=== PATIENT | female | born 1955 | race African-American/Black ===

== ENCOUNTER 2016-05-22 04:42 | Inpatient (IN) | payer OTHER ==
--- NOTE | ~2016-05-22 | BMI ---
[facility] Nutrition Therapy DATE: 05/23/16 Patient: JULIO JIMENEZ Physician: MAYUR Address: [address] [facility] Room/Bed: [address] [place] [address], Zip: [place] [address] Admit Date: 05/22/16 Date of : 51 Height: 4 9 Weight: 189 86 HIGH BMI NOTE: ANTHROPOMETRICS: HT: 4'9" WT: 86 KG BMI: 41 INTERVENTION: 1. CLEAR LIQUID DIET RECOMMENDATIONS: 1. ONCE MEDICALLY FEASIBLE, ADVANCE TO A HEART HEALTHY DIET TOLERATED. Respectfully, WILDER OSULLIVAN RD, LD Food and Nutritional Services [facility] cc: client file
--- NOTE | ~2016-05-22 | CR63 ---
[facility] A Service of [facility] & [facility] RADIOLOGY TEXT RESULTS PATIENT: JULIO JIMENEZ LOCATION: [facility] 321- : 53 UNIT #: [id number] AGE: [address]: SISSY SORTO MD SEX: F ORDER DR: [id number] [facility] [address] [facility]. [place], [place] [address] [id number] I MR#: [id number] Acc #: [id number] NAME: JULIO JIMENEZ : 1955 SEX: F STUDY DATE/TIME: 05/22/2016 10:25 UNIT: [address] ROOM: [facility] STUDY DESCRIPTION: CR Chest 2 View Attending Physician: Rayna Riley M.D. Ordering Physician: Rayna Riley M.D. Primary Care Physician: Liv Richardson M.D. MEDICAL IMAGING REPORT This report is preliminary unless electronic signature is present EXAM Chest PA and lateral. HISTORY Cough, congestion, shortness of breath beginning 1 week ago. FINDINGS PA and lateral views of the chest are obtained. The cardiac size in the patient is upper limits of normal. Pulmonary vascular markings are normal. The examination shows an infiltrate in the right lower lobe posteriorly. This is best appreciated on the lateral film. Postsurgical changes are seen in the aorticopulmonary window and there is enlargement of the central pulmonary arteries. CONCLUSION 1. Right lower lobe infiltrate consistent with pneumonia. 2. Mild cardiac enlargement with enlargement of the central pulmonary arteries. Postsurgical changes in the left hilum. Dictated by... Edison Crystal M.D. THIS IS AN ELECTRONICALLY VERIFIED REPORT Edison Crystal M.D. at 05/24/2016 2:19 PM ASHLEIGH/rosmery TD: 05/22/2016 22:20 JOB #: [id number] MEDICAL IMAGING REPORT Page 1 of 1 COPY
--- NOTE | ~2016-05-22 | HP ---
Unit #: [id number] #: [id number] Patient: JULIO JIMENEZ [id number] [address] [place], [place] [address] [id number] I MR#: [id number] NAME: JULIO JIMENEZ ROOM: 321 Age: 60 Sex: F Admission Date: 05/22/2016 : 1955 Attending Physician: Rayna Riley M.D. Primary Care Physician: Liv Richardson M.D. HISTORY AND PHYSICAL CHIEF COMPLAINT Abdominal pain. HISTORY OF PRESENT ILLNESS The patient is a 60-year-old female with a past medical history of chronic kidney disease, COPD, obstructive sleep apnea, lung cancer, diabetes, hypertension, hyperlipidemia, and schizoaffective disorder, who presented to the emergency department for evaluation of the above. The patient is a poor historian and somewhat somnolent. She states that she has had a four to five day history of worsening abdominal pain. The pain is in her upper abdomen. She describes it as "sharp." It has been constant in nature. It is exacerbated by eating. There are no alleviating factors. She has had chills but no documented fever. She has had nausea and vomiting in association with the pain. Of note, she was hospitalized at [facility] two weeks ago for pancreatitis (no records). In the emergency department, a CT of the abdomen and pelvis was done and showed findings concerning for acute pancreatitis with no definite pseudocyst. There is also possible infiltrate or atelectasis in the right lower lobe. She was given one liter of normal saline, as well as Dilaudid in the emergency department. She was initially admitted by Dr. Riley, and Zosyn was started. Additionally, Drs. Mcneill and Jerald were consulted for possible pneumonia and acute pancreatitis, respectively. Also of note, the patient received 1 mg of Dilaudid in the emergency department. Per ER notes, the patient became difficult to rouse. Oxygen saturation was noted to be 55% to 60% on room air. She was given 0.8 mg of Narcan. An ABG was done and showed a pH of 7.337, PCO2 of 53.7, and PO2 of 84.1 on two liters. PAST MEDICAL HISTORY 1. Admission to [facility] two weeks ago for pancreatitis (no records). 2. Admission to [facility] August 21-2015, for abdominal pain and acute on chronic kidney disease. 3. Spinal stenosis. 4. Diabetes. 5. Schizoaffective disorder. 6. Chronic obstructive pulmonary disease, not on home oxygen. 7. Obstructive sleep apnea, not on CPAP. 8. Hypertension. 9. Hyperlipidemia. 10. History of pancreatitis. 11. History of lung cancer, status post partial lobectomy. Unit #: [id number] #: [id number] Patient: JULIO JIMENEZ PAST SURGICAL HISTORY 1. Partial lung lobectomy for malignancy. 2. Cholecystectomy. 3. Partial thyroidectomy. 4. Hysterectomy. 5. EGD and colonoscopy. SOCIAL HISTORY The patient lives with her daughter. She walks with a cane. She smokes a pack of cigarettes daily. She denies alcohol use. FAMILY HISTORY Notable for her mother having chronic kidney disease. ALLERGIES No known allergies. HOME MEDICATIONS 1. Bumex. 2. Omeprazole. 3. Divalproex. 4. Donepezil. 5. Doxycycline. 6. Gabapentin. 7. Hydralazine. 8. Mirtazapine. 9. Quetiapine. 10. Zoloft. Home medications will need to be reviewed and verified. REVIEW OF SYSTEMS A complete review of systems is negative except as indicated in the History of Present Illness. The patient states that her blood sugars are typically in the 200-300 range. PHYSICAL EXAMINATION VITAL SIGNS: Temperature is 98.7, pulse 68, respirations 18, blood pressure 117/65, and oxygen saturation currently 95% on 3 liters but previously in the 50s after Dilaudid. GENERAL: Patient is an female who is somnolent but wakes to voice. She falls asleep intermittently during the course of our interaction. HEENT: Head is atraumatic. Mucous membranes are moist. NECK: Supple. Trachea is midline. CARDIOVASCULAR: Regular rate and rhythm. LUNGS: Decreased breath sounds bilaterally with a few scattered expiratory wheezes. Breathing is not labored. ABDOMEN: Soft. She is mildly tender to palpation in the epigastric area. Bowel sounds are present in all four quadrants. EXTREMITIES: Nontender with no pedal edema. NEUROLOGIC: Patient is oriented to person and place. She is unsure of the year. PSYCHIATRIC: Patient is cooperative. SKIN: Skin of examined areas is warm and dry. DIAGNOSTIC STUDIES Unit #: [id number] #: [id number] Patient: JULIO JIMENEZ LABORATORY: Complete blood count notable for MCV of 80.4. Comprehensive metabolic panel notable for sodium of 127, chloride 89, glucose 155, BUN and creatinine 38 and 2.1, respectively, calcium is 8.2 but corrects when albumin of 2.7 is accounted for, and alkaline phosphatase is 119. Amylase and lipase are 319 and 293, respectively. Arterial blood gas shows a pH of 7.337, PCO2 of 53.7, and PO2 of 84.1, on 2 liters. IMAGING: CT of the abdomen and pelvis shows findings concerning for acute pancreatitis, as well as possible atelectasis versus infiltrate. ASSESSMENT The patient is a 60-year-old female with: 1. Acute pancreatitis. The patient denies alcohol use. Home medications will need to be reviewed. Another list includes hydrochlorothiazide which could possibly be contributing. She was hospitalized at [facility] within the past month for pancreatitis. Records have been requested by Dr. Marques. Additionally, a right upper quadrant ultrasound has been ordered. 2. Acute respiratory failure, hypoxic. The patient had received Dilaudid. CT of the abdomen and pelvis showed possible atelectasis versus infiltrate. The patient states that she has had a cough but no fever. Dr. Mcneill is following. The patient is currently on Zosyn. 3. Hyponatremia. The patient's sodium was 139 on February 29, 2016. It is 127 today. 4. Chronic kidney disease. The patient's creatinine was 2.4 on February 29, 2016. It is 2.1 today. The patient has seen Dr. Massimo De La Fuente in the past. 5. Chronic obstructive pulmonary disease with continued tobacco abuse. 6. Obstructive sleep apnea, not on CPAP. 7. History of lung cancer, status post partial lobectomy. 8. Diabetes. 9. Hypertension. 10. Hyperlipidemia. 11. Schizoaffective disorder. 12. Possible altered mental status. The patient's baseline is unknown. She has a possible history of dementia. PLAN 1. Admit to intermediate level. 2. Dr. Marques has already seen the patient regarding pancreatitis. A right upper quadrant ultrasound has been ordered. She is receiving fluids of normal saline at 100 mL/hour. 3. Repeat ABG. 4. Procalcitonin level. 5. Blood cultures x2 if not already done. 6. Sputum culture and sensitivity. 7. Supplemental oxygen. 8. P.r.n. DuoNebs. 9. Neuro checks. 10. TSH, B12, and folate. 11. Check EKG and cardiac enzymes. 12. Urine sodium and osmolality. 13. Serum osmolality. 14. Repeat BMP later this evening to follow up hyponatremia. 15. Repeat labs in the morning including amylase and lipase. 16. SCDs for DVT prophylaxis. 17. Additional workup and consultants based on above. Unit #: [id number] #: [id number] Patient: JULIO JIMENEZ 1. Dictated by Maye Valentine M.D. AW/rosalio TD: 05/22/2016 16:37 JOB #: [id number] HISTORY AND PHYSICAL Page 1 of 1 X Maye Valentine MD X HISTORY AND PHYSICAL
--- NOTE | ~2016-05-22 | US6 ---
[facility] A Service of [facility] & [facility] RADIOLOGY TEXT RESULTS PATIENT: JULIO JIMENEZ LOCATION: [facility] - : 53 UNIT #: [id number] AGE: [address]: SISSY SORTO MD SEX: F ORDER DR: [id number] [facility] [address] [facility]. [place], [place] [address] [id number] I MR#: [id number] Acc #: [id number] NAME: JULIO JIMENEZ : 1955 SEX: F STUDY DATE/TIME: 05/22/2016 16:46 UNIT: A U ROOM: [facility] STUDY DESCRIPTION: US Abdominal Limited Attending Physician: Rayna Riley M.D. Ordering Physician: Rayna Riley M.D. Primary Care Physician: Liv Richardson M.D. MEDICAL IMAGING REPORT This report is preliminary unless electronic signature is present EXAM Right upper quadrant ultrasound, 05/22/2016 INDICATIONS 60-year-old female with pain for a month. History of cholecystectomy 10 years ago. Right lower quadrant pain for a month according to the patient. Pancreatitis. TECHNIQUE Sonographic imaging of the right upper quadrant was performed. Correlation is made with CT 05/22/2016. FINDINGS RIGHT UPPER QUADRANT ULTRASOUND: The pancreas was obscured by bowel gas and not seen or evaluated. Please see CT 05/22/2016 for further details regarding abnormal appearance of the pancreas and acute pancreatitis. Survey images of the liver demonstrate no focal mass or intrahepatic ductal dilatation or ascites. Liver measures approximately 17.9 cm, long axis. The right kidney is nonobstructed and measures about 11.2 cm, long axis. In the lower-pole right kidney, there is a probably benign complicated cyst measuring 16 x 14 mm; this appears to correspond to a very subtle proteinaceous or hemorrhagic cyst in the lower-pole right kidney. Suggest a followup ultrasound in 1 year to reassess stability. Gallbladder is surgically absent. Extrahepatic common bile duct is dilated up to about 1 cm, likely physiologic given the history of cholecystectomy. IMPRESSION 1. Surgical absence of the gallbladder. 2. The pancreas was not visualized or assessed. Please see CT performed 05/22/2016 for further details regarding acute pancreatitis in this patient. [facility] A Service of [facility] & [facility] RADIOLOGY TEXT RESULTS PATIENT: JULIO JIMENEZ LOCATION: [facility] 321-01 : 53 UNIT #: [id number] AGE: [address]: SISSY SORTO MD SEX: F ORDER DR: 3. Probably benign proteinaceous or hemorrhagic cyst in the lower-pole right kidney measures 16 mm. See discussion above regarding followup recommendations. 4. Probable physiologic dilatation of the extrahepatic common bile duct up to 10 mm. Dictated by... Rock Schafer M.D. THIS IS AN ELECTRONICALLY VERIFIED REPORT Rock Schafer M.D. at 05/23/2016 8:37 AM BÁRBARA/carl TD: 05/23/2016 00:59 JOB #: [id number] MEDICAL IMAGING REPORT Page 1 of 1 COPY
--- NOTE | ~2016-05-22 | EKG ---
PATIENT: JULIO JIMENEZ UNIT #: [id number] Ventricular Rate: 71 BPM Atrial Rate: 71 BPM P-R Interval: 202 ms QRS Duration: 94 ms Q-T Interval: 454 ms QTC Calculation(Bezet): 493 ms P Russian [place]: 89 degrees Calculated R Russian Mission: 89 degrees Calculated T Russian Mission: 85 degrees Diagnosis Line: Normal sinus rhythm Diagnosis Line: Prolonged QT Diagnosis Line: Abnormal ECG Diagnosis Line: When compared with ECG of 04-MAR-2015 01:05, Diagnosis Line: Questionable change in QRS axis Diagnosis Line: Confirmed by JAQUI STRATTON MD ([id number]) on 05/22/2016 Diagnosis Line: 10:32:47 PM INTERPRETING MD: CHAYITO ALANIZ
--- NOTE | ~2016-05-22 | CT4 ---
[facility] A Service of [facility] & [facility] RADIOLOGY TEXT RESULTS PATIENT: JULIO JIMENEZ LOCATION: [facility] 321-01 : 51 UNIT #: [id number] AGE: [address]: Rayna Riley MD SEX: F ORDER DR: [id number] [facility] [address] [facility] [place], [place] [address] [id number] I MR#: [id number] Acc #: [id number] NAME: JULIO JIMENEZ : 1955 SEX: F STUDY DATE/TIME: 05/22/2016 04:31 UNIT: CEDOF ROOM: [address] STUDY DESCRIPTION: CT Abd and Pelv Wo Cont Attending Physician: Rayna Riley M.D. Ordering Physician: Owen Alexander M.D. Primary Care Physician: Liv Richardson M.D. MEDICAL IMAGING REPORT This report is preliminary unless electronic signature is present EXAM CT abdomen and pelvis 05/22/2016 at 04:31 INDICATION Generalized abdominal pain with nausea for 4 days. History of pancreatitis. TECHNIQUE Axial noncontrast images were obtained through the abdomen and pelvis. Multiplanar reformats were obtained. Comparison made with 03/19/2016. This CT examination was performed with one or more of the following radiation dose reduction techniques: automatic exposure control, adjustment of mA and/or kV according to patient size, and iterative reconstruction. FINDINGS ABDOMEN: Heart is enlarged. New infiltrate or atelectasis noted in the right lower lobe. There is some chronic scarring in the lingula. There is a small hiatal hernia. Gallbladder surgically absent. There is diffuse fat stranding around the pancreas compatible with acute pancreatitis. This is worse than on the prior study. No definite pseudocyst is seen on this noncontrast study. No renal or ureteral stones are seen. There is no hydronephrosis. The adrenal glands are enlarged but unchanged, probably secondary to hyperplasia. Unenhanced solid organs are otherwise normal. There is diffuse atherosclerotic disease. Unopacified GI tract is otherwise grossly normal. PELVIS: The appendix is normal. The remainder of the unopacified GI tract is normal as well. The bladder is normal. Uterus is surgically absent. IMPRESSION 1. Acute pancreatitis. The degree of stranding is worse as compared with STS. [facility] A Service of [facility] RADIOLOGY TEXT RESULTS PATIENT: JULIO JIMENEZ LOCATION: [facility] 321-01 : 51 UNIT #: [id number] AGE: [address]: Rayna Riley MD SEX: F ORDER DR: 03/19/2016. No definite pseudocysts are seen. 2. Infiltrate or atelectasis in the right lower lobe. Atelectasis is favored. 3. No renal or ureteral stones. No hydronephrosis. 4. Grossly normal unopacified GI tract, including the appendix. 5. Hysterectomy and cholecystectomy. 6. Diffuse atherosclerotic disease. Dictated by... Antonio Becerril Jr., M.D. THIS IS AN ELECTRONICALLY VERIFIED REPORT Antonio Becerril Jr., M.D. at 05/22/2016 10:39 PM YAMILETH/jennifer TD: 05/22/2016 07:19 JOB #: [id number] MEDICAL IMAGING REPORT Page 1 of 1 COPY
--- NOTE | ~2016-05-22 | DS ---
Unit #: [id number] #: [id number] Patient: JULIO JIMENEZ [id number] [address] [place], [place] [address] [id number] MR#: [id number] NAME: JULIO JIMENEZ ROOM: 321 Age: 60 Sex: F Admission Date: 05/22/2016 : 1955 Discharge Date: 05/24/2016 Attending Physician: Mason De La Fuente M.D. Primary Care Physician: Liv Richardson M.D. DISCHARGE SUMMARY DISCHARGE DIAGNOSES 1. Acute pancreatitis. 2. Acute respiratory failure, hypoxic. 3. Hyponatremia. 4. Chronic kidney disease. 5. Chronic obstructive pulmonary disease. 6. Right lower lobe pneumonia. HOSPITAL COURSE The patient is a 60-year-old female with history of chronic kidney disease, COPD, obstructive sleep apnea and lung cancer. Presented to the emergency room with abdominal pain. See the H and P for full detailed history. The patient was admitted with acute pancreatitis. CT scan of the abdomen and pelvis was done that showed findings concerning for acute pancreatitis with no definite pseudocyst. The chest x-ray showed right lower lobe pneumonia. The patient was started on IV antibiotics with Zosyn. The patient's hospital course was complicated with hypoxia secondary to Dilaudid. The patient was more somnolent after Dilaudid. The patient was hypoxic with saturation of 55% to 60% on room air. The patient was weaned off Dilaudid and started on Lortab, the home medications. However, the patient signed out AMA last night without any medications secondary to back pain. The patient did not receive any pain medications. PHYSICAL EXAMINATION VITALS: Yesterday during rounding, the patient's vitals were a temperature of 98.4, pulse 94, respirations 20, blood pressure 180/98. HEENT: Head atraumatic, normocephalic. Pupils are equal, round and reactive to light and accommodation. Extraocular movements are intact. NECK: Supple. LUNGS: Decreased air entry at the bases. HEART: Regular rate. ABDOMEN: Positive (1) tenderness. MUSCULOSKELETAL: Back pain. EXTREMITIES: No cyanosis. NEUROLOGIC: Alert, awake, oriented and asking for more pain medication. DIAGNOSTIC STUDIES LAB DATA: The patient's blood gases - pH of 7.35, pCO2 53.8, pO2 65, oxygen saturation 89.5. Glucose 186, BUN 46, creatinine 1.7, sodium 135, potassium 4.3, chloride 98, bicarb 27, calcium 7.8, AST 10, ALT 8, alkaline phosphatase 121, amylase 52, lipase 36. WBC 7.3, hemoglobin 10.9, hematocrit 34.7, platelets 300. UA shows 1+ leukocyte esterase. Blood cultures remain negative. Sputum culture shows normal respiratory myah. Unit #: [id number] #: [id number] Patient: JULIO JIMENEZ IMAGING: The patient had a CT of the abdomen and pelvis that showed acute pancreatitis. The degree of stranding is worse as compared with 03/19/2016. No definite pseudocysts are seen. Infiltrate or atelectasis in the right lower lobe. Atelectasis is favored. No renal or ureteral stones. No hydronephrosis. The patient had a chest x-ray that showed right lower lobe infiltrate consistent with pneumonia. The patient also had an abdominal ultrasound that showed surgical absence of the gallbladder. The patient signed out AMA without any home medications. Dictated by... Rukhsana Ho/francia TD: 05/28/2016 10:20 JOB #: [id number] DISCHARGE SUMMARY Page 1 of 1 X X DISCHARGE SUMMARY
--- NOTE | ~2016-05-22 | CO ---
Unit #: [id number] #: [id number] Patient: JULIO JIMENEZ [id number] [address] [address] [id number] I MR#: [id number] NAME: JULIO JIMENEZ ROOM: 321 Age: 60 Sex: F Admission Date: 05/22/2016 : 1955 Attending Physician: Mason De La Fuente M.D. Primary Care Physician: Liv Richardson M.D. Consultation Date: 05/22/2016 CONSULTATION REPORT REASON FOR CONSULT COPD. HISTORY OF PRESENT ILLNESS This is a very poor historian. 60-year-old -[place] female with past medical history significant for chronic kidney disease, COPD, obstructive sleep apnea noncompliant with CPAP, lung cancer, diabetes, hypertension, hyperlipidemia and schizoaffective disorder, who presented to the emergency room for evaluation of abdominal pain. The patient apparently was complaining of sharp abdominal pain even though right now she is feeling more comfortable. She said the ER physician gave her some IV pain medication that took care of it. However, also, she admitted that she has been short of breath, wheezing and coughing for the last few days. She is on oxygen and she is supposed to be on CPAP but she is very noncompliant. PAST MEDICAL HISTORY 1. Recurrent pancreatitis. 2. Diabetes. 3. Schizoaffective disorder. 4. COPD. 5. Obstructive sleep apnea. 6. Hypertension. 7. Hyperlipidemia. 8. History of lung cancer, status post partial lobectomy. PAST SURGICAL HISTORY 1. Partial lung lobectomy for malignancy. 2. Cholecystectomy. 3. Partial thyroidectomy. 4. Hysterectomy. 5. EGD. 6. Colonoscopy. SOCIAL HISTORY The patient lives with her daughter. She walks with a cane. She smokes a pack of cigarettes day. No history of alcohol or drug abuse. FAMILY HISTORY Chronic kidney disease. ALLERGIES No known drug allergies. Unit #: [id number] #: [id number] Patient: JULIO JIMENEZ HOME MEDICATIONS 1. Bumex. 2. Omeprazole. 3. Donepezil. 4. Doxycycline. 5. Neurontin. 6. Hydralazine. 7. Mirtazapine. 8. Quetiapine. 9. Zoloft. REVIEW OF SYSTEMS Twelve point review of systems were obtained and were as mentioned above. PHYSICAL EXAMINATION VITALS: Temperature 98.3, respiratory rate 22, O2 saturation 96%, blood pressure 123/69. HEENT: Atraumatic, normocephalic. PERRLA, EOMI. NECK: Supple. No JVD, no lymphadenopathy. CHEST: Bilateral diffuse rhonchi and wheezing. HEART: S1, S2. No murmurs or gallops or rubs. ABDOMEN: Soft, nontender. Bowel sounds positive. No hepatosplenomegaly. EXTREMITIES: No edema or cyanosis. SKIN: No rashes. HAT CUTTER: Awake, alert. No focal motor/sensory deficits. DIAGNOSTIC STUDIES LABORATORY: Creatinine 2.1, sodium 133, chloride 96, CO2 28, white blood count 8.3. IMAGING: Chest x-ray - no acute infiltrate. ASSESSMENT 1. Acute exacerbation of chronic obstructive pulmonary disease. 2. Acute on chronic pancreatitis. 3. Obstructive sleep apnea noncompliance. 4. Chronic anemia. 5. Chronic kidney disease. 6. Hyponatremia. 7. Morbid obesity. PLAN 1. Will continue patient on IV hydration with pain management. 2. IV steroids, on bronchodilator. 3. IV antibiotics. 4. GI eval for recurrent pancreatitis. 5. Physical therapy. 6. DVT prophylaxis. Dictated by... Rukhsana Campbell Unit #: [id number] #: [id number] Patient: JULIO JIMENEZ TD: 05/24/2016 08:05 JOB #: [id number] CONSULTATION REPORT Page 1 of 1 X BRITTANY CHAVEZ MD CONSULTATION REPORT
[2016-05-22 03:08] LABS: BASOPHIL# 0.1 X10e3 (0-0.3); EOSINOPHIL# 0.1 X10e3 (0-0.7); EOSINOPHIL% 0.5 % (0.0-7.0); HEMATOCRIT 37.6 % (35.0-45.0); LYMPHOCYTE# 2.3 X10e3 (1.0-3.5); LYMPHOCYTE% 22.6 % (17.0-45.0); MEAN CELL VOLUME 80.4 FL (83-96); MEAN CORPUSCULAR HEMOGLOBIN 25.7 PG (28-34); MEAN CORPUSCULAR HGB CONC 31.9 g/dL (30-36); MEAN PLATELET VOLUME 8.4 FL (6.5-11.5); MONOCYTE# 0.8 X10e3 (0-1.0); MONOCYTE% 7.5 % (3.0-12.0); NEUTROPHIL% 68.4 % (40-75); PLATELET COUNT 344 X10e3 (140-420); RED BLOOD COUNT 4.68 X10e (3.90-5.30); RED CELL DISTRIBUTION WIDTH 20.2 % (11.0-15.5); WHITE BLOOD COUNT 10.3 X10e3 (4.0-10.5)
[2016-05-22 03:10] LABS: DIFF IND NO
[2016-05-22 03:34] LABS: ALBUMIN SERUM 2.7 g/dL (3.5-5.0); BILIRUBIN, DIRECT 0.1 mg/dL (0.0-0.2); BILIRUBIN,INDIRECT 0.5 mg/dL (0.0-0.9); BILIRUBIN,TOTAL 0.6 mg/dL (0.2-2.0); BUN/CREATININE RATIO 18.09; CALCIUM SERUM 8.2 mg/dL (8.4-10.2); CREATININE SERUM 2.1 mg/dL (0.6-1.4); GLOM FILT RATE Estimated 28.5 mL/min (>60); POTASSIUM 3.5 mmol/L (3.5-5.1); PROTEIN TOTAL SERUM 7.3 g/dL (6.0-8.3)
[~2016-05-22 04:42] MED LIST: ACID REDUCER20 MG PO; ALBUTEROL17 GM INH; ALPHAGAN P5 ML OD; ALPHAGAN P5 ML OP; ALPRAZOLAM PO; AMLODIPINE BESYL5 MG PO; ARICEPT PO; ASPIRIN PO; ASPIRIN81 MG PO; ATORVASTATIN CA10 MG PO; ATORVASTATIN CA20 MG PO; BACLOFEN10 MG PO; BAYER ASPIRIN325 M1 PO; BENTYL20 MG; BENZONATATE PO; BUMEX1 MG PO; CLARITIN10 M2 PO; COGENTIN PO; COMBIVENT INH14.7 G1 IH; COMBIVENT U/D3 ML INH; COUMADIN5 MG PO; DARVOCET-N 1001 TAB PO; DEPAKOTE PO; DICYCLOMINE HCL20 MG PO; DIVALPROEX SOD500 M1 PO; DIVALPROEX SOD500 M2 PO; DULERA 200 MCG/13 GM IH; FLEXERIL10 MG PO; FUROSEMIDE40 MG PO; GLUCOPHAGE500 MG PO; GUAIFENESIN LA600 M1 PO; HUMALOG MI100 UNIT/2 SUBQ; HUMALOG MI100 UNIT/5 SUBQ; JANUMET 50-1,1 UDTAB PO; JANUVIA PO; K-DUR20 ME1 PO; LAMICTAL PO; LANTUS100 U/M1 SQ; LASIX PO; LEVAQUIN750 M1 PO; LEVAQUIN750 MG PO; LEVOFLOXACIN500 MG PO; LEXAPRO PO; LINZESS145 MCG PO; LIPITOR20 MG PO; LISINOPRIL PO; LISINOPRIL10 MG PO; LISINOPRIL20 MG PO; LITE COAT ASPI325 M1 PO; LOPRESSOR HCT1 EACH PO; LORTAB 101 TAB 10/5 PO; LORTAB 7.5-3251 EACH PO; LOVENOX100 MG/ML INJ; LYRICA50 MG PO; MACROBID 100 M100 MG PO; MELOXICAM15 MG PO; MEMANTINE HCL10 MG PO; METFORMIN HCL500 M3 PO; METFORMIN PO; METOPROLOL SUCC50 MG PO; METOPROLOL TAR25 MG PO; NAMENDA10 MG PO; NAPROXEN PO; NORVASC PO; NORVASC10 MG PO; NOVOLOG100 U/M2 SQ; NOVOLOG7030 SUBQ; OMEPRAZOLE40 M1 PO; PANTOPRAZOLE SO40 MG PO; PENICILLIN; PEPCID AC20 M2 PO; PERCOCET5/325 PO; PIOGLITAZONE HC15 MG PO; POTASSIUM99 M1 PO; PREDNISONE PO; PREDNISONE5 M1 PO; PRILOSEC PO; PRINIVIL20 M1 PO; PROAIR HFA8.5 GM IH; PROAIR HFA8.5 GM INH; PROTONIX PO; PROTONIX20 MG PO; REQUIP0.25 MG PO; RISPERIDONE PO; ROPINIROLE HC0.25 MG PO; SEROQUEL PO; SEROQUEL XR200 MG PO; SEROQUEL XR400 M1 PO; SEROQUEL XR50 MG PO; SEROQUEL400 MG PO; SERTRALINE HCL100 MG PO; SPIRIVA18 MCG INH; TRADJENTA5 MG PO; TYLENOL #3 PO; TYLENOL325 M1 PO; ULTRAM PO; VITAMIN D250000 UNIT PO; XANAX0.5 M1 PO; ZESTRIL10 M1 PO; ZITHROMAX PO; ZOFRANODT PO; ZOLOFT PO; ZOLOFT100 MG PO; ZYLOPRIM PO
[2016-05-22 08:58] LABS: ARTERIAL BLD GAS O2 SATURATION 91.4 % (90.0-100.0); ARTERIAL BLOOD GAS CARBOXY HB 4.1 %sat (0.0-9.0); ARTERIAL BLOOD GAS HCO3 28.7 mmol/L; ARTERIAL BLOOD GAS MET HB 0.8 %sat (0.0-2.0); ARTERIAL BLOOD GAS PO2 84.1 mmHg (80.0-100); ARTERIAL BLOOD GAS pH 7.337 (7.350-7.450)
[2016-05-22 08:59] LABS: ARTERIAL BLOOD GAS ART SITE RIGHT RADIAL; ARTERIAL BLOOD GAS DELIVERY NASAL CANNULA; ARTERIAL BLOOD GAS PCO2 53.7 mmHg (35.0-45.0); ARTERIAL DRAW? YES
[2016-05-22 17:10] LABS: BUN/CREATININE RATIO 20.95; CALCIUM SERUM 7.8 mg/dL (8.4-10.2); CREATININE SERUM 2.1 mg/dL (0.6-1.4); GLOM FILT RATE Estimated 28.5 mL/min (>60); POTASSIUM 4.6 mmol/L (3.5-5.1)
[2016-05-22 17:21] LABS: FOLATE (FOLIC ACID) 11.9 ng/mL (>5.8)
[2016-05-22 17:46] LABS: PROCALCITONIN 0.42 NG/ML
[2016-05-22 17:55] LABS: ARTERIAL BLD GAS O2 SATURATION 81.8 % (90.0-100.0); ARTERIAL BLOOD GAS CARBOXY HB 2.1 %sat (0.0-9.0); ARTERIAL BLOOD GAS HCO3 29.4 mmol/L; ARTERIAL BLOOD GAS MET HB 0.7 %sat (0.0-2.0); ARTERIAL BLOOD GAS pH 7.356 (7.350-7.450)
[2016-05-22 17:56] LABS: ARTERIAL BLOOD GAS ART SITE RIGHT BRACHIAL; ARTERIAL BLOOD GAS DELIVERY NASAL CANNULA; ARTERIAL BLOOD GAS PCO2 52.6 mmHg (35.0-45.0); ARTERIAL BLOOD GAS PO2 52.6 mmHg (80.0-100); ARTERIAL DRAW? YES
[2016-05-22] MEDS ORDERED: BUMEX2 MG PO (18:05)
[2016-05-22] MEDS ORDERED: SEROQUEL XR400 M1 PO (18:06)
[2016-05-22] MEDS ORDERED: HYDROCODON-ACE1 EAC9 PO (18:06)
[2016-05-22] MEDS ORDERED: DEPAKOTE ER PO ×2 (18:07→18:08)
[2016-05-22] MEDS ORDERED: SERTRALINE HCL100 M1 PO (18:08)
[2016-05-22] MEDS ORDERED: HYDRALAZINE HCL50 MG PO (18:09)
[2016-05-22] MEDS ORDERED: NITROGLYGERIN0.4 MG SL (18:10)
[2016-05-22] MEDS ORDERED: HUMALOG MI100 UNIT/1 (18:10)
[2016-05-22 23:02] LABS: CK TOTAL 55 IU/L (26-140)
[2016-05-23 02:55] LABS: ARTERIAL BLD GAS O2 SATURATION 89.5 % (90.0-100.0); ARTERIAL BLOOD GAS CARBOXY HB 1.5 %sat (0.0-9.0); ARTERIAL BLOOD GAS HCO3 29.7 mmol/L; ARTERIAL BLOOD GAS MET HB 0.9 %sat (0.0-2.0); ARTERIAL BLOOD GAS pH 7.351 (7.350-7.450)
[2016-05-23 02:56] LABS: ARTERIAL BLOOD GAS PCO2 53.8 mmHg (35.0-45.0)
[2016-05-23 02:57] LABS: ARTERIAL BLOOD GAS ALLEN TEST NORMAL; ARTERIAL BLOOD GAS ART SITE RIGHT RADIAL; ARTERIAL BLOOD GAS DELIVERY NASAL CANNULA; ARTERIAL BLOOD GAS PO2 65.4 mmHg (80.0-100); ARTERIAL DRAW? YES
[2016-05-23 04:43] LABS: HEMATOCRIT 34.7 % (35.0-45.0); MEAN CELL VOLUME 81.6 FL (83-96); MEAN CORPUSCULAR HEMOGLOBIN 25.9 PG (28-34); MEAN CORPUSCULAR HGB CONC 31.8 g/dL (30-36); MEAN PLATELET VOLUME 8.9 FL (6.5-11.5); RED BLOOD COUNT 4.26 X10e (3.90-5.30); RED CELL DISTRIBUTION WIDTH 20.6 % (11.0-15.5); WHITE BLOOD COUNT 8.3 X10e3 (4.0-10.5)
[2016-05-23 05:07] LABS: CK TOTAL 32 IU/L (26-140)
[2016-05-23 05:12] LABS: ALBUMIN SERUM 2.5 g/dL (3.5-5.0); BILIRUBIN,TOTAL 0.5 mg/dL (0.2-2.0); BUN/CREATININE RATIO 23.33; CALCIUM SERUM 7.5 mg/dL (8.4-10.2); CREATININE SERUM 2.1 mg/dL (0.6-1.4); GLOM FILT RATE Estimated 28.5 mL/min (>60); POTASSIUM 4.7 mmol/L (3.5-5.1)
[2016-05-24 06:08] LABS: HEMATOCRIT 34.7 % (35.0-45.0); HEMOGLOBIN 10.9 gm/dL (12.0-16.0); MEAN CELL VOLUME 81.5 FL (83-96); MEAN CORPUSCULAR HEMOGLOBIN 25.5 PG (28-34); MEAN CORPUSCULAR HGB CONC 31.3 g/dL (30-36); MEAN PLATELET VOLUME 9.3 FL (6.5-11.5); RED BLOOD COUNT 4.25 X10e (3.90-5.30); RED CELL DISTRIBUTION WIDTH 20.3 % (11.0-15.5); WHITE BLOOD COUNT 7.3 X10e3 (4.0-10.5)
[2016-05-24 06:45] LABS: ALBUMIN SERUM 2.4 g/dL (3.5-5.0); BILIRUBIN,TOTAL 0.4 mg/dL (0.2-2.0); BUN/CREATININE RATIO 27.05; CALCIUM SERUM 7.8 mg/dL (8.4-10.2); CREATININE SERUM 1.7 mg/dL (0.6-1.4); GLOM FILT RATE Estimated 36.8 mL/min (>60); POTASSIUM 4.3 mmol/L (3.5-5.1); PROTEIN TOTAL SERUM 6.9 g/dL (6.0-8.3)
[2016-05-24 14:46] LABS: SODIUM URINE RANDOM 92 mmol/L
[2016-05-24 15:25] LABS: OSMOLALITY,URINE 513 mOsmo/kg (250-900)
== END 2016-05-24 20:30 | disposition left against medical advice (07) | DRG 438 ==
LOC: CED 04:42 → CEDOF 05:30 → C3A PCU 11:12
PROVIDERS: Emergency Medicine; Family Medicine; Internal Medicine; Physician Assistant Medical
DX: K85.90 Acute pancreatitis without necrosis or infection, unspecified (principal); J96.01 Acute respiratory failure with hypoxia; G92 Toxic encephalopathy; J18.9 Pneumonia, unspecified organism; F03.90 Unspecified dementia, unspecified severity, without behavioral disturbance, psychotic disturbance, mood disturbance, and anxiety; E11.9 Type 2 diabetes mellitus without complications; I12.9 Hypertensive chronic kidney disease with stage 1 through stage 4 chronic kidney disease, or unspecified chronic kidney disease; D64.9 Anemia, unspecified; E87.1 Hypo-osmolality and hyponatremia; J44.1 Chronic obstructive pulmonary disease with (acute) exacerbation; G47.33 Obstructive sleep apnea (adult) (pediatric); Z85.9 Personal history of malignant neoplasm, unspecified; Z85.118 Personal history of other malignant neoplasm of bronchus and lung; N18.9 Chronic kidney disease, unspecified; F25.9 Schizoaffective disorder, unspecified; Z90.49 Acquired absence of other specified parts of digestive tract; Z90.710 Acquired absence of both cervix and uterus; Z84.1 Family history of disorders of kidney and ureter; E66.01 Morbid (severe) obesity due to excess calories; I25.2 Old myocardial infarction; M48.00 Spinal stenosis, site unspecified; F17.210 Nicotine dependence, cigarettes, uncomplicated
CPT/HCPCS: 36415; 36600; 71020; 74176; 76705; 80048; 80053; 80076; 80164; 82150; 82308; 82550; 82607; 82746; 82803; 82947; 83690; 83930; 83935; 84300; 84443; 84484; 85025; 85027; 86140; 87040; 87070; 87205; 93005; 94640; 94760; 96361; 96374; 96375; 97162; 97165; 97535; 99285; C9113; G8978-GP; G8979-GP; G8987-GO; G8988-GO; J1170; J1650; J1815; J1940; J2310; J2405; J2543; J2920; J2930

== ENCOUNTER → 2016-06-21 | Day surgery (SDC) | payer OTHER ==
[~2016-06-21] MED LIST changes: +AMOX-CLAV 400-1 EACH PO; +ASPIRIN ENTERI325 M1 PO; +BUMEX2 MG PO; +CALCITRIOL0.5 MCG PO; +CEFDINIR300 M1 PO; +DEPAKOTE ER PO; +DOK100 MG PO; +DONEPEZIL HCL10 MG PO; +FERROUS GLUCON324 M1 PO; +GABAPENTIN400 M2 PO; +HUMALOG KW100 UNIT/1 SUBQ; +HUMALOG KW200 UNIT/1 SUBQ; +HUMALOG MI100 UNIT/1; +HYDRALAZINE HC100 MG PO; +HYDRALAZINE HCL50 MG PO; +HYDROCODON-ACE1 EAC9 PO; +ISORDIL PO; +KCL PO; +LINZESS290 MCG PO; +MIRTAZAPINE7.5 MG PO; +MUCUS RELIEF600 M1 PO; +NITROGLYGERIN0.4 MG SL; +NITROSTAT0.4 MG PO; +PROMETHAZINE D118 ML PO; +SERTRALINE HCL100 M1 PO; +SODIUM BICARBO650 MG PO; +ZANAFLEX PO
--- NOTE | ~2016-06-21 | OR ---
Unit #: [id number] #: [id number] Patient: JULIO JIMENEZ [id number] [address] [place], [place] [address] [id number] O MR#: [id number] NAME: JULIO JIMENEZ ROOM: Date of Procedure: 06/21/2016 Admission Date: 06/21/2016 Surgeon: Cody Marques M.D. : 1955 Attending Physician: Cody Marques M.D. Primary Care Physician: Liv Richardson M.D. OPERATIVE REPORT PROCEDURE PERFORMED Esophagogastroduodenoscopy to descending duodenum, endoscopic retrograde cholangiopancreatography aborted. INDICATIONS FOR PROCEDURE A 60-year-old female with recurrent pancreatitis; abnormal LFTs; persistent upper abdominal, right upper quadrant, and epigastric pain brought in for upper endoscopy and ERCP. MEDICATIONS Monitored anesthesia. POSTOPERATIVE FINDINGS 1. EGD exam shows moderate-sized hiatal hernia. 2. Chronic-appearing gastritis. 3. Normal duodenum and distal duodenum. 4. ERCP was attempted, however, there was very severe redundant force in the descending duodenum and I was unable to locate the ampulla despite many attempts. No cannulation was attempted. PLAN We will consider repeat attempted ERCP by another provider. DESCRIPTION OF PROCEDURE The patient was explained of the procedure, risks, and benefits along with risks and benefits of anesthesia. She was brought to the endoscopy room, laid in a prone position. Monitored anesthesia was given. The scope was passed down the mouth and esophagus, stomach, duodenum, and distal duodenum. Findings as described. Gently, the scope was pulled out. She tolerated this part very well. At this time, we used a side-viewing ERCP scope which was passed down the mouth, all the way into the descending duodenum. I could not locate the CV ampulla, because of multiple redundant force in this area despite several attempts and use of glucagon. Eventually, we aborted the procedure and pulled out the scope. The stomach was decompressed. She tolerated it well. No major complications were seen. Dictated by... Cody Marques M.D. Unit #: [id number] #: [id number] Patient: JULIO JIMENEZ LE/aren TD: 06/21/2016 22:58 JOB #: [id number] OPERATIVE REPORT Page 1 of 1 X Cody Marques MD PROCEDURE OPERATIVE NOTE
[2016-06-21 13:28] LABS: BASOPHIL# 0.1 X10e3 (0-0.3); BASOPHIL% 1.3 % (0-2.5); EOSINOPHIL# 0.1 X10e3 (0-0.7); EOSINOPHIL% 2.5 % (0.0-7.0); HEMATOCRIT 34.2 % (35.0-45.0); HEMOGLOBIN 10.8 gm/dL (12.0-16.0); LYMPHOCYTE# 3.7 X10e3 (1.0-3.5); LYMPHOCYTE% 62.9 % (17.0-45.0); MEAN CELL VOLUME 81.4 FL (83-96); MEAN CORPUSCULAR HEMOGLOBIN 25.7 PG (28-34); MEAN CORPUSCULAR HGB CONC 31.5 g/dL (30-36); MEAN PLATELET VOLUME 8.6 FL (6.5-11.5); MONOCYTE# 0.5 X10e3 (0-1.0); MONOCYTE% 8.7 % (3.0-12.0); NEUTROPHIL# 1.4 X10e3 (1.5-7.1); NEUTROPHIL% 24.6 % (40-75); PLATELET COUNT 276 X10e3 (140-420); RED BLOOD COUNT 4.21 X10e (3.90-5.30); RED CELL DISTRIBUTION WIDTH 20.5 % (11.0-15.5); WHITE BLOOD COUNT 5.8 X10e3 (4.0-10.5)
[2016-06-21 13:29] LABS: DIFF IND YES
[2016-06-21 14:09] LABS: PLATELET ESTIMATE NORMAL (NORMAL); POIKILOCYTOSIS MOD
[2016-06-21 14:51] LABS: ALBUMIN SERUM 2.2 g/dL (3.5-5.0); BILIRUBIN,TOTAL 0.2 mg/dL (0.2-2.0); BUN/CREATININE RATIO 11.53; CALCIUM SERUM 7.9 mg/dL (8.4-10.2); CREATININE SERUM 1.3 mg/dL (0.6-1.4); GLOM FILT RATE Estimated 50.9 mL/min (>60); POTASSIUM 3.8 mmol/L (3.5-5.1); PROTEIN TOTAL SERUM 5.8 g/dL (6.0-8.3)
== END | disposition home or self-care (01) ==
LOC: COPS 08:33
PROVIDERS: Internal Medicine
DX: K29.50 Unspecified chronic gastritis without bleeding (principal); K44.9 Diaphragmatic hernia without obstruction or gangrene; K86.1 Other chronic pancreatitis; K21.9 Gastro-esophageal reflux disease without esophagitis; I12.9 Hypertensive chronic kidney disease with stage 1 through stage 4 chronic kidney disease, or unspecified chronic kidney disease; E11.22 Type 2 diabetes mellitus with diabetic chronic kidney disease; N18.9 Chronic kidney disease, unspecified; E66.9 Obesity, unspecified; I25.2 Old myocardial infarction; G47.30 Sleep apnea, unspecified; F17.210 Nicotine dependence, cigarettes, uncomplicated; J43.9 Emphysema, unspecified; I25.119 Atherosclerotic heart disease of native coronary artery with unspecified angina pectoris; Z79.891 Long term (current) use of opiate analgesic; Z79.4 Long term (current) use of insulin; Z79.899 Other long term (current) drug therapy; Z90.49 Acquired absence of other specified parts of digestive tract; Z95.5 Presence of coronary angioplasty implant and graft; Z90.710 Acquired absence of both cervix and uterus
CPT/HCPCS: 80053; 82150; 82947; 83690; 85025; J1610; J2250

== ENCOUNTER 2016-07-24 19:06 | Emergency (ER) | payer OTHER ==
--- NOTE | ~2016-07-24 | EKG ---
PATIENT: JULIO JIMENEZ UNIT #: [id number] Ventricular Rate: 70 BPM Atrial Rate: 70 BPM P-R Interval: 198 ms QRS Duration: 94 ms Q-T Interval: 420 ms QTC Calculation(Bezet): 453 ms P [place]: 50 degrees Calculated R [place]: 25 degrees Calculated T [place]: 18 degrees Diagnosis Line: Normal sinus rhythm Diagnosis Line: Normal ECG Diagnosis Line: When compared with ECG of 22-MAY-2016 15:47, Diagnosis Line: Questionable change in QRS axis Diagnosis Line: Nonspecific T wave abnormality now evident in Diagnosis Line: Inferior leads Diagnosis Line: Confirmed by JAQUI STRATTON MD ([id number]) on 07/25/2016 Diagnosis Line: 7:41:20 AM INTERPRETING MD: CHAYITO ALANIZ
--- NOTE | ~2016-07-24 | CR72 ---
[facility] A Service of [facility] & [facility] RADIOLOGY TEXT RESULTS PATIENT: JULIO JIMENEZ LOCATION: [facility] : 53 UNIT #: [id number] AGE: [address]: Vadim Atwood MD SEX: F ORDER DR: [id number] [facility] [address] [place], [place] [address] [id number] E MR#: [id number] Acc #: [id number] NAME: JULIO JIMENEZ : 1955 SEX: F STUDY DATE/TIME: 07/24/2016 21:32 UNIT: [facility] ROOM: STUDY DESCRIPTION: CR Chest Single View Portable Attending Physician: Keon Atwood M.D. Ordering Physician: Ed Zander Flores M.D. Primary Care Physician: Liv Richardson M.D. MEDICAL IMAGING REPORT This report is preliminary unless electronic signature is present EXAM Portable chest INDICATIONS Fell out of bed yesterday with shortness of air. 07/24, comparison 05/22/16. FINDINGS A portable view of the chest is obtained. The heart is mildly enlarged. There are postoperative changes in the left hilum. There is mild interstitial prominence in the lower third of the right hemithorax. In the left base, there is blunting of the costophrenic angle and obscuration of the left hemidiaphragm, suggesting a small effusion. Dictated by... Fam Hatch M.D. THIS IS AN ELECTRONICALLY VERIFIED REPORT Fam Hatch M.D. at 07/25/2016 3:38 AM MARIO/carl TD: 07/24/2016 23:40 JOB #: [id number] MEDICAL IMAGING REPORT Page 1 of 1 COPY
--- NOTE | ~2016-07-24 | CR124 ---
[facility] A Service of [facility] RADIOLOGY TEXT RESULTS PATIENT: JULIO JIMENEZ LOCATION: [facility] : 53 UNIT #: [id number] AGE: [address]: Vadim Atwood MD SEX: F ORDER DR: [id number] [facility] [address] [place], [place] [address] [id number] E MR#: [id number] Acc #: [id number] NAME: JULIO JIMENEZ : 1955 SEX: F STUDY DATE/TIME: 07/24/2016 21:35 UNIT: [facility] ROOM: STUDY DESCRIPTION: CR Foot 2 Views Rt Attending Physician: Keon Atwood M.D. Ordering Physician: Jose Roberto Flores M.D. Primary Care Physician: Liv Richardson M.D. MEDICAL IMAGING REPORT This report is preliminary unless electronic signature is present EXAM Right foot, 07/24/2016 INDICATIONS 60-year-old female who fell out of bed yesterday and has foot and ankle pain and swelling. Pain mostly is on the dorsal aspect of the foot. TECHNIQUE Three views. No comparisons. FINDINGS The bones are osteoporotic. Tiny calcaneal spur. Mild degenerative change in the midfoot and hindfoot. No acute fracture. Nonspecific dorsal soft tissue swelling, which may reflect lower extremity edema given similar findings in the right ankle. There is mild degenerative change of the first MTP joint. The patient may be status post osteotomy of the proximal phalanx and middle phalanges of the fourth and fifth digits. Correlate with surgical history. IMPRESSION 1. Osteoporosis with diffuse soft tissue swelling, which may reflect lower extremity edema rather than post-traumatic swelling. 2. No acute fracture. Degenerative changes as described. 3. Imaging features that may reflect prior osteotomy sequelae involving the fourth and fifth digits. Dictated by... Rock Schafer M.D. THIS IS AN ELECTRONICALLY VERIFIED REPORT Rock Schafer M.D. at 07/25/2016 3:17 PM [facility] A Service [facility] RADIOLOGY TEXT RESULTS PATIENT: JULIO JIMENEZ [id number] [birth year] UNIT #: [id number] AGE: [address]: Vadim Atwood MD SEX: F ORDER DR: BÁRBARA/carl TD: 07/25/2016 00:18 JOB #: [id number] MEDICAL IMAGING REPORT Page 1 of 1 COPY
--- NOTE | ~2016-07-24 | CR21 ---
[facility] A Service of [facility] & [facility] RADIOLOGY TEXT RESULTS PATIENT: JULIO JIMENEZ LOCATION: [facility] : 53 UNIT #: [id number] AGE: [address]: Vadim Atwood MD SEX: F ORDER DR: [id number] [facility] [address] [place], [place] [address] [id number] E MR#: [id number] Acc #: [id number] NAME: JULIO JIMENEZ : 1955 SEX: F STUDY DATE/TIME: 07/24/2016 21:33 UNIT: [facility] ROOM: STUDY DESCRIPTION: CR Ankle Min 3 Views Rt Attending Physician: Vadim Atwood Ordering Physician: Ed Zander Flores M.D. Primary Care Physician: Liv Richardson M.D. MEDICAL IMAGING REPORT This report is preliminary unless electronic signature is present EXAM Right ankle, 07/24/2016 INDICATIONS 60-year-old female who fell out of bed yesterday and has foot and ankle swelling and pain. Most of the pain is dorsal. TECHNIQUE Three views of the right ankle. No comparisons. FINDINGS The bones are osteopenic. There is diffuse soft tissue swelling, which is nonspecific. This may reflect edema rather than post-traumatic swelling. There is no acute fracture. Minimal degenerative change in the tibiotalar joint and midfoot. IMPRESSION 1. Diffuse, nonspecific soft tissue swelling. Mild degenerative change but no acute fracture. Dictated by... Rock Schafer M.D. THIS IS AN ELECTRONICALLY VERIFIED REPORT Rock Schafer M.D. at 07/25/2016 3:17 PM BÁRBARA/carl TD: 07/25/2016 00:08 JOB #: [id number] MEDICAL IMAGING REPORT Page 1 of 1 COPY
[~2016-07-24 19:06] MED LIST changes: -AMOX-CLAV 400-1 EACH PO; -ASPIRIN ENTERI325 M1 PO; -CALCITRIOL0.5 MCG PO; -CEFDINIR300 M1 PO; -DOK100 MG PO; -DONEPEZIL HCL10 MG PO; -FERROUS GLUCON324 M1 PO; -GABAPENTIN400 M2 PO; -HUMALOG KW100 UNIT/1 SUBQ; -HUMALOG KW200 UNIT/1 SUBQ; -HYDRALAZINE HC100 MG PO; -ISORDIL PO; -KCL PO; -LINZESS290 MCG PO; -MIRTAZAPINE7.5 MG PO; -MUCUS RELIEF600 M1 PO; -NITROSTAT0.4 MG PO; -PROMETHAZINE D118 ML PO; -SODIUM BICARBO650 MG PO; -ZANAFLEX PO
[2016-07-24 21:45] LABS: BASOPHIL# 0.2 X10e3 (0-0.3); BASOPHIL% 1.6 % (0-2.5); EOSINOPHIL# 0.1 X10e3 (0-0.7); HEMATOCRIT 29.1 % (35.0-45.0); HEMOGLOBIN 8.9 gm/dL (12.0-16.0); LYMPHOCYTE# 3.3 X10e3 (1.0-3.5); LYMPHOCYTE% 27.1 % (17.0-45.0); MEAN CELL VOLUME 81.6 FL (83-96); MEAN CORPUSCULAR HEMOGLOBIN 24.8 PG (28-34); MEAN CORPUSCULAR HGB CONC 30.4 g/dL (30-36); MONOCYTE% 7.8 % (3.0-12.0); NEUTROPHIL# 7.6 X10e3 (1.5-7.1); NEUTROPHIL% 62.5 % (40-75); PLATELET COUNT 317 X10e3 (140-420); RED BLOOD COUNT 3.57 X10e (3.90-5.30); RED CELL DISTRIBUTION WIDTH 21.5 % (11.0-15.5); WHITE BLOOD COUNT 12.2 X10e3 (4.0-10.5)
[2016-07-24 21:48] LABS: DIFF IND NO
[2016-07-24 22:01] LABS: CALCIUM SERUM 6.7 mg/dL (8.4-10.2)
[2016-07-24 22:02] LABS: POTASSIUM 2.2 mmol/L (3.5-5.1)
[2016-07-24 22:05] LABS: BUN/CREATININE RATIO 13.8; CREATININE SERUM 2.1 mg/dL (0.6-1.4); GLOM FILT RATE Estimated 28.5 mL/min (>60)
[2016-07-24 22:18] LABS: INR 1.1; PARTIAL THROMBOPLASTIN TIME 28.7 SECONDS (23.5-31.3); PROTHROMBIN TIME (PATIENT) 11.4 SECONDS (9.6-11.5)
[2016-07-24 22:43] LABS: POC - CKMB 1.7 ng/mL (0.0-7.9); POC - TROPONIN <0.05 ng/mL (<=0.05)
== END 2016-07-25 | disposition home or self-care (01) ==
LOC: CED 19:06
PROVIDERS: Emergency Medicine
DX: E87.5 Hyperkalemia (principal); R06.00 Dyspnea, unspecified; I13.0 Hypertensive heart and chronic kidney disease with heart failure and stage 1 through stage 4 chronic kidney disease, or unspecified chronic kidney disease; E11.22 Type 2 diabetes mellitus with diabetic chronic kidney disease; N18.9 Chronic kidney disease, unspecified; D63.1 Anemia in chronic kidney disease; I25.10 Atherosclerotic heart disease of native coronary artery without angina pectoris; I25.2 Old myocardial infarction; J44.9 Chronic obstructive pulmonary disease, unspecified; F17.200 Nicotine dependence, unspecified, uncomplicated; Z91.19 Patient's noncompliance with other medical treatment and regimen; Z85.118 Personal history of other malignant neoplasm of bronchus and lung
CPT/HCPCS: 36415; 71010; 73610; 73620; 80048; 82553; 83880; 84484; 85025; 85379; 85610; 85730; 93005; 99285

== ENCOUNTER 2016-08-04 16:36 | Emergency (ER) | payer OTHER ==
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
== END 2016-08-04 19:20 | disposition home or self-care (01) ==
LOC: CED 16:36
DX: Z04.1 Encounter for examination and observation following transport accident (principal); J44.9 Chronic obstructive pulmonary disease, unspecified; F32.9 Major depressive disorder, single episode, unspecified; E11.9 Type 2 diabetes mellitus without complications; F17.200 Nicotine dependence, unspecified, uncomplicated
CPT/HCPCS: 70450; 99284

== ENCOUNTER 2016-08-09 07:19 | Inpatient (IN) | payer OTHER ==
[~2016-08-09] VITALS: Ht 152.4 cm; Wt 79.4 kg
--- NOTE | ~2016-08-09 | CR72 ---
[facility] A Service of [facility] & [facility] RADIOLOGY TEXT RESULTS PATIENT: JULIO JIMENEZ LOCATION: [place] [id number] : [birth year] UNIT #: [id number] AGE: [address]: Maxim Melissa MD SEX: F ORDER DR: [id number] [facility] [address] [place], [place] [address] [id number] I MR#: [id number] Acc #: [id number] NAME: JULIO JIMENEZ : 1955 SEX: F STUDY DATE/TIME: 08/14/2016 5:38 UNIT: [facility] ROOM: [facility] STUDY DESCRIPTION: CR Chest Single View Portable Attending Physician: Maxim Melissa M.D. Ordering Physician: Maxim Melissa M.D. Primary Care Physician: Liv Richardson M.D. MEDICAL IMAGING REPORT This report is preliminary unless electronic signature is present EXAM Portable chest. HISTORY Respiratory failure. Patient on a ventilator. History of left lobe lobectomy for lung cancer. COMPARISON 08/13/2016 FINDINGS Tubes and lines remain in satisfactory position unchanged. The endotracheal tube is about 5.5 cm above the frantz in satisfactory position. Continued bibasilar atelectasis or infiltrates with probable small bilateral effusions. Stable cardiomegaly. Postsurgical change noted in the left from prior lobectomy. No pneumothorax. Dictated by... Mack León M.D. THIS IS AN ELECTRONICALLY VERIFIED REPORT Mack León M.D. at 08/15/2016 12:28 PM Franko TD: 08/14/2016 21:30 JOB #: [id number] MEDICAL IMAGING REPORT Page 1 of 1 COPY
--- NOTE | ~2016-08-09 | OR ---
Unit #: [id number] #: [id number] Patient: JULIO JIMENEZ [id number] [address] [address] [id number] I MR#: [id number] NAME: JULIO JIMENEZ ROOM: [facility] Date of Procedure: Admission Date: 08/09/2016 Surgeon: Cameron Mcneill M.D. : 1955 Attending Physician: Maxim Melissa M.D. Primary Care Physician: Liv Richardson M.D. PROCEDURE OPERATIVE NOTE PROCEDURE PERFORMED Diagnostic bronchoscopy. INDICATION Pneumonia. PRE-PROCEDURE DIAGNOSIS Pneumonia. POST PROCEDURE DIAGNOSIS Pneumonia. DETAILS OF THE PROCEDURE After taking consent from the patient's family explaining risks and benefits, the patient was placed in a proper position. Bronchoscope introduced through the endotracheal tube which was sitting well above the frantz. We examined right upper, right middle, right lower lobe, left upper lobe, left lower lobe and there were thick, mucoid secretions in both lungs which were therapeutically suctioned. Then, we did a bronchoalveolar lavage in the left lower lobe area with 100 mL saline and 40 mL back. The patient tolerated the procedure very well. No complications happened. Dictated by... Rukhsana Conti/crystal TD: 08/13/2016 12:56 JOB #: [id number] Unit #: [id number] #: [id number] Patient: JULIO JIMENEZ PROCEDURE OPERATIVE NOTE Page 1 of 1 X Cameron Mcneill MD X PROCEDURE OPERATIVE NOTE
--- NOTE | ~2016-08-09 | A ---
[facility] Therapy DATE: 08/13/16 Patient: JULIO JIMENEZ Physician: JAYDA Address: [address] [address] Room/Bed: [address], Zip: [place] [address] Admit Date: 08/09/16 Date of : [birth year] Height: 5 0 Weight: 217 98.5 NUTRITIONAL ASSESSMENT: REASON: CONSULT RE: ENTERAL NUTRITION SUPPORT ASSESSMENT PT IS 61 Y.O. FEMALE ADMITTED FOR CHF, ACUTE CKD PMH: CAD, COPD, LUNG CA S/P LOBECTOMY, DEMENTIA, HTN, HLD, CKD STAGE 3, CHF, SEIZURE DISORDER, PANCREATITIS, NARESH, TIA, SCHIZOPHRENIA, HX OF CHOLY, DM Anthropometrics: 5'0", WT: 205# (93 KG), BMI: 40.0 -WEIGHTS HAVE RANGED 180-231# SINCE ADMIT. RD CALCULATED AVERAGE WEIGHT Labs: GLU: 255, BUN: 31, CREAT: 2.7, CA+:7.4, ALB: 2.1, ALT: 8, PHOS: 4.9, LIPASE: 16, GFR: 20.9 Meds: VERSED, NOVOLOG, SOLU-MEDROL, NACL, PROTONIX, COLACE, ZOFRAN, KCL, IV LEVAQUIN I/O & Bowel function: 1728/1815 Skin Integrity: BLE 2+ EDEMA; BUE 2+ EDEMA Estimated Nutrition Needs: [id number] KCAL (15-20 KCAL/KG BW) 68-91 G PRO (1.5-2.0 G PRO/KG IBW) FLUIDS CONSISTENT W/KCAL NEEDS OR MANAGE PER MD Assessment: CHART REVIEWED AND EVENTS NOTED. PT SEEN FOR ENTERAL NUTRITION SUPPORT CONSULT. PT INTUBATED AND SEDATED AT TIME OF VISIT. NO FAMILY IN ROOM AT THIS TIME. PLANS FOR BRONCHOSCOPY THIS AM. PT HAS DHT, PLANS TO BEGIN ALTERNATIVE NUTRITION SUPPORT PER RD RECOMMENDATIONS LATER TODAY. PT NOT APPROPRIATE FOR DIET EDUCATION AT THIS TIME. RD TO FOLLOW. SEE RECOMMENDATIONS BELOW. OF NOTE, PT WAS RECEIVING CC+HH+ FLUID RESTRICTION DIET PRIOR TO ICU ADMIT. Dx: INADEQUATE ORAL INTAKE R/T CURRENT DIAGNOSIS, VENT DEPENDENCE AEB NPO STATUS. Intervention: 1. RD CONSULT 2. NPO Monitoring, Evaluation and Goals: 1. ENTERAL NUTRITION; ONCE INITIATED, PROVIDE >80% TOTAL VOLUME AT GOAL 2. WEIGHTS; PROMOTE GRADUAL WEIGHT LOSS TOWARDS HEALTHY BMI 3. LABS; WNL 4. GI; PROMOTE REGULAR GI FUNCTION [facility] DATE: 08/13/16 Patient: JULIO JIMENEZ Physician: JAYDA Address: [address] Room/Bed: [address], Zip: [place] [address] Admit Date: 08/09/16 Date of : [birth year] Height: 5 0 Weight: 217 98.5 MONITOR: -TF RATE/RESIDUALS -WEIGHTS -LABS -EXTUBATION? Recommendations: 1. REPLACE ELECTROLYTES TO WNL (PHOS, K+) 2. ONCE MEDICALLY FEASIBLE, BEGIN ALTERNATIVE NUTRITION SUPPORT OF GLUCERNA 1.5 @ 20 ML/HR, ADVANCE 10 ML q 6 HOURS TO GOAL RATE OF 45 ML/HR -PROVIDES 1620 KCAL, 89 G PRO, 821 ML FREE H20 ADD FREE H20 FLUSHES PER MD 3. ONCE PT EXTUBATED, ADVANCE DIET PER DATA COLLECTOR + CC+HH DIET 2'PMH RD WILL F/U PER PROTOCOL PT IS SEVERELY COMPROMISED Respectfully, MARGIE LUNA MS, RD, LD [employer] [facility] [employer] cc: client file
--- NOTE | ~2016-08-09 | EKG ---
PATIENT: JULIO JIMENEZ UNIT #: [id number] Ventricular Rate: 63 BPM Atrial Rate: 63 BPM P-R Interval: 176 ms QRS Duration: 96 ms Q-T Interval: 468 ms QTC Calculation(Bezet): 478 ms P [place]: 68 degrees Calculated R [place]: 48 degrees Calculated T [place]: 58 degrees Diagnosis Line: Normal sinus rhythm Diagnosis Line: Cannot rule out Inferior infarct , age Diagnosis Line: undetermined Diagnosis Line: Abnormal ECG Diagnosis Line: When compared with ECG of 24-JUL-2016 21:42, Diagnosis Line: No significant change was found Diagnosis Line: Confirmed by JAQUI STRATTON MD ([id number]) on 08/09/2016 Diagnosis Line: 8:37:44 PM INTERPRETING MD: CHAYITO ALANIZ
--- NOTE | ~2016-08-09 | EKG ---
PATIENT: JULIO JIMENEZ UNIT #: [id number] Ventricular Rate: 63 BPM Atrial Rate: 63 BPM P-R Interval: 194 ms QRS Duration: 84 ms Q-T Interval: 480 ms QTC Calculation(Bezet): 491 ms P [place]: 63 degrees Calculated R [place]: 63 degrees Calculated T [place]: 35 degrees Diagnosis Line: Normal sinus rhythm Diagnosis Line: Nonspecific T wave abnormality Diagnosis Line: Prolonged QT Diagnosis Line: Abnormal ECG Diagnosis Line: When compared with ECG of 09-AUG-2016 07:51, Diagnosis Line: No significant change was found Diagnosis Line: Confirmed by JAQUI STRATTON MD ([id number]) on 08/15/2016 Diagnosis Line: 2:45:18 PM INTERPRETING MD: CHAYITO ALANIZ
--- NOTE | ~2016-08-09 | CR72 ---
[facility] A Service of [facility] & [facility] RADIOLOGY TEXT RESULTS PATIENT: JULIO JIMENEZ LOCATION: [facility] - : 51 UNIT #: [id number] AGE: [address]: Maxim Melissa MD SEX: F ORDER DR: [id number] [facility] [address] [place], [place] [address] [id number] I MR#: [id number] Acc #: [id number] NAME: JULIO JIMENEZ : 1955 SEX: F STUDY DATE/TIME: 08/24/2016 9:27 UNIT: [address] ROOM: [facility] STUDY DESCRIPTION: CR Chest Single View Portable Attending Physician: Maxim Melissa M.D. Ordering Physician: Maxim Melissa M.D. Primary Care Physician: Liv Richardson M.D. MEDICAL IMAGING REPORT This report is preliminary unless electronic signature is present EXAM Portable chest 08/24/2016 HISTORY Increased wheezing on physical examination today. COMPARISON STUDIES 08/22/2016. FINDINGS The nasogastric tube has been advanced below the diaphragm but the tip is not visualized. There has been no other change in the position of the life support equipment. Stable cardiac enlargement. Right pleural effusion layering posteriorly with bibasilar infiltrates or atelectasis. Dictated by... Danish Johnston M.D. THIS IS AN ELECTRONICALLY VERIFIED REPORT Danish Johnston M.D. at 08/27/2016 10:15 AM KRT/juana TD: 08/24/2016 22:08 JOB #: [id number] MEDICAL IMAGING REPORT Page 1 of 1 COPY
--- NOTE | ~2016-08-09 | CT57 ---
[facility] A Service of [facility] & [facility] RADIOLOGY TEXT RESULTS PATIENT: JULIO JIMENEZ LOCATION: [address] : [birth year] UNIT #: [id number] AGE: [address]: Maxim Melissa MD SEX: F ORDER DR: [id number] [facility] [address] [place], [place] [address] [id number] I MR#: [id number] Acc #: [id number] NAME: JULIO JIMENEZ : 1955 SEX: F STUDY DATE/TIME: 08/11/2016 19:17 UNIT: [facility] ROOM: [facility] STUDY DESCRIPTION: CT Chest Wo Cont Attending Physician: Maxim Melissa M.D. Ordering Physician: Jose Roberto Flores M.D. Primary Care Physician: Liv Richardson M.D. MEDICAL IMAGING REPORT This report is preliminary unless electronic signature is present EXAM CT chest without contrast. HISTORY Shortness of air and cough for 4 days. Pneumonia. TECHNIQUE This CT exam was performed with one or more of the following radiation dose reduction techniques: automatic exposure control, adjustment of mA and/or kV according to patient size, and iterative reconstruction. FINDINGS CT chest without contrast demonstrates nearly complete atelectasis of the left lower lobe with probable superimposed airspace infiltrate. Moderate atelectasis in the posterior right lower lobe. Additional mild subsegmental atelectasis in the medial right middle lobe. Mild precarinal adenopathy measures 1.3 cm, and is stable compared to 11/23/2014 CT. Mild dilatation of the central pulmonary arteries, also stable. Small bilateral pleural effusions. IMPRESSION 1. Extensive atelectasis of nearly the entire left lower lobe with probable superimposed airspace infiltrate. There is also moderate atelectasis or infiltrate in the posterior right lower lobe and mild subsegmental atelectasis or infiltrate in the medial right middle lobe. 2. Very small bilateral pleural effusions. 3. Mild precarinal adenopathy is stable compared to 11/23/2014 CT. 4. Stable mild dilatation of the central pulmonary arteries. Dictated by... [facility] A Service of [facility] & [facility] RADIOLOGY TEXT RESULTS PATIENT: JULIO JIMENEZ LOCATION: [address] : [birth year] UNIT #: [id number] AGE: [address]: Maxim Melissa MD SEX: F ORDER DR: Wilmer Rees M.D. THIS IS AN ELECTRONICALLY VERIFIED REPORT Wilmer Rees M.D. at 08/12/2016 10:37 PM RAJENDRA/logan TD: 08/12/2016 03:46 JOB #: [id number] MEDICAL IMAGING REPORT Page 1 of 1 COPY
--- NOTE | ~2016-08-09 | CO ---
Unit #: [id number] #: [id number] Patient: JULIO JIMENEZ [id number] [address] [place], [place] [address] [id number] I MR#: [id number] NAME: JULIO JIMENEZ ROOM: [facility] Age: 61 Sex: F Admission Date: 08/09/2016 : 1955 Attending Physician: Maxim Melissa M.D. Primary Care Physician: Liv Richardson M.D. Consultation Date: 08/11/2016 CONSULTATION REPORT REASON FOR CONSULTATION Critical care management, respiratory failure. This patient basically is a 61-year-old female with a past medical history of extensive COPD and mediastinal lymphadenopathy, previous history of lung cancer and extensive smoker, who has been admitted with impression of respiratory failure and congestive heart failure with exacerbation and COPD. Became acutely short of breath and hypoxic and transferred to ICU. I have intubated the patient because of respiratory failure. This was a difficult intubation but was done in the first attempt with Eschmann catheter help. She is currently on the ventilator. PAST MEDICAL HISTORY 1. Congestive heart failure. 2. Hypertension. 3. Transient ischemic attack. 4. COPD. 5. Tobacco use. 6. Insulin. 7. Schizoaffective disorder. 8. Myocardial infarction. 9. Lung cancer. 10. Anxiety/depression. 11. Dementia. 12. Pancreatitis. 13. Hysterectomy. 14. Thyroidectomy. 15. Left foot surgery. 16. Cholecystectomy. 17. Bilateral cataract surgery. ALLERGIES No known drug allergies. MEDICATIONS As per MAR, has been reviewed. SOCIAL HISTORY Smoker, one pack per day. No alcohol or drug abuse. PHYSICAL EXAMINATION GENERAL: Currently intubated and sedated. CVS: S1+ S2. RESPIRATIONS: Bilateral air entry, bilateral mild rhonchi. Unit #: [id number] #: [id number] Patient: JULIO JIMENEZ GI: Nontender, soft. Bowel sounds positive. EXTREMITIES: Positive edema. ASSESSMENT AND PLAN 1. Acute exacerbation of chronic obstructive pulmonary disease. 2. Acute bronchitis. 3. Pneumonia. 4. Congestive heart failure with exacerbation. 5. Acute renal failure. 6. Type 2 diabetes. 7. Hypertension. 8. History of lung cancer. 9. Obstructive sleep apnea. 10. Mediastinal lymphadenopathy. Plan is to start patient on IV steroids, start on IV antibiotic. Diuretics as per nephrology. Continue ventilator support. GI and DVT prophylaxis. Will consider bronchoscopy. Noncontrast CT of the chest ordered. Procalcitonin level. Please see orders for detailed plan. Total critical care time was 75 minutes in direct critical care of this patient. Dictated by... Rukhsana Conti/crystal TD: 08/13/2016 06:04 JOB #: [id number] CONSULTATION REPORT Page 1 of 1 X Cameron Mcneill MD X CONSULTATION REPORT
--- NOTE | ~2016-08-09 | CR72 ---
[facility] A Service of [facility] RADIOLOGY TEXT RESULTS PATIENT: JULIO JIMENEZ LOCATION: [facility] : 51 UNIT #: [id number] AGE: [address]: Maxim Melissa MD SEX: F ORDER DR: [id number] [facility] [address] [facility]. [place], [place] [address] [id number] I MR#: [id number] Acc #: [id number] NAME: JULIO JIMENEZ : 1955 SEX: F STUDY DATE/TIME: 08/09/2016 8:04 UNIT: CEDOF ROOM: [facility] STUDY DESCRIPTION: CR Chest Single View Portable Attending Physician: Maxim Melissa M.D. Ordering Physician: Jose Roberto Flores M.D. Primary Care Physician: Liv Richardson M.D. MEDICAL IMAGING REPORT This report is preliminary unless electronic signature is present EXAM Portable chest. HISTORY Shortness of breath, cough, and congestion for the past 2 days. Previous history of lung cancer. TECHNIQUE Single AP view chest was obtained and compared with 07/24/2016. FINDINGS Cardiomegaly is seen. It shows no change from the previous exam. There is extensive volume loss at the left lung base with postoperative changes at the left hilum. In the right lung, there is increased pulmonary vascularity compared to the previous exam. No pleural fluid is seen. IMPRESSION Mild vascular congestion, new since the previous examination. Stable postoperative changes on the left. Stable cardiomegaly. Findings are consistent with congestive heart failure or fluid overload. Dictated by... Antonio Rivas M.D. THIS IS AN ELECTRONICALLY VERIFIED REPORT Antonio Rivas M.D. at 08/09/2016 3:43 PM RLF/logan TD: 08/09/2016 12:08 JOB #: [id number] [facility] A Service of [facility] RADIOLOGY TEXT RESULTS PATIENT: BARBARA,JULIO LOCATION: [facility] : 51 UNIT #: [id number] AGE: [address]: Maxim Melissa MD SEX: F ORDER DR: MEDICAL IMAGING REPORT Page 1 of 1 COPY
--- NOTE | ~2016-08-09 | CO ---
Unit #: [id number] #: [id number] Patient: JULIO JIMENEZ [id number] [address] [place], [place] [address] [id number] MR#: [id number] NAME: JULIO JIMENEZ ROOM: [facility] Age: 61 Sex: F Admission Date: 08/09/2016 : 1955 Attending Physician: Maxim Melissa M.D. Primary Care Physician: Liv Richardson M.D. CONSULTATION REPORT REASON FOR CONSULTATION Low urine output, acute renal failure. HISTORY OF PRESENT ILLNESS Patient is a 61-year-old female with significant past medical history of chronic kidney disease stage 3, COPD, hypertension, hyperlipidemia, congestive heart failure, a history of left lung cancer, status post lobectomy, mainly admitted to the hospital because of not feeling well. She was on Entresto for her congestive heart failure and when she was admitted she was found to have very high blood pressure, also found to be short of breath. She was intubated. Her oxygen saturation was anywhere between 93% to 95%. Her BNP level was elevated. Diuretics were given but her urine output significantly dropped in the last few hours. Her Entresto that she was taking at home was stopped after being admitted to the hospital. She is also on Bumex at 2 mg IV q.12 h. She is intubated at this time, unable to get any history from the patient. Although she was on Bumex she has significant edema but her creatinine keeps increasing. Her urine output is significantly low. Her echocardiogram is still pending. PAST MEDICAL HISTORY Past medical history is significant for congestive heart failure, hypertension, history of TIA, COPD, history of type 2 diabetes, coronary artery disease with [place] in ', history of lung cancer, dementia and pancreatitis. PAST SURGICAL HISTORY Hysterectomy, thyroidectomy, umbilical hernia repair, ankle repair, cholecystectomy, cataract surgery. SOCIAL HISTORY She is a smoker, still smokes about one pack a day as per record. FAMILY HISTORY Noncontributory. MEDICATION Medications are reviewed. They did include at the time of admission, also omeprazole, Remeron, Humalog, hydrocodone, Mucinex, gabapentin. PHYSICAL EXAMINATION GENERAL: On examination the patient is a middle-aged female not in any Unit #: [id number] #: [id number] Patient: JULIO JIMENEZ acute distress. VITAL SIGNS: Last blood pressure was 170/95, pulse is 80, temperature is 98, respiratory rate is 18, oxygen saturation is about 98% on 60% FIO2. HEAD/NECK EXAMINATION: Pupils are reactive to light. Extraocular movement is intact. Redness of the left eye. Neck is supple. No JVD. No palpable lymph node in the neck. CHEST: Patient has decreased air entry at the bases, otherwise no crackle. HEART: Heart is regular rate and rhythm. No murmur. No gallop. ABDOMEN: Abdomen is soft, nontender. EXTREMITIES: 2+ edema of the lower extremities. NEUROLOGICAL: Grossly nonfocal. DIAGNOSTIC STUDIES LABORATORY: Labs showed the patient's creatinine has increased to 2.6 since yesterday with sodium of 140, potassium 4.5, bicarb 24, pH is 7.47, calcium level is 7, phosphorus 4.1, magnesium 2.3, albumin is only 1.4, BNP level is greater than 5000, iron saturation was 12%. ASSESSMENT AND PLAN 1. Acute renal failure: A likely cause of acute renal failure is ATN but with the presence of significant edema and respiratory failure I will avoid any IV fluid. I will start patient on Bumex drip at this time because BNP level keeps increasing and patient has significant edema and some increased pulmonary congestion, too. Will follow up with the repeat labs at 6:00 p.m. and will follow the labs closely. 2. Congestive heart failure: Last ejection fraction 30% to 35%. Repeat echo is still pending. Will follow up the result. 3. Hypertension: Cardiology already changed antihypertensive medicine. Will follow up closely. No need for extra IV fluid to improve the patient's hemodynamic status. 4. Hypocalcemia: I will follow up ionized calcium. 5. Anemia with hemoglobin level of 10.4. Thank you for letting me participate in taking care of this patient. At this time Bumex drip will be started. Will follow up with the repeat labs and follow with the patient's condition closely. Dictated by... Rukhsana Morrissey TD: 08/12/2016 21:15 JOB #: [id number] CONSULTATION REPORT Page 1 of 1 X Daniele Yang MD CONSULTATION REPORT
--- NOTE | ~2016-08-09 | CR7 ---
[facility] A Service of [facility] & [facility] RADIOLOGY TEXT RESULTS PATIENT: JULIO JIMENEZ LOCATION: [address] : [birth year] UNIT #: [id number] AGE: [address]: Maxim Melissa MD SEX: F ORDER DR: [id number] [facility] [address] [facility] [place], [place] [address] [id number] I MR#: [id number] Acc #: [id number] NAME: JULIO JIMENEZ : 1955 SEX: F STUDY DATE/TIME: 08/11/2016 14:23 UNIT: [facility] ROOM: [facility] STUDY DESCRIPTION: CR Abdomen Single AP View Attending Physician: Maxim Melissa M.D. Ordering Physician: Maxim Melissa M.D. Primary Care Physician: Liv Richardson M.D. MEDICAL IMAGING REPORT This report is preliminary unless electronic signature is present EXAM Portable abdomen. HISTORY Dobbhoff tube placement. FINDINGS Feeding tube is curled in the stomach with its tip in the proximal gastric body, approximately 25 cm beyond the EG junction. Mild gaseous distension of small bowel in the left abdomen measuring just over 3 cm could be secondary to mild ileus. Remainder of the visualized bowel gas pattern is unremarkable. The exam does not include the left lateral abdomen. Dictated by... Wilmer Rees M.D. THIS IS AN ELECTRONICALLY VERIFIED REPORT Wilmer Rees M.D. at 08/12/2016 10:34 PM RAJENDRA/jimmy TD: 08/11/2016 23:36 JOB #: [id number] MEDICAL IMAGING REPORT Page 1 of 1 COPY
--- NOTE | ~2016-08-09 | FU ---
[facility] Nutrition Therapy DATE: 08/20/16 Patient: JULIO JIMENEZ Physician: JAYDA Address: [address] [place] [address] Room/Bed: [address], Zip: [place] [address] Admit Date: 08/09/16 Date of : [birth year] Height: 5 0 Weight: 244 111 NUTRITION MONITORING/FOLLOW-UP: Reason: PT SEEN FOR FOLLOW-UP/ENTERAL NUTRITION SUPPORT DX: CHF, CKD Anthropometrics: 5'0", WT: 244# (111 KG), BMI: 47.6 -WEIGHTS HAVE RANGED 180-244# SINCE ADMIT- FLUID RETENTION NOTED Labs: GLU: 154, BUN: 69, CREAT: 2.6, CA+:7.1, ALB: 1.7, PHOS: 5.8, GFR: 21.9, NA+:130 Meds: FENTANYL, LEVEMIR, MIRALAX, PROTONIX, NOVOLOG, SOLU-MEDROL, ZOFRAN, PROPOFOL, VITAMIN D I&O's: 2468/1839, 1 BM NOTED Skin: BUE 3+ EDEMA; TRUNK 4+ EDEMA; BLE 3+ EDEMA Estimated Nutrition Needs: 2199-0477 KCAL 68-91 G PRO Assessment: GRIFFIN REVIEWED AND EVENTS NOTED. PT SEEN FOR ENTERAL NUTRITION SUPPORT FOLLOW-UP. PT CONTINUES TO BE INTUBATED AT TIME OF VISIT. PT NOT RECEIVING PROPOFOL AT RATE OF 17.8 ML/HR PROVIDING ~470 KCAL FROM LIPIDS. PT ALSO RECEIVING ALTERNATIVE NUTRITION SUPPORT OF GLUCERNA 1.5 @ 45 ML/HR. PER RN AND CHART, PT TOLERATING EN, NOTING NO ISSUES. PER PUMP HISTORY, PT RECEIVING ~82% TOTAL VOLUME X 24 HOURS. NO FAMILY IN ROOM AT THIS TIME. OF NOTE, PT RECEIVING HD. RD TO CHANGE CURRENT ENTERAL NUTRITION SUPPORT 2' DECREASED RENAL FUNCTION (PT ON HD, ELEVATED K+ AND PHOS). RD TO CONTINUE TO FOLLOW. Dx: INADEQUATE ORAL INTAKE R/T CURRENT DIAGNOSIS, VENT DEPENDENCE AEB PT RECEIVING ALTERNATIVE NUTRITION SUPPORT.-ACTIVE Intervention: 1. ENTERAL NUTRITION SUPPORT OF GLUCERNA 1.5 2. CHANGE ENTERAL NUTRITION SUPPORT TO NEPRO Monitoring, Evaluation and Goals: 1. ENTERAL NUTRITION; PROVIDE >80% TOTAL VOLUME X 24 HOURS-NOT MET 2. WEIGHTS; PROMOTE WEIGHT LOSS-NOT MET; (FLUID RETENTION NOTED, EDEMA) 3. LABS; WNL-NOT MET 4. GI; PROMOTE REGULAR GI FUNCTION-NOT MET/IN PROGRESS MONITOR: -TF RATE/RESIDUALS/CHANGE [facility] Nutrition Therapy DATE: 08/20/16 Patient: JULIO JIMENEZ Physician: JAYDA Address: [address] [facility] Room/Bed: [address], Zip: [place] [address] Admit Date: 08/09/16 Date of : [birth year] Height: 5 0 Weight: 244 111 -WEIGHTS -LABS -SEDATION RATE Recommendations: 1. RECOMMEND TO CHANGE CURRENT ENTERAL NUTRITION SUPPORT TO NEPRO @ 20 ML/HR, ADVANCE 10 ML q 4 HOURS TO GOAL RATE OF 25 ML/HR + SEDATION + SUGAR-FREE PROSTAT TID -TOTAL PROVIDES 1850 KCAL, 94 G PRO, 438 ML FREE H20 ADD FREE H20 FLUSHES PER MD 2. ONCE PROPOFOL D/C'D, RECOMMEND NEPRO @ GOAL RATE OF 40 ML/HR + SUGAR-FREE PROSTAT ONCE DAILY -PROVIDES 1828 KCAL, 93 G PRO, 701 ML FREE H20 ADD FREE H20 FLUSHES PER MD 3. CONTINUE TO MONITOR LYTES-DECREASED RENAL FUNCTION NOTED 4. ONCE PT EXTUBATED, ADVANCE DIET PER SPECIAL ED ASSISTANT EVAL + CC/HH DIET RD WILL F/U PER PROTOCOL PT IS SEVERELY COMPROMISED Respectfully, MARGIE LUNA MS, RD, LD [facility] cc: client file
--- NOTE | ~2016-08-09 | CR68 ---
[facility] A Service of [facility] RADIOLOGY TEXT RESULTS PATIENT: JULIO JIMENEZ LOCATION: CICCU2 CICCU03-25 : 51 UNIT #: [id number] AGE: [address]: Maxim Melissa MD SEX: F ORDER DR: [id number] [facility] [address] [facility]. [place], [place] [address] [id number] I MR#: [id number] Acc #: [id number] NAME: JULIO JIMENEZ : 1955 SEX: F STUDY DATE/TIME: 08/10/2016 0:04 UNIT: C3A PCU ROOM: 320 STUDY DESCRIPTION: CR Chest Decubitus Only Lt Attending Physician: Maxim Melissa M.D. Ordering Physician: Abhishek Livingston M.D. Primary Care Physician: Liv Richardson M.D. MEDICAL IMAGING REPORT This report is preliminary unless electronic signature is present EXAM Right and left lateral decubitus views of the chest INDICATIONS Cough, chest congestion, and shortness of air for the past 2 days. PROCEDURE Right and left lateral decubitus views of the chest. COMPARISON 08/09/2016 FINDINGS Overlying soft tissue makes evaluation of the left lung difficult on the left lateral decubitus view. There may be a small amount of layering fluid. No evidence for layering right effusion. IMPRESSION Possible small layering left effusion, but evaluation is difficult secondary to overlying soft tissue. Dictated by... Keon Simon M.D. THIS IS AN ELECTRONICALLY VERIFIED REPORT Keon Simon M.D. at 08/15/2016 2:58 PM CRISTIANO/alberto TD: 08/10/2016 13:01 JOB #: [id number] MEDICAL IMAGING REPORT [facility] A Service of [facility] & [facility] RADIOLOGY TEXT RESULTS PATIENT: JULIO JIMENEZ LOCATION: CICAle CIC03-25 : 51 UNIT #: [id number] AGE: [address]: Maxim Melissa MD SEX: F ORDER DR: Page 1 of 1 COPY
--- NOTE | ~2016-08-09 | EKG ---
PATIENT: JULIO JIMENEZ UNIT #: [id number] Ventricular Rate: 91 BPM Atrial Rate: 91 BPM P-R Interval: 202 ms QRS Duration: 82 ms Q-T Interval: 390 ms QTC Calculation(Bezet): 479 ms P [place]: 49 degrees Calculated R [place]: 52 degrees Calculated T [place]: 74 degrees Diagnosis Line: Normal sinus rhythm Diagnosis Line: Low voltage QRS Diagnosis Line: Borderline ECG Diagnosis Line: When compared with ECG of 11-AUG-2016 06:32, Diagnosis Line: (unconfirmed) Diagnosis Line: Nonspecific T wave abnormality no longer evident Diagnosis Line: in Inferior leads Diagnosis Line: Nonspecific T wave abnormality no longer evident Diagnosis Line: in Lateral leads Diagnosis Line: Confirmed by DONNELL THORNTON MD ([id number]) on Diagnosis Line: 08/13/2016 11:05:42 AM INTERPRETING MD: HILLARY ALANIZ
--- NOTE | ~2016-08-09 | FU ---
[facility] Nutrition Therapy DATE: 08/16/16 Patient: JULIO JIMENEZ Physician: JAYDA Address: [address] [facility] Room/Bed: [address], Zip: [place] [address] Admit Date: 08/09/16 Date of : [birth year] Height: 5 0 Weight: 252 114.5 NUTRITION MONITORING/FOLLOW-UP: Reason: PT SEEN FOR FOLLOW-UP/ENTERAL NUTRITION SUPPORT DX: CHF, CKD Anthropometrics: 5'0", WT: 218# (99 KG), BMI: 42.6 -WEIGHTS HAVE RANGED 180-231# SINCE ADMIT Labs: GLU: 136, BUN: 61, CREAT: 2.6, CA+: 7.5, ALB: 1.9, GFR: 21.9 Meds: FENTANYL, LEVEMIR, VERSED, MIRALAX, PROTONIX, NOVOLOG, SOLU-MEDROL, ZOFRAN I&O's: 1777/920 Skin: BUE 4+ EDEMA; TRUNK 4+ EDEMA Estimated Nutrition Needs: 8343-2275 KCAL 68-91 G PRO Assessment: CHART REVIEWED AND EVENTS NOTED. PT SEEN FOR ENTERAL NUTRITION SUPPORT FOLLOW-P. PT CONTINUES TO BE INTUBATED AND SEDATED RECEIVING ALTERNATIVE NUTRITION SUPPORT OF GLUCERNA 1.5 @ 45 ML/HR. PER RN AND CHART, PT TOLERATING EN, NOTING NO ISSUES. PER PUMP HISTORY, PT RECEIVING ~99% TOTAL VOLUME X 24 HOURS. NO FAMILY IN ROOM AT THIS TIME. RD TO CONTINUE TO FOLLOW. Dx: INADEQUATE ORAL INTAKE R/T CURRENT DIAGOSIS, VENT DEPENDENCE AEB NPO STATUS.-RESOLVED/IN PROGRESS NEW Dx: INADEQUATE ORAL INTAKE R/T CURRENT DIAGNOSIS, VENT DEPENDENCE AEB PT RECEIVING ALTERNATIVE NUTRITION SUPPORT IN PLACE. Intervention: 1. ENTERAL NUTRITION Monitoring, Evaluation and Goals: 1. ENTERAL NUTRITION; PROVIDE >80% TOTAL VOLUME X 24 HOURS-MET 2. WEIGHTS; PROMOTE GRADUAL WEIGHT LOSS TOWARDS HEALTHY-NOT MET 3. LABS; WNL-NOT MET 4. GI; PROMOTE REGULAR GI FUNCTION-IN PROGRESS MONITOR: -TF RATE/RESIDUALS -WEIGHTS [facility] Nutrition Therapy DATE: 08/16/16 Patient: JULIO JIMENEZ Physician: JAYDA Address: [address] [facility] Room/Bed: [address], Zip: [place] [address] Admit Date: 08/09/16 Date of : [birth year] Height: 5 0 Weight: 252 114.5 -LABS Recommendations: 1. CONTINUE CURRENT ENTERAL NUTRITION SUPPORT OF GLUCERNA 1.5 @ 45 ML/HR -PROVIDES 1620 KCAL, 89 G PRO, 821 ML FREE H20 CONTINUE FREE H20 FLUSHES PER MD 2'EDEMA, CHF NOTED 2. ONCE PT EXTUBATED, CONSULT PROSTHETIC TECHNICIAN +CC+HH DIET 2'PMH RD WILL F/U PER PROTOCOL PT IS SEVERELY COMPROMISED Respectfully, MARGIE LUNA MS, RD, LD Food and Nutritional [facility] cc: client file
--- NOTE | ~2016-08-09 | XA203 ---
[facility] A Service of [facility] RADIOLOGY TEXT RESULTS PATIENT: JULIO JIMENEZ LOCATION: [place] [address]-12 : 53 UNIT #: [id number] AGE: [address]: Maxim Melissa MD SEX: F ORDER DR: [id number] [place] [address] [place], [place] [address] [id number] I MR#: [id number] Acc #: [id number] NAME: JULIO JIMENEZ : 1955 SEX: F STUDY DATE/TIME: 08/10/2016 8:50 UNIT: [facility] ROOM: [facility] STUDY DESCRIPTION: XA Thoracentesis Attending Physician: Maxim Melissa M.D. Ordering Physician: Maxim Melissa M.D. Primary Care Physician: Liv Richardson M.D. MEDICAL IMAGING REPORT This report is preliminary unless electronic signature is present EXAM Ultrasound of the left hemithorax INDICATIONS Left pleural effusion seen on x-ray FINDINGS Preliminary ultrasound of the left hemithorax was performed which demonstrated insufficient volume of fluid for safe thoracentesis; at this time, procedure was subsequently terminated. IMPRESSION Insufficient volume of fluid for safe thoracentesis at this time. Dictated by... Mari Magdaleno M.D. THIS IS AN ELECTRONICALLY VERIFIED REPORT Mari Magdaleno M.D. at 08/13/2016 5:21 PM AFF/to TD: 08/13/2016 16:01 JOB #: [id number] MEDICAL IMAGING REPORT Page 1 of 1 COPY
--- NOTE | ~2016-08-09 | CR72 ---
[facility] A Service of [facility] & [facility] RADIOLOGY TEXT RESULTS PATIENT: JULIO JIMENEZ LOCATION: [address] : [birth year] UNIT #: [id number] AGE: [address]: Maxim Melissa MD SEX: F ORDER DR: [id number] [facility] [address] [facility] [place], [place] [address] [id number] I MR#: [id number] Acc #: [id number] NAME: JULIO JIMENEZ : 1955 SEX: F STUDY DATE/TIME: 08/17/2016 5:50 UNIT: [facility] ROOM: [facility] STUDY DESCRIPTION: CR Chest Single View Portable Attending Physician: Maxim Melissa M.D. Ordering Physician: Ha De La Fuente M.D. Primary Care Physician: Liv Richardson M.D. MEDICAL IMAGING REPORT This report is preliminary unless electronic signature is present EXAM Portable chest, 08/17 INDICATION Respiratory failure. Ventilator patient. History of lung cancer. Symptoms for 8 days. FINDINGS AP portable chest is compared with 08/16/2016. ET tube and right IJ line are in good position. Cardiomegaly is stable. There is persistent infiltrate or atelectasis in the bases with small bilateral effusions. Findings at the left base have slightly worsened since yesterday's exam. No pneumothorax is seen. Dictated by... Antonio Becerril Jr., M.D. THIS IS AN ELECTRONICALLY VERIFIED REPORT Antonio Becerril Jr., M.D. at 08/17/2016 4:09 PM YAMILETH/katheryn TD: 08/17/2016 09:29 JOB #: [id number] MEDICAL IMAGING REPORT Page 1 of 1 COPY
--- NOTE | ~2016-08-09 | CR72 ---
[facility] A Service of [facility] & [facility] RADIOLOGY TEXT RESULTS PATIENT: JULIO JIMENEZ LOCATION: [place] [address]12 : 53 UNIT #: [id number] AGE: [address]: Maxim Melissa MD SEX: F ORDER DR: [id number] [facility] [address] [facility]. [place], [place] [address] [id number] I MR#: [id number] Acc #: [id number] NAME: JULIO JIMENEZ : 1955 SEX: F STUDY DATE/TIME: 08/13/2016 4:44 UNIT: [facility] ROOM: [facility] STUDY DESCRIPTION: CR Chest Single View Portable Attending Physician: Maxim Melissa M.D. Ordering Physician: Maxim Melissa M.D. Primary Care Physician: Liv Richardson M.D. MEDICAL IMAGING REPORT This report is preliminary unless electronic signature is present EXAM Portable chest, 08/13. INDICATION Respiratory failure. Ventilator patient. History of lung cancer on the left. FINDINGS AP portable chest compared with 08/12/16. ET tube just below the thoracic inlet about 7 cm above the frantz. Consider advancing the tube 2 to 3 cm. Right IJ line in the SVC. Feeding tube in the stomach. Cardiomegaly stable. There is an infiltrate or atelectasis in the bases and there is a small left effusion. Trace right effusion may be present. Lobectomy changes are noted on the left. No pneumothorax. Dictated by... Antonio Becerril Jr., M.D. THIS IS AN ELECTRONICALLY VERIFIED REPORT Antonio Becerril Jr., M.D. at 08/13/2016 3:48 PM YAMILETH/tricia TD: 08/13/2016 14:00 JOB #: [id number] MEDICAL IMAGING REPORT Page 1 of 1 COPY
--- NOTE | ~2016-08-09 | CR72 ---
[facility] A Service of [facility] RADIOLOGY TEXT RESULTS PATIENT: JULIO JIMENEZ LOCATION: [address] : 53 UNIT #: [id number] AGE: [address]: Maxim Melissa MD SEX: F ORDER DR: [id number] [facility] [address] [facility]. [place], [place] [address] [id number] I MR#: [id number] Acc #: [id number] NAME: JULIO JIMENEZ : 1955 SEX: F STUDY DATE/TIME: 08/21/2016 6:15 UNIT: [facility] ROOM: [facility] STUDY DESCRIPTION: CR Chest Single View Portable Attending Physician: Maxim Melissa M.D. Ordering Physician: Ha De La Fuente M.D. Primary Care Physician: Liv Richardson M.D. MEDICAL IMAGING REPORT This report is preliminary unless electronic signature is present EXAM Portable chest 1-view, 08/21/2016 at 06:15 COMPARISON 08/19/2016 HISTORY Respiratory failure. Symptoms for about 2 weeks. FINDINGS Persistent right mid to lower lung opacity may be infiltrate or atelectasis or could be fluid in the fissure. There is left retrocardiac consolidation also unchanged. Endotracheal tube and right and left IJ central lines and feeding tube remain in place as well. No pneumothorax. Dictated by... Preston Rosa M.D. THIS IS AN ELECTRONICALLY VERIFIED REPORT Preston Rosa M.D. at 08/22/2016 10:24 AM RAMIREZ/katheryn TD: 08/21/2016 14:28 JOB #: [id number] MEDICAL IMAGING REPORT Page 1 of 1 COPY
--- NOTE | ~2016-08-09 | CR7 ---
[facility] A Service of [facility] & [facility] RADIOLOGY TEXT RESULTS PATIENT: JULIO JIMENEZ LOCATION: [address] : 53 UNIT #: [id number] AGE: [address]: Maxim Melissa MD SEX: F ORDER DR: [id number] [facility] [address] [facility]. [place], [place] [address] [id number] I MR#: [id number] Acc #: [id number] NAME: JULIO JIMENEZ : 1955 SEX: F STUDY DATE/TIME: 08/22/2016 15:11 UNIT: [facility] ROOM: [facility] STUDY DESCRIPTION: CR Abdomen Single AP View Attending Physician: Maxim Melissa M.D. Ordering Physician: Maxim Melissa M.D. Primary Care Physician: Liv Richardson M.D. MEDICAL IMAGING REPORT This report is preliminary unless electronic signature is present EXAM KUB HISTORY Dobbhoff tube placement. TECHNIQUE Single view of the abdomen was obtained. FINDINGS The tip of the Dobbhoff tube is in good position over the mid stomach. The bowel gas pattern is normal. STAT * RESULT Dictated by... Antonio Rivas M.D. THIS IS AN ELECTRONICALLY VERIFIED REPORT Antonio Rivas M.D. at 08/22/2016 4:40 PM ARUN/logan TD: 08/22/2016 16:16 JOB #: [id number] MEDICAL IMAGING REPORT Page 1 of 1 COPY
--- NOTE | ~2016-08-09 | CR72 ---
[facility] A Service of [facility] & [facility] RADIOLOGY TEXT RESULTS PATIENT: JULIO JIMENEZ LOCATION: [address] : 53 UNIT #: [id number] AGE: [address]: Maxim Melissa MD SEX: F ORDER DR: [id number] [facility] [address] [facility]. [place], [place] [address] [id number] I MR#: [id number] Acc #: [id number] NAME: JULIO JIMENEZ : 1955 SEX: F STUDY DATE/TIME: 08/15/2016 6:14 UNIT: [facility] ROOM: [facility] STUDY DESCRIPTION: CR Chest Single View Portable Attending Physician: Maxim Melissa M.D. Ordering Physician: Maxim Melissa M.D. Primary Care Physician: Liv Richardson M.D. MEDICAL IMAGING REPORT This report is preliminary unless electronic signature is present EXAM Portable chest 08/15/16. HISTORY Respiratory failure post invasive procedure, reintubation today. FINDINGS The heart is enlarged but stable compared with the previous exam performed earlier today at 04:08 a.m. The tip of the endotracheal tube is approximately 4 cm above the frantz. Nasogastric tube and right internal jugular central line are unchanged. There are bilateral pleural effusions with bibasilar infiltrates or atelectasis. No pneumothorax. IMPRESSION The tip of the endotracheal tube is 4 cm above the frantz. Dictated by... Danish Johnston M.D. THIS IS AN ELECTRONICALLY VERIFIED REPORT Danish Johnston M.D. at 08/17/2016 8:02 AM KRT/tricia TD: 08/15/2016 12:02 JOB #: [id number] MEDICAL IMAGING REPORT Page 1 of 1 COPY
--- NOTE | ~2016-08-09 | CR72 ---
[facility] A Service of [facility] RADIOLOGY TEXT RESULTS PATIENT: JULIO JIMENEZ LOCATION: [place] [address] : 53 UNIT #: [id number] AGE: [address]: Maxim Melissa MD SEX: F ORDER DR: [id number] [facility] [address] [facility]. [place], [place] [address] [id number] I MR#: [id number] Acc #: [id number] NAME: JULIO JIMENEZ : 1955 SEX: F STUDY DATE/TIME: 08/19/2016 4:52 UNIT: [facility] ROOM: [facility] STUDY DESCRIPTION: CR Chest Single View Portable Attending Physician: Maxim Melissa M.D. Ordering Physician: Maxim Melissa M.D. Primary Care Physician: Liv Richardson M.D. MEDICAL IMAGING REPORT This report is preliminary unless electronic signature is present EXAM Portable chest HISTORY Respiratory failure, CHF, diabetes, hypertension, COPD, symptoms started 10 days ago, on the ventilator. COMMENT Single frontal portable view of the chest timed 04:52 08/19/2016 compared to 08/18/2016. The cardiac silhouette is moderately enlarged. Endotracheal tube is satisfactory. No change in the right IJ approach catheter. A feeding tube is present tip not on the film. No change left IJ approach catheter. Continued consolidation left base obscured by the enlarged heart probably with some pleural fluid. Continued consolidation right [id number] lung mildly improved from prior. Again there are postoperative changes at the right hilum with fullness. Please correlate with malignancy history. IMPRESSION Mild improvement in airspace disease right lung base. Otherwise no significant interval change in the appearance of the chest. Tubes and lines unchanged. Dictated by... Sylvia Saenz M.D. THIS IS AN ELECTRONICALLY VERIFIED REPORT Sylvia Saenz M.D. at 08/21/2016 8:38 AM FEDERICO/mjs [facility] A Service of [facility] RADIOLOGY TEXT RESULTS PATIENT: JULIO JIMENEZ LOCATION: [address] : 53 UNIT #: [id number] AGE: [address]: Maxim Melissa MD SEX: F ORDER DR: TD: 08/20/2016 06:39 JOB #: [id number] MEDICAL IMAGING REPORT Page 1 of 1 COPY
--- NOTE | ~2016-08-09 | CO ---
Unit #: [id number] #: [id number] Patient: JULIO JIMENEZ [id number] [address] [address] [id number] I MR#: [id number] NAME: JULIO JIMENEZ ROOM: [facility] Age: 61 Sex: F Admission Date: 08/09/2016 : 1955 Attending Physician: Maxim Melissa M.D. Primary Care Physician: Liv Richardson M.D. Consultation Date: 08/09/2016 CONSULTATION REPORT REASON FOR CONSULTATION CHF. HISTORY OF PRESENT ILLNESS This is a 60-year-old female with a prior medical history of diabetes mellitus; hypertension; hyperlipidemia; chronic kidney disease; COPD; obstructive sleep apnea; and lung cancer, status post partial lobectomy. She was recently admitted and treated for acute pancreatitis in May of 2016, at which time, she left against medical advice. She presented to the ER today with complaints of shortness of breath and lower extremity edema, ongoing for the past 2 days. She reports orthopnea, PND, and dyspnea on exertion. Her BNP was elevated at 3490, and chest x-ray showed cardiomegaly with pulmonary vascular congestion and a left pleural effusion. Prior echocardiogram done on 11/30/2012 revealed EF 45% to 50% with left ventricular hypertrophy and pseudonormalization. She also complained of right upper quadrant abdominal pain. States she fell at home, and has had the pain since then. Her abdomen is tender to palpation. PAST MEDICAL HISTORY 1. Recent pancreatitis in May 2016. 2. Hypertension. 3. Hyperlipidemia. 4. Diabetes mellitus. 5. Chronic kidney disease. 6. COPD. 7. NARESH. 8. Spinal stenosis. 9. Lung cancer, status post partial lobectomy. 10. Tobacco abuse, 1 pack per day. 11. Schizoaffective disorder. PAST SURGICAL HISTORY 1. Partial lung lobectomy from malignancy. 2. Cholecystectomy. 3. Partial thyroidectomy. 4. Hysterectomy. 5. EGD and colonoscopy. SOCIAL HISTORY One pack per day smoker. She denies alcohol use. She denies illicit drug Unit #: [id number] #: [id number] Patient: JULIO JIMENEZ use. She walks with a cane. FAMILY HISTORY Denies family history of coronary artery disease. ALLERGIES No known drug allergies. HOME MEDICATIONS 1. Aspirin 325 mg p.o. once a day. 2. Bumex 2 mg p.o. daily. 3. Depakote ER 1000 mg p.o. at bedtime. 4. Donepezil 10 mg p.o. once a day. 5. Gabapentin 400 mg p.o. 4 times a day. 6. Guaifenesin 600 mg p.o. twice a day. 7. [place] 7.5/325 one tablet every 8 hours as needed for pain. 8. Humalog 25 units subcu twice a day. 9. Linzess 290 mcg p.o. daily. 10. Mirtazapine 7.5 mg p.o. at bedtime. 11. Nitroglycerin 0.4 mg sublingual as needed for chest pain. 12. Prilosec 40 mg p.o. daily. 13. Zoloft 100 mg p.o. daily. 14. Zanaflex 4 mg p.o. twice a day as needed for muscle spasms. REVIEW OF SYSTEMS Positive for shortness of breath, dyspnea on exertion, orthopnea, bilateral lower extremity swelling, PND, weakness, fatigue, plus left abdominal pain, and cough. Otherwise, negative except for what was stated in the HPI. PHYSICAL EXAMINATION VITAL SIGNS: Temperature 98.1, heart rate 67, respiratory rate 20, blood pressure 175/85, 97% on 2 L nasal cannula. GENERAL: Drowsy, arouses to voice. A 60-year-old female, in no acute distress. HEENT: Head is atraumatic and normocephalic. Pupils are equal and round. Mucous membranes are moist. NECK: Supple. Trachea is midline. Negative for JVD. LUNGS: Crackles in bases. Nonlabored respirations. CARDIOVASCULAR: S1 and S2. Distant heart tones. Regular, rate, and rhythm. ABDOMEN: Soft. Right upper quadrant tender to palpation. Nondistended. EXTREMITIES: Pulses are palpable. 1+ pedal edema. No cyanosis. NEUROLOGIC: Drowsy, but arouses to voice and answers questions. Moves all extremities equally and follows commands without difficulty. LABORATORY DATA Sodium 136, potassium chloride 101, BUN 14, creatinine 1.6, glucose 131. Hemoglobin 10.6, hematocrit 34.2, white blood cell count 7.4, platelets 395. AST 10, ALT 6, alkaline phosphatase 115. Lipase 14. Lactic acid 1.4. BNP 3490. Point of care troponin 0.22. IMAGING STUDIES Chest x-ray showed mild vascular congestion since prior examination on 07/24/2016. Stable cardiomegaly. Left pleural effusion. Cardiovascular studies: EKG reveals sinus rhythm with ventricular rate of 60 and nonspecific T-wave abnormalities. Unit #: [id number] #: [id number] Patient: JULIO JIMENEZ ASSESSMENT 1. Costochondral pain, secondary to fall. 2. Diastolic congestive heart failure, ejection fraction 45% to 50% per echo 11/10/2012. 3. Hypertensive heart disease. 4. Diabetes mellitus. 5. Chronic kidney disease. 6. Schizoaffective disorder. 7. Left lung surgery for lung cancer. 8. Left pleural effusion. 9. Hypokalemia. PLAN 1. We will increase diuretics and add Bumex 2 mg IV twice a day. 2. We will obtain a left lateral decubitus x-ray to evaluate left pleural effusion. May need a left thoracentesis. We will consult IR for possible left thoracentesis. 3. Replace potassium and magnesium. 4. 2000 mL fluid restriction. 5. Strict I and O. 6. Daily weight. 7. Echocardiogram. 8. Add beta-dave with parameters to hold if systolic blood pressure less than 100. 9. BNP, CBC, and magnesium level in a.m. 10. Trend cardiac enzymes. Thank you for asking us to this patient. We appreciate the consult. Dictated by... Tali Baez APRN for Rukhsana Luna/aren TD: 08/10/2016 14:27 JOB #: [id number] CONSULTATION REPORT Page 1 of 1 X X CONSULTATION REPORT
--- NOTE | ~2016-08-09 | CR72 ---
[facility] A Service of [facility] & [facility] RADIOLOGY TEXT RESULTS PATIENT: JULIO JIMENEZ LOCATION: [address] : 53 UNIT #: [id number] AGE: [address]: Maxim Melissa MD SEX: F ORDER DR: [id number] [facility] [address] [facility]. [place], [place] [address] [id number] I MR#: [id number] Acc #: [id number] NAME: JULIO JIMENEZ : 1955 SEX: F STUDY DATE/TIME: 08/17/2016 16:43 UNIT: [facility] ROOM: [facility] STUDY DESCRIPTION: CR Chest Single View Portable Attending Physician: Maxim Melissa M.D. Ordering Physician: Ed Doctor [id number] [facility] Primary Care Physician: Liv Richardson M.D. MEDICAL IMAGING REPORT This report is preliminary unless electronic signature is present EXAM Portable chest HISTORY Shortness of air. Respiratory failure today. Left IJ line placement today. FINDINGS Left IJ Shiley catheter tip is in the left upper mediastinum at the level of the central left brachiocephalic vein. The line does not extend into the SVC. No pneumothorax. Remainder of the support devices are stable compared to earlier today. Persistent dense consolidation or atelectasis in the left base and small bilateral pleural effusions and mild right basilar atelectasis. Dictated by... Wilmer Rees M.D. THIS IS AN ELECTRONICALLY VERIFIED REPORT Wilmer Rees M.D. at 08/18/2016 2:43 PM RAJENDRA/marielena TD: 08/18/2016 00:33 JOB #: [id number] MEDICAL IMAGING REPORT Page 1 of 1 COPY
--- NOTE | ~2016-08-09 | OR ---
Unit #: [id number] #: [id number] Patient: JULIO JIMENEZ [id number] [address] [address] [id number] I MR#: [id number] NAME: JULIO JIMENEZ ROOM: [facility] Date of Procedure: 08/18/2016 Admission Date: 08/09/2016 Surgeon: Brittany De La Fuente M.D. : 1955 Attending Physician: Maxim Melissa M.D. Primary Care Physician: Liv Richardson M.D. PROCEDURE OPERATIVE NOTE PROCEDURE PERFORMED Left intrajugular hemodialysis venous catheter placement with ultrasound guidance. PREOPERATIVE DIAGNOSIS Respiratory failure and progressive renal failure. COMPLICATIONS None. DESCRIPTION OF THE PROCEDURE An informed consent was obtained from the family after explaining the benefit and risk of this procedure. The patient was prepped and positioned in a proper way. Then, a body drape was applied after chlorhexidine was used to clean the left IJ area. With the ultrasound guidance, a needle was inserted in the left IJ until blood flow was obtained. Then, a guidewire was inserted and the needle was removed. Then, a dilator was used to create a tract for the hemodialysis catheter which was eventually introduced over the guidewire and the guidewire was removed. The dialysis catheter was sutured in place appropriately with no complication. A stat chest x-ray pending at the time of this dictation. Dictated by... Brittany De La Fuente M.D. EA/crystal TD: 08/19/2016 10:07 JOB #: [id number] Unit #: [id number] #: [id number] Patient: JULIO JIMENEZ PROCEDURE OPERATIVE NOTE Page 1 of 1 X BRITTANY CHAVEZ MD X PROCEDURE OPERATIVE NOTE
--- NOTE | ~2016-08-09 | CR72 ---
[facility] A Service of [facility] & [facility] RADIOLOGY TEXT RESULTS PATIENT: JULIO JIMENEZ LOCATION: [place] [address] : 53 UNIT #: [id number] AGE: [address]: Maxim Melissa MD SEX: F ORDER DR: [id number] [facility] [address] [facility]. [place], [place] [address] [id number] I MR#: [id number] Acc #: [id number] NAME: JULIO JIMENEZ : 1955 SEX: F STUDY DATE/TIME: 08/16/2016 5:40 UNIT: [facility] ROOM: [facility] STUDY DESCRIPTION: CR Chest Single View Portable Attending Physician: Maxim Melissa M.D. Ordering Physician: Ha De La Fuente M.D. Primary Care Physician: Liv Richardson M.D. MEDICAL IMAGING REPORT This report is preliminary unless electronic signature is present EXAM Single view chest INDICATION Lung cancer. Respiratory failure. FINDINGS Single portable AP view of the chest compared to 08/15/2016. Support lines and tubes are unchanged. The heart and mediastinal contours are stable. Bibasilar airspace opacities/pleural effusions are similar to the prior study. No pneumothorax. IMPRESSION No interval change. Dictated by... Eleazar Azevedo M.D. THIS IS AN ELECTRONICALLY VERIFIED REPORT Eleazar Azevedo M.D. at 08/17/2016 12:48 AM JANET/jennifer TD: 08/16/2016 06:22 JOB #: [id number] MEDICAL IMAGING REPORT Page 1 of 1 COPY
--- NOTE | ~2016-08-09 | CR72 ---
[facility] A Service of [facility] & [facility] RADIOLOGY TEXT RESULTS PATIENT: JULIO JIMENEZ LOCATION: [place] [address] : 53 UNIT #: [id number] AGE: [address]: Maxim Melissa MD SEX: F ORDER DR: [id number] [facility] [address] [facility]. [place], [place] [address] [id number] I MR#: [id number] Acc #: [id number] NAME: JULIO JIMENEZ : 1955 SEX: F STUDY DATE/TIME: 08/11/2016 14:18 UNIT: [facility] ROOM: [facility] STUDY DESCRIPTION: CR Chest Single View Portable Attending Physician: Maxim Melissa M.D. Ordering Physician: Cameron Mcneill M.D. Primary Care Physician: Liv Richardson M.D. MEDICAL IMAGING REPORT This report is preliminary unless electronic signature is present EXAM Portable chest. HISTORY ETT, central line and Dobbhoff tube placement today. FINDINGS ETT tip is 6 cm above the frantz. Right IJ central line tip is in mid SVC 4 cm above the junction of the SVC and right atrium. Feeding tube extends into the stomach. Consolidation or atelectasis in the left base. Small left pleural effusion. No pneumothorax. Moderate cardiac enlargement. Dictated by... Wilmer Rees M.D. THIS IS AN ELECTRONICALLY VERIFIED REPORT Wilmer Rees M.D. at 08/12/2016 10:34 PM RAJENDRA/jimmy TD: 08/11/2016 23:35 JOB #: [id number] MEDICAL IMAGING REPORT Page 1 of 1 COPY
--- NOTE | ~2016-08-09 | CR72 ---
[facility] A Service of [facility] & [facility] RADIOLOGY TEXT RESULTS PATIENT: JULIO JIMENEZ LOCATION: [place] [address]12 : 53 UNIT #: [id number] AGE: [address]: Maxim Melissa MD SEX: F ORDER DR: [id number] [facility] [address] [facility]. [place], [place] [address] [id number] I MR#: [id number] Acc #: [id number] NAME: JULIO JIMENEZ : 1955 SEX: F STUDY DATE/TIME: 08/16/2016 18:10 UNIT: [facility] ROOM: [facility] STUDY DESCRIPTION: CR Chest Single View Portable Attending Physician: Maxim Melissa M.D. Ordering Physician: Maxim Melissa M.D. Primary Care Physician: Liv Richardson M.D. MEDICAL IMAGING REPORT This report is preliminary unless electronic signature is present EXAM Portable chest, 08/16 at 18:10 INDICATIONS Intubation and line placement today. FINDINGS AP portable chest compared with earlier today. ET tube mid trachea. Right IJ line in the SVC. Feeding tube is just past the GE junction and should be advanced and a KUB should be obtained. Cardiomegaly is stable. There is improved aeration at the left base. There is continued consolidation in both bases with small effusions. No pneumothorax. Dictated by... Antonio Becerril Jr., M.D. THIS IS AN ELECTRONICALLY VERIFIED REPORT Antonio Becerril Jr., M.D. at 08/17/2016 5:58 AM YAMILETH/carl TD: 08/16/2016 22:00 JOB #: [id number] MEDICAL IMAGING REPORT Page 1 of 1 COPY
--- NOTE | ~2016-08-09 | OR ---
Unit #: [id number] #: [id number] Patient: JULIO JIMENEZ [id number] [address] [place], [place] [address] [id number] I MR#: [id number] NAME: JULIO JIMENEZ ROOM: [facility] Date of Procedure: Admission Date: 08/09/2016 Surgeon: Cameron Mcneill M.D. : 1955 Attending Physician: Maxim Melissa M.D. Primary Care Physician: Liv Richardson M.D. PROCEDURE OPERATIVE NOTE PROCEDURE Endotracheal intubation. INDICATION Respiratory failure. DETAILS OF THE PROCEDURE The patient was given 20 mg of etomidate and 4 mg of versed for sedation. With the help of the Eschmann catheter, a size 6 endotracheal tube passed over Eschmann catheter over the vocal cord. Good collection with (1) CO2 monitor. Endotracheal tube placement was performed with a chest x-ray. The patient tolerated the procedure very well. No complications happened. Dictated by... Rukhsana Conti TD: 08/13/2016 06:16 JOB #: [id number] PROCEDURE OPERATIVE NOTE Page 1 of 1 X Cameron Mcneill MD PROCEDURE OPERATIVE NOTE
--- NOTE | ~2016-08-09 | FU ---
[facility] Nutrition Therapy DATE: 08/23/16 Patient: JULIO JIMENEZ Physician: JAYDA Address: [address] [place] [address] Room/Bed: [address], Zip: [place] [address] Admit Date: 08/09/16 Date of : [birth year] Height: 5 0 Weight: 201 91.5 NUTRITION MONITORING/FOLLOW-UP: Reason: PT SEEN FOR FOLLOW-UP/ENTERAL NUTRITION SUPPORT DX: CHF, CKD Anthropometrics: 5'0", WT: 201# ( 91 KG), BMI: 39.3 -WEIGHTS HAVE RANGED 180-244# SINCE ADMIT Labs: GLU: 119, BUN: 31, CREAT: 1.8, ALB: 2.5, GFR: 34.1, K+:3.4 Meds: LEVEMIR, MIRALAX, PROTONIX, NOVOLOG, SOLU-MEDROL, ZOFRAN, VITAMIN D I&O's: [phone]/5344, 4 BMs NOTED Skin: HIPS/TRUNK GENERAL EDEMA; BLE/PEDAL GENERAL EDEMA; BUE GENERAL EDEMA; HANDS PITTING EDEMA Estimated Nutrition Needs: [phone] KCAL 68-91 G PRO Assessment: CHART REVIEWED AND EVENTS NOTED. PT SEEN FOR FOLLOW-UP. PT EXTUBATED, CURRENTLY ON 15 L OXYMIZER RECEIVING ALTERNATIVE NUTRITION SUPPORT OF NEPRO @ 40 ML/HR + 30 ML SUGAR-FREE PROSTAT DAILY. PER RN AND CHART, PT TOLERATING EN. PER PUMP HISTORY, PT RECEIVING ~86% TOTAL VOLUME PAST [address] FOR SUPERINTENDENT FISH HATCHERY EVAL TODAY. OF NOTE, PT CONTINUING TO RECEIVE HD. RD TO CONTINUE TO FOLLOW. SEE RECOMMENDATIONS BELOW. Dx: INADEQUATE ORAL INTAKE R/T CURRENT DIAGNOSIS, VENT DEPENDENCE AEB PT RECEIVING ALTERNATIVE NUTRITION SUPPORT.-ACTIVE/RESOLVED NEW Dx;: INADEQUATE ORAL INTAKE R/T CURRENT DIAGNOSIS, CURRENT CONDITION AEB PT RECEIVING ALTERNATIVE NUTRITION SUPPORT. Intervention: 1. ENTERAL NUTRITION Monitoring, Evaluation and Goals: 1. ENTERAL NUTRITION; PROVIDE >80% TOTAL VOLUME X 24 HOURS-MET 2. WEIGHTS; PROMOTE GRADUAL WEIGHT LOSS-NOT MET/-(EDEMA/FLUID RETENTION NOTED) 3. LABS; WNL-IN PROGRESS/NOT MET 4. GI; PROMOTE REGULAR GI FUNCTION- IN PROGRESS NEW GOAL: (IN ADDITION TO ABOVE) 1. ORAL INTAKE; ADVANCE DIET PER SUPERINTENDENT FISH HATCHERY AND CONSUME >50% OF MEALS [facility] Nutrition Therapy DATE: 08/23/16 Patient: JULIO JIMENEZ Physician: JAYDA Address: [address] [facility] Room/Bed: [address], Zip: [place] [address] Admit Date: 08/09/16 Date of : [birth year] Height: 5 0 Weight: 201 91.5 MONITOR: -TF RATE/RESIDUALS -WEIGHTS -LABS -SUPERINTENDENT FISH HATCHERY EVAL? Recommendations: 1. CONTINUE CURRENT ENTERAL NUTRITION SUPPORT OF NEPRO @ 40 ML/HR + 30 ML SUGAR-FREE PROSTAT DAILY IF PT'S RENAL FAILURE PROGRESSES -PROVIDES 1828 KCAL, 93 G PRO, 701 ML FREE H20 ADD FREE H20 FLUSHES PER MD 2. ONCE PT'S RENAL FUNCTION IMPROVES, RECOMMEND TO SWITCH ENTERAL NUTRITION SUPPORT TO GLUCERNA 1.5 @ 45 ML/HR -PROVIDES 1620 KCAL, 73 G PRO, 821 ML FREE H20 ADD FREE H20 FLUSHES PER MD 3. ONCE MEDICALLY FEASIBLE, ADVANCE DIET PER SUPERINTENDENT FISH HATCHERY + CC/HH 2'PMH RD WILL F/U PER PROTOCOL PT IS MODERATELY COMPROMISED Respectfully, MARGIE LUNA MS, RD, LD [facility] and Nutritional [facility] cc: client file
--- NOTE | ~2016-08-09 | CR72 ---
[facility] A Service of [facility] & [facility] RADIOLOGY TEXT RESULTS PATIENT: JULIO JIMENEZ LOCATION: [place] [id number] : 53 UNIT #: [id number] AGE: [address]: Maxim Melissa MD SEX: F ORDER DR: [id number] [facility] [address] [facility]. [place], [place] [address] [id number] I MR#: [id number] Acc #: [id number] NAME: JULIO JIMENEZ : 1955 SEX: F STUDY DATE/TIME: 08/12/2016 11:52 UNIT: [facility] ROOM: [facility] STUDY DESCRIPTION: CR Chest Single View Portable Attending Physician: Maxim Melissa M.D. Ordering Physician: Maxim Melissa M.D. Primary Care Physician: iLv Richardson M.D. MEDICAL IMAGING REPORT This report is preliminary unless electronic signature is present EXAM Portable chest HISTORY Congestive heart failure for 5 days. Shortness of air. FINDINGS Support devices are in essentially stable position compared to earlier today. ETT tip is 6 cm above the frantz. Stable dense consolidation or atelectasis in the left base and probable small left pleural effusion. No infiltrates are identified on the right. Dictated by... Wilmer Rees M.D. THIS IS AN ELECTRONICALLY VERIFIED REPORT Wilmer Rees M.D. at 08/13/2016 5:33 PM RAJENDRA/rosmery TD: 08/13/2016 00:16 JOB #: [id number] MEDICAL IMAGING REPORT Page 1 of 1 COPY
--- NOTE | ~2016-08-09 | CR72 ---
[facility] A Service of [facility] & [facility] RADIOLOGY TEXT RESULTS PATIENT: JULIO JIMENEZ LOCATION: [address] : 53 UNIT #: [id number] AGE: [address]: Maxim Melissa MD SEX: F ORDER DR: [id number] [facility] [address] [facility]. [place], [place] [address] [id number] I MR#: [id number] Acc #: [id number] NAME: JULIO JIMENEZ : 1955 SEX: F STUDY DATE/TIME: 08/22/2016 15:08 UNIT: [facility] ROOM: [facility] STUDY DESCRIPTION: CR Chest Single View Portable Attending Physician: Maxim Melissa M.D. Ordering Physician: Maxim Melissa M.D. Primary Care Physician: Liv Richardson M.D. MEDICAL IMAGING REPORT This report is preliminary unless electronic signature is present EXAM Portable chest. HISTORY Evaluate partial insertion of Dobbhoff tube for placement in the trachea. TECHNIQUE A single AP view of the chest was obtained and compared with 08/21/2016. FINDINGS The Dobbhoff tube tip is at the gastroesophageal junction appears satisfactory. The tube could be advanced approximately 20 cm for optimum positioning in the stomach. STAT * RESULT Dictated by... Antonio Rivas M.D. THIS IS AN ELECTRONICALLY VERIFIED REPORT Antonio Rivas M.D. at 08/22/2016 4:40 PM ARUN/jimmy TD: 08/22/2016 16:16 JOB #: [id number] MEDICAL IMAGING REPORT Page 1 of 1 COPY
--- NOTE | ~2016-08-09 | CR72 ---
[facility] A Service of [facility] RADIOLOGY TEXT RESULTS PATIENT: JULIO JIMENEZ LOCATION: [place] [id number] : 53 UNIT #: [id number] AGE: [address]: Maxim Melissa MD SEX: F ORDER DR: [id number] [facility] [address] [facility]. [place], [place] [address] [id number] I MR#: [id number] Acc #: [id number] NAME: JULIO JIMENEZ : 1955 SEX: F STUDY DATE/TIME: 08/18/2016 5:37 UNIT: [facility] ROOM: [facility] STUDY DESCRIPTION: CR Chest Single View Portable Attending Physician: Maxim Melissa M.D. Ordering Physician: Ha De La Fuente M.D. Primary Care Physician: Liv Richardson M.D. MEDICAL IMAGING REPORT This report is preliminary unless electronic signature is present EXAM Portable chest, 08/18/16 HISTORY Tube placement, short of air, on ventilator, respiratory failure. TECHNIQUE Single frontal portable view of the chest on at 5:37 on 08/18/16 compared to 08/17/16. FINDINGS The endotracheal tube is satisfactory. The patient has a feeding tube passing at least below the diaphragm, but the tip is not on the film. No change in the left side IJ catheter. Cardiac silhouette is moderately enlarged, and there are postoperative changes at the left hilum. Configuration is probably not changed. There is continued air space disease, right mid to lower lung, and this is worse. I suspect some layering pleural fluid. The left base is largely obscured. There is no pneumothorax. IMPRESSION Some worsening in airspace disease, right mid to lower lung, likely layering pleural fluid. Left base is obscured by the enlarged heart. Postoperative changes left hilum. Tubes and lines unchanged. Cardiac silhouette is enlarged. Dictated by... Sylvia Saenz M.D. [facility] A Service of [facility] RADIOLOGY TEXT RESULTS PATIENT: JULIO JIMENEZ LOCATION: [facility]IC[facility]2-12 : 53 UNIT #: [id number] AGE: [address]: Maxim Melissa MD SEX: F ORDER DR: THIS IS AN ELECTRONICALLY VERIFIED REPORT Sylvia Saenz M.D. at 08/19/2016 7:18 AM FEDERICO/marielena TD: 08/18/2016 16:53 JOB #: [id number] MEDICAL IMAGING REPORT Page 1 of 1 COPY
--- NOTE | ~2016-08-09 | DS ---
Unit #: [id number] #: [id number] Patient: JULIO JIMENEZ [id number] [address] [address] [id number] I MR#: [id number] NAME: JULIO JIMENEZ ROOM: [facility] Age: 61 Sex: F Admission Date: 08/09/2016 : 1955 Discharge Date: 08/31/2016 Attending Physician: Maxim Melissa M.D. Primary Care Physician: Liv Richardson M.D. DISCHARGE SUMMARY PRINCIPAL DISCHARGE DIAGNOSES 1. Acute on chronic respiratory failure. 2. Acute on chronic kidney disease requiring hemodialysis temporarily. 3. Chronic obstructive pulmonary disease. 4. Tobacco abuse. 5. History of left lung cancer status post left lobectomy. 6. Acute on chronic systolic congestive heart failure. 7. Hypertension. 8. Anemia. 9. Obstructive sleep apnea syndrome. 10. Coronary artery disease. 11. Methicillin-resistant Staphylococcus aureus pneumonia. 12. Vancomycin-resistant Enterococcus urinary tract infection. 13. Yeast urinary tract infection. 14. Escherichia coli urinary tract infection. 15. Schizoaffective disorder. 16. History of transient ischemia attack. 17. Type 2 diabetes mellitus. PROCEDURES 1. Endotracheal intubation, 08/10/16. 2. Bronchoscopy, 08/10/16. 3. Shiley catheter placement, 08/18/16. 4. Central line placement right IJ. Date unknown. 5. Hemodialysis on 08/18, 08/20, 08/21, 08/22, 08/23 and 08/24/16. CONSULTANTS 1. Dr. Mcneill. 2. Dr. Yang. 3. Dr. Pop. REASON FOR HOSPITALIZATION The patient is a 60-year-old black female with a history of chronic kidney disease, COPD, tobacco use, hypertension, hyperlipidemia, schizoaffective disorder, left lung cancer status post lobectomy, presents to the emergency room with shortness of air, abdominal wall chest pain, bilateral lower extremity edema. Lactic acid was normal. BNP was 3,490. Chest x-ray showed vascular congestion and postop changes on the left and the patient was admitted. HOSPITAL COURSE The patient was placed on IV Bumex. Her potassium was low. It was replaced. Cardiology was consulted. An echo was performed but it is not currently available in the chart. It did show severe left ventricular Unit #: [id number] #: [id number] Patient: JULIO JIMENEZ. She had more respiratory distress the following day and had to be placed in the ICU. She was intubated, sedated. Her renal function was worsening because of the IV diuresis. Nephrology was consulted. Hemodialysis was begun after Shiley catheter was placed. She had a bronchoscopy. Sputum eventually grew MRSA covered with Zyvox. She did grow out VRE urinary tract infection which was treated as well. She had multiple other UTIs while here, one growing yeast, one growing E. coli. All treated and resolved. She slowly improved after multiple rounds of hemodialysis, antibiotics and ventilatory support. She was eventually extubated on the . She is still having some issues with swallowing and is still on a restrictive diet. She currently has BiPAP 12/5 at 50% q.h.s. and is still wearing O2 during the day, two liters nasal cannula. She currently appears to be stable for discharge to rehab. She is not further requiring dialysis at this time. She apparently has beds available at [facility]. Her CMP yesterday was normal except for a sodium of 134, BUN of 62, creatinine 1.8, GFR 34, phosphorous 5.1, magnesium 1.7, albumin 2.9. Yesterday, her CBC was normal except for hemoglobin of 8.6 which has been stable. ABGs on one and a half liters nasal cannula show a pH of 7.467 CO2 of 38.9 and O2 of 83.8. She has been discharged to rehab. She needs to wear her BiPAP, again, 12/5, 50% q.h.s. O2 as mentioned above. Diet per dietary restrictions written in the chart. She has a right central line that needs to be discontinued prior to discharge. Her Shiley catheter was 'discharged' [sic] two days ago. CURRENT MEDICATIONS 1. DuoNeb per unit dose q.4 hours. 2. Tylenol 650 mg q.6 p.r.n. 3. Magnesium oxide 400 mg p.o. b.i.d. 4. Lovenox 30 mg subcu daily. 5. Seroquel 100 mg p.o. q.h.s. 6. Coreg 6.25 mg p.o. b.i.d. 7. Amlodipine 10 mg p.o. daily. 8. Docusate 100 mg p.o. b.i.d. 9. MiraLax 17 g daily. 10. Bumex 2 mg p.o. b.i.d. 11. Hydralazine 100 mg p.o. q.6 hours. 12. Levemir 20 units subcu a.m. and 10 units subcu q.h.s. 13. NovoLog medium dose sliding scale based on Accu-Cheks a.c. and h.s. 14. Florastor 250 mg p.o. b.i.d. 15. Aspirin 81 mg daily. 16. Protonix 40 mg p.o. daily. 17. Isosorbide dinitrate 20 mg p.o. b.i.d. 18. Nitrostat 0.4 mg sublingual p.r.n. for chest pain. 19. Calcitriol 0.5 mcg p.o. daily. The patient will need to have a followup BMP and CBC in two to three days and a minimum of weekly thereafter while she is in rehab. Dictated by... Rukhsana Hall/tricia TD: 08/31/2016 10:16 Unit #: [id number] #: [id number] Patient: JULIO JIMENEZ JOB #: [id number] DISCHARGE SUMMARY Page 1 of 1 X Maxim Melissa MD X DISCHARGE SUMMARY
--- NOTE | ~2016-08-09 | CO ---
Unit #: [id number] #: [id number] Patient: JULIO JIMENEZ [id number] [place] [id number] [facility]. [place], [place] [address] [id number] I MR#: [id number] NAME: JULIO JIMENEZ ROOM: 312 Age: 61 Sex: F Admission Date: 08/09/2016 : 1955 Attending Physician: Maxim Melissa M.D. Primary Care Physician: Liv Richardson M.D. CONSULTATION REPORT REASON FOR CONSULTATION Renal failure. HISTORY OF PRESENT ILLNESS The patient is a 61-year-old female with significant past medical history of morbid obesity, mainly admitted because of the pain in the left leg and also has significant swelling. The patient do have some chronic kidney disease stage 3 with baseline creatinine of 1.3. Also had past medical history of hypertension. No history of congestive heart failure. The patient has a history of hypertension, diabetes, hyperlipidemia, morbid obesity, and mainly admitted because of the swelling and the pain in the left lower extremity that was not getting better. Baseline creatinine 1.3, creatinine found to be 2.6 yesterday, started on IV fluids, and today creatinine is 2.4 with the patient's blood pressure was also on the low side, which has improved significantly. The patient denies any cough, but do have some fever and chills, which is improving. PAST MEDICAL HISTORY Significant for chronic kidney disease, diabetes mellitus, morbid obesity, and history of hypertension. PAST SURGICAL HISTORY Significant for debridement of the left lower extremity cellulitis. MEDICATIONS Home medications were reviewed that did include Norvasc, Topamax, and also the patient is on Bumex at home, also on Zestril and Glucophage. ALLERGIES The patient is allergic to penicillin. SOCIAL HISTORY Reviewed. FAMILY HISTORY Significant heart problem and cardiac arrest. PHYSICAL EXAMINATION GENERAL: The patient is a morbidly obese female, not in any acute distress. VITAL SIGNS: Last blood pressure is 98/60, pulse is 98, and temperature is 98 degree. HEENT: Pupils are reactive to light. Extraocular movement intact. NECK: Supple. Unit #: [id number] #: [id number] Patient: JULIO JIMENEZ CHEST: Clear with some decreased air entry at the bases. HEART: Regular rate and rhythm. No murmur. No gallop. ABDOMEN: Soft and nontender. EXTREMITIES: Significant edema of the both lower extremities, left greater than right with some redness of the skin. NEUROLOGIC: Grossly nonfocal. DIAGNOSTIC STUDIES LABORATORY RESULTS: Creatinine is 2.6 and 2.4 today. Other electrolytes are acceptable with potassium normal at 3.8. ASSESSMENT AND PLAN 1. Acute kidney injury. Some increase in creatinine that happen from the baseline likely related to hemodynamics with low blood pressure. The patient was on diuretics and GILBERTO inhibitor at home. In the presence of cellulitis that might have contributed to some increase in creatinine. I doubt the patient has some postinfectious glomerulonephritis at this time likely it is up hemodynamically mediated. If creatinine keep getting better, no further workup is needed. 2. Cellulitis. Continue antibiotics. 3. Hypertension. Low blood pressure. Hold antihypertensives. Followup with repeat blood pressure tomorrow morning. Continue IV fluid for another 24 hour, then discontinue. 4. Diabetes mellitus. Hold metformin in the presence of acute kidney injury. We can be restarted later on. 5. Anemia, followup closely, may be anemia of chronic kidney disease. DISCUSSION Followup with the, labs and if creatinine keep getting better, we will try to reduce IV fluids slowly and followup with the patient's hemodynamics, urine output, and electrolytes closely. Thank you for letting me to participate. Dictated by... Daniele Yang M.D. ADAMARIS/aren TD: 08/28/2016 04:50 JOB #: [id number] CONSULTATION REPORT Page 1 of 1 X Daniele Yang MD CONSULTATION REPORT
--- NOTE | ~2016-08-09 | FU ---
[facility] Nutrition Therapy DATE: 08/28/16 Patient: JULIO JIMENEZ Physician: JAYDA Address: [address] [facility] Room/Bed: [address] [place] [address], Zip: [place] [address] Admit Date: 08/09/16 Date of : [birth year] Height: 5 0 Weight: 175 79.6 NUTRITION MONITORING/FOLLOW-UP: Reason: Nutrition follow-up 61 y/o female admitted for CHF, acute CKD Anthropometrics: ht: 5'0" wt: 175# (79.5 kg) BMI 35 -Admit weight: 180-231# since admit Labs: Cl- 97, Glu 46, BUN 72, Creat 1.8, Alb 3.1, Accuchecks 95-310, GFR 34.1 Meds: prednisone, novolog, protonix, coreg, levemir, coreg, miralax, lovenox, zofran I&O's: 730/1802. BM 08/27 Skin: previously noted. Edema: hips/trunk- generalized Estimated Nutrition Needs: 6522-5415 kcal (15-20 kcal/kg) 68-91 g protein (1.5-2.0 g/kg IBW) fluids consistent with kcals Assessment: Chart reviewed, events noted. Pt seen for nutrition follow-up. Pt is now on a pureed consistent carbohydrate + renal diet with nectar thickened liquids. RD customer success intern visited pt at bedside. Pt was showed some confusion when asked about what she had to eat today. She reports she did eat breakfast though, adding having a good appetite. Pt is on 15 L oxymizer. Pt asked for help ordering lunch, RD customer success intern ordered mashed sweet potatoes for pt. Pt also agreed to chocolate magic cup with dinner to supplement her diet. RD will continue to follow. Dx: Inadequate oral intake r/t current diagnosis, current condition AEB pt receiving alternative nutrition support -RESOLVED/NOT ACTIVE New Dx: Sub-optimal oral intake r/t current condition, current diagnosis AEB pt reported possible low intake Intervention: 1. Pureed consistent carb + renal diet + nectar thickened liquids 2. Magic cup with dinner Monitoring, Evaluation and Goals: 1. Enteral nutrition; provide >80% total volume x 24 hours -MET/RESOLVED/NOT ACTIVE 2. Weights; promote gradual weight loss -IN PROGRESS/(EDEMA NOTED) 3. Labs; WNL -IN PROGRESS [facility] Nutrition Therapy DATE: 08/28/16 Patient: JULIO JIMENEZ Physician: JAYDA Address: [address] [facility] Room/Bed: [address] [place] [address], Zip: [place] [address] Admit Date: 08/09/16 Date of : [birth year] Height: 5 0 Weight: 175 79.6 4. GI; promote regular GI function -IN PROGRESS New Goals (in addition to previous): 1. Oral intake; consume/tolerate >50% of all meals and supplements Recommendations: 1. Magic Cup chocolate with dinner. 2. Continue current consistent carbohydrate + renal pureed + nectar thickened liqudis diet. Pt may need assistance ordering meals. 3. Encourage adequate PO intake. Status: mildly compromised Respectfully, DAWOOD CORREA, internal grinder Karla Feldman MS, RD, LD [facility] cc: client file
--- NOTE | ~2016-08-09 | CR72 ---
[facility] A Service of [facility] & [facility] RADIOLOGY TEXT RESULTS PATIENT: JULIO JIMENEZ LOCATION: [place] [id number] : 53 UNIT #: [id number] AGE: [address]: Maxim Melissa MD SEX: F ORDER DR: [id number] [facility] [address] [facility]. [place], [place] [address] [id number] I MR#: [id number] #: [id number] NAME: JULIO JIMENEZ : 1955 SEX: F STUDY DATE/TIME: 08/15/2016 4:08 UNIT: [facility] ROOM: [facility] STUDY DESCRIPTION: CR Chest Single View Portable Attending Physician: Maxim Melissa M.D. Ordering Physician: Cameron Mcneill M.D. Primary Care Physician: Liv Richardson M.D. MEDICAL IMAGING REPORT This report is preliminary unless electronic signature is present EXAM Single view chest. INDICATION Respiratory failure. COPD. TECHNIQUE Single, portable, AP view of the chest compared to 08/14/2016. FINDINGS Support lines and tubes remain in place. The heart is enlarged. Bibasilar airspace opacities and effusions are similar to the prior study. No pneumothorax. IMPRESSION No interval change. Dictated by... Eleazar Azevedo M.D. THIS IS AN ELECTRONICALLY VERIFIED REPORT Eleazar Azevedo M.D. at 08/15/2016 11:40 PM JANET/logan TD: 08/15/2016 11:53 JOB #: [id number] MEDICAL IMAGING REPORT Page 1 of 1 COPY
--- NOTE | ~2016-08-09 | HP ---
Unit #: [id number] #: [id number] Patient: JULIO JIMENEZ [id number] [address] [place], [place] [address] [id number] MR#: [id number] NAME: JULIO JIMENEZ ROOM: 320 Age: 60 Sex: F Admission Date: 08/09/2016 : 1955 Attending Physician: Maxim Melissa M.D. Primary Care Physician: Liv Richardson M.D. HISTORY AND PHYSICAL HISTORY OF PRESENT ILLNESS A 60-year-old black female with a history of chronic kidney disease, COPD, tobacco use, hypertension, hyperlipidemia, schizoaffective disorder, and left lung cancer, status post lobectomy, presented to the emergency room with shortness of air x2 days, abdominal lower chest pain, and bilateral lower extremity edema. No recent change in medications. Patient is a poor historian. She just switched physicians. In any case, in the emergency room she was afebrile. She had a slightly elevated but nondiagnostic troponin. Blood pressure was high. Room air O2 saturations were documented at 93%, but I was told by the ER physician it was in the mid 80s. She had a mild anemia but no elevated white count. BNP was 3490, but she has renal insufficiency. Lactic acid was normal. The patient is admitted for further evaluation. Chest x-ray showed mild vascular congestion, postop changes on the left, and stable cardiomegaly. EKG shows no significant ST or T abnormalities. She has been given IV Bumex and supplemental potassium for hypokalemia. She has been by Cardiology and placed on a fluid restriction, low-sodium diet. An echo is ordered. PAST MEDICAL HISTORY 1. Congestive heart failure. 2. Hypertension. 3. Transient ischemic attack. 4. Chronic obstructive pulmonary disease. 5. Tobacco use. 6. Insulin-requiring type 2 diabetes mellitus. 7. Schizoaffective disorder. 8. Myocardial infarction in 1995 according to the chart. 9. Lung cancer. 10. Anxiety. 11. Depression. 12. Dementia. 13. Pancreatitis. PAST SURGICAL HISTORY 1. Hysterectomy. 2. Partial thyroidectomy. 3. Umbilical hernia repair. 4. Left foot surgery. 5. Left partial pneumonectomy. 6. Left ankle repair. 7. Cholecystectomy. 8. Bilateral cataracts. Unit #: [id number] #: [id number] Patient: JULIO JIMENEZ ALLERGIES No known drug allergies. MEDICATIONS PRIOR TO ADMISSION Unknown. Per the chart, she is on aspirin, Bumex, Aricept, gabapentin, Mucinex, hydrocodone, Humalog, Remeron, omeprazole, and tizanidine. SOCIAL HISTORY Smokes one pack of cigarettes daily. No alcohol or street drug use. FAMILY HISTORY Noncontributory. PHYSICAL EXAMINATION VITAL SIGNS: Temperature 98.7, pulse 61, respirations 18, blood pressure 157/91, and room air O2 saturation again 93%. HEENT: Unremarkable except for some blepharitis in the left eye. She has nasal cannula in place. NECK: Supple without JVD, bruits, adenopathy, or thyromegaly. CHEST: Diffusely decreased breath sounds but clear to auscultation. HEART: Regular rate and rhythm without any murmurs, rubs, or gallops. ABDOMEN: Soft, nondistended, and nontender, with positive with bowel sounds and no hepatosplenomegaly. EXTREMITIES: With 2+ pitting edema of the bilateral lower extremities. GENITOURINARY/RECTAL: Deferred. NEUROLOGIC: Grossly intact. DIAGNOSTIC STUDIES LABORATORY: CBC normal except for a hemoglobin of 10.6 with a low MCV and MCH. BNP 3490. Lipase normal. Lactic acid normal. First troponin 0.22, second troponin 0.26. Urinalysis with 3+ protein, 1+ blood, 5-10 RBCs, 5-10 WBCs, and 3+ bacteria. CMP normal except for an albumin of 1.6, alkaline phosphatase of 115, calcium 6.2, creatinine 1.6, GFR 39, random blood sugar 137, and potassium 2.5. PT and PTT within normal limits. Room air ABG showed a pH of 7.385, PCO2 of 46, and a PAO2 of 53.9. IMAGING: Chest x-ray with mild vascular congestion which is new, postop changes in the left which are stable, and stable cardiomegaly. CARDIOLOGY: EKG shows normal sinus rhythm, inferior Q waves, and no significant ST or T abnormalities. IMPRESSION 1. Respiratory failure, hypoxic. 2. Congestive heart failure. 3. History of chronic obstructive pulmonary disease. 4. Chronic kidney disease stage 3. 5. Lumbar spinal stenosis. 6. Type 2 diabetes mellitus. 7. Schizoaffective disorder. 8. Hyperlipidemia. 9. Anemia, microcytic. 10. History of pancreatitis. 11. Hypokalemia. 12. History of left lung cancer, status post lobectomy. 13. Obstructive sleep apnea syndrome. 14. Obesity. 15. Hysterectomy. Unit #: [id number] #: [id number] Patient: JULIO JIMENEZ 16. Cholecystectomy. 17. Partial thyroidectomy. 18. Tobacco use. 19. Bacteruria. PLAN Diurese. Check echo. Cardiology consult. Fluid and salt restriction. Urine culture. Iron, B12, and folic acid to evaluate her anemia. Check magnesium level and replace per protocol. Lovenox for DVT prophylaxis. Urine culture. Clarify home medications. Accu-Cheks a.c. and at bedtime. Low-dose sliding scale insulin. Further evaluation pending results of the above. Dictated by Rukhsana Hall/rosalio TD: 08/09/2016 19:30 JOB #: [id number] HISTORY AND PHYSICAL Page 1 of 1 X Maxim Melissa MD X HISTORY AND PHYSICAL
--- NOTE | ~2016-08-09 | CR72 ---
[facility] A Service of [facility] & [facility] RADIOLOGY TEXT RESULTS PATIENT: JULIO JIMENEZ LOCATION: [address] : [birth year] UNIT #: [id number] AGE: [address]: Maxim Melissa MD SEX: F ORDER DR: [id number] [facility] [address] [place], [place] [address] [id number] MR#: [id number] Acc #: [id number] NAME: JULIO JIMENEZ : 1955 SEX: F STUDY DATE/TIME: 08/12/2016 5:32 UNIT: [facility] ROOM: [facility] STUDY DESCRIPTION: CR Chest Single View Portable Attending Physician: Maxim Melissa M.D. Ordering Physician: Cameron Mcneill M.D. Primary Care Physician: Liv Richardson M.D. MEDICAL IMAGING REPORT This report is preliminary unless electronic signature is present EXAM Frontal chest 08/12/2016 INDICATIONS Respiratory failure and pneumonia in a 61-year-old female. Ventilator-requiring patient. History of lung cancer and hypertension. Diabetes, congestive heart failure. Symptoms 3 days. History of left lobectomy. COMPARISON Frontal chest compared with 14:18 hours, 08/11/2016. Correlation also made with CT chest 08/11/2016. FINDINGS Preexisting tubes and lines are in satisfactory position. Postop changes on the left with chronic volume loss on the left. The heart is enlarged, but stable. Improvement in inspiratory result. Perihilar and lower lung zone atelectasis or infiltrate on the right, probably unchanged for technical factors. There is consolidation in the mid and lower lung zones on the left, and there is a left-sided effusion. No pneumothorax. IMPRESSION Improved inspiratory result with consolidation in the mid and lower lung zone on the left with a left-sided effusion. Atelectasis or infiltrate in the lower lung zone on the right. No significant changed for technical factors. No pneumothorax. Dictated by... Rock Schafer M.D. THIS IS AN ELECTRONICALLY VERIFIED REPORT Rock Schafer M.D. at 08/12/2016 4:12 PM [facility] A Service of [facility] & [facility] RADIOLOGY TEXT RESULTS PATIENT: JULIO JIMENEZ LOCATION: [address] : [birth year] UNIT #: [id number] AGE: [address]: Maxim Melissa MD SEX: F ORDER DR: BÁRBARA/alberto TD: 08/12/2016 14:11 JOB #: [id number] MEDICAL IMAGING REPORT Page 1 of 1 COPY
[2016-08-09 08:35] LABS: BASOPHIL# 0.1 X10e3 (0-0.3); BASOPHIL% 1.4 % (0-2.5); DIFF IND NO; EOSINOPHIL# 0.1 X10e3 (0-0.7); HEMATOCRIT 34.2 % (35.0-45.0); HEMOGLOBIN 10.6 gm/dL (12.0-16.0); LYMPHOCYTE# 1.9 X10e3 (1.0-3.5); LYMPHOCYTE% 24.9 % (17.0-45.0); MEAN CELL VOLUME 82.5 FL (83-96); MEAN CORPUSCULAR HEMOGLOBIN 25.6 PG (28-34); MEAN PLATELET VOLUME 8.6 FL (6.5-11.5); MONOCYTE# 0.5 X10e3 (0-1.0); MONOCYTE% 7.2 % (3.0-12.0); NEUTROPHIL# 4.9 X10e3 (1.5-7.1); NEUTROPHIL% 65.5 % (40-75); PLATELET COUNT 395 X10e3 (140-420); RED BLOOD COUNT 4.14 X10e (3.90-5.30); RED CELL DISTRIBUTION WIDTH 21.6 % (11.0-15.5); WHITE BLOOD COUNT 7.4 X10e3 (4.0-10.5)
[2016-08-09 09:35] LABS: POC - CKMB 2.3 ng/mL (0.0-7.9); POC - TROPONIN 0.22 ng/mL (<=0.05)
[2016-08-09 09:47] LABS: URINE SOURCE CLEAN CATCH
[2016-08-09 09:52] LABS: URINE APPEARANCE CLOUDY; URINE BILIRUBIN NEG (NEG); URINE BLOOD 1+ (NEG); URINE COLOR YELLOW; URINE GLUCOSE NEG (NEG); URINE KETONE NEG (NEG); URINE LEUKOCYTE ESTERASE NEG (NEG); URINE NITRATE NEG (NEG); URINE PROTEIN 3+ (NEG); URINE SPECIFIC GRAVITY 1.014 (1.003-1.035); URINE UROBILINOGEN 0.2 MG/DL (NEG)
[2016-08-09 09:56] LABS: CULTURE INDICATED? YES; URINE BACTERIA AUWI 3+ (NEGATIVE); URINE SQUAMOUS EPITHELIAL CELL MOD /[HPF]
[2016-08-09 10:11] LABS: BILIRUBIN, DIRECT 0.1 mg/dL (0.0-0.2); BUN/CREATININE RATIO 8.75; CALCIUM SERUM 6.2 mg/dL (8.4-10.2); CREATININE SERUM 1.6 mg/dL (0.6-1.4); GLOM FILT RATE Estimated 39.6 mL/min (>60); PROTEIN TOTAL SERUM 6.6 g/dL (6.0-8.3)
[2016-08-09 10:13] LABS: POTASSIUM 2.5 mmol/L (3.5-5.1)
[2016-08-09 10:22] LABS: ALBUMIN SERUM 1.6 g/dL (3.5-5.0); BILIRUBIN,TOTAL 0.1 mg/dL (0.2-2.0)
[2016-08-09] MEDS ORDERED: ASPIRIN ENTERI325 M1 PO (10:38)
[2016-08-09] MEDS ORDERED: BUMEX2 MG PO (10:44)
[2016-08-09] MEDS ORDERED: DONEPEZIL HCL10 MG PO (10:45)
[2016-08-09] MEDS ORDERED: GABAPENTIN400 M2 PO (10:45)
[2016-08-09] MEDS ORDERED: DEPAKOTE ER PO (10:45)
[2016-08-09] MEDS ORDERED: MUCUS RELIEF600 M1 PO (10:46)
[2016-08-09] MEDS ORDERED: HYDROCODON-ACE1 EAC9 PO (10:46)
[2016-08-09] MEDS ORDERED: HUMALOG MI100 UNIT/5 SUBQ (10:47)
[2016-08-09] MEDS ORDERED: MIRTAZAPINE7.5 MG PO (10:47)
[2016-08-09] MEDS ORDERED: LINZESS290 MCG PO (10:47)
[2016-08-09] MEDS ORDERED: PRILOSEC PO (10:48)
[2016-08-09] MEDS ORDERED: NITROSTAT0.4 MG PO (10:48)
[2016-08-09] MEDS ORDERED: ZANAFLEX PO (10:48)
[2016-08-09] MEDS ORDERED: ZOLOFT PO (10:48)
[2016-08-09 10:50] LABS: POC - CKMB 3.3 ng/mL (0.0-7.9); POC - TROPONIN 0.26 ng/mL (<=0.05)
[2016-08-09 10:58] LABS: ARTERIAL BLD GAS O2 SATURATION 81.6 % (90.0-100.0); ARTERIAL BLOOD GAS CARBOXY HB 6.7 %sat (0.0-9.0); ARTERIAL BLOOD GAS HCO3 27.6 mmol/L; ARTERIAL BLOOD GAS PCO2 46.1 mmHg (35.0-45.0); ARTERIAL BLOOD GAS pH 7.385 (7.350-7.450)
[2016-08-09 10:59] LABS: ARTERIAL BLOOD GAS ALLEN TEST NORMAL; ARTERIAL BLOOD GAS ART SITE RIGHT RADIAL; ARTERIAL BLOOD GAS DELIVERY RA; ARTERIAL BLOOD GAS PO2 52.9 mmHg (80.0-100); ARTERIAL DRAW? YES
[2016-08-09 13:36] LABS: INR 1.1; PARTIAL THROMBOPLASTIN TIME 26.1 SECONDS (23.5-31.3); PROTHROMBIN TIME (PATIENT) 12.3 SECONDS (10.0-11.7)
[2016-08-09 18:10] LABS: %MB 3.1 % (0.0-4.0); MB 3.6 ng/ml
[2016-08-09 18:22] LABS: IRON SERUM 29 ug/dL (28-170); TOTAL IRON BINDING CAPACITY 251 ug/dL (269-535); TRANSFERRIN 179 mg/dL (192-382); TRANSFERRIN SATURATION 12 % (20-50)
[2016-08-09 18:26] LABS: FERRITIN 36 ng/mL (11-307)
[2016-08-09 23:45] LABS: %MB 3.1 % (0.0-4.0); MB 3.1 ng/ml
[2016-08-10] MEDS ORDERED: DEPAKOTE ER PO (08:08)
[2016-08-10] MEDS ORDERED: AMOX-CLAV 400-1 EACH PO (08:13)
[2016-08-10] MEDS ORDERED: CALCITRIOL0.5 MCG PO (08:14)
[2016-08-10] MEDS ORDERED: CEFDINIR300 M1 PO (08:15)
[2016-08-10] MEDS ORDERED: DOK100 MG PO (08:18)
[2016-08-10] MEDS ORDERED: PROMETHAZINE D118 ML PO (08:19)
[2016-08-10] MEDS ORDERED: SEROQUEL XR400 M1 PO (08:21)
[2016-08-10] MEDS ORDERED: HUMALOG KW200 UNIT/1 SUBQ (08:26)
[2016-08-10 09:25] LABS: HEMATOCRIT 32.3 % (35.0-45.0); HEMOGLOBIN 9.9 gm/dL (12.0-16.0); MEAN CELL VOLUME 83.5 FL (83-96); MEAN CORPUSCULAR HEMOGLOBIN 25.5 PG (28-34); MEAN CORPUSCULAR HGB CONC 30.6 g/dL (30-36); MEAN PLATELET VOLUME 8.7 FL (6.5-11.5); RED BLOOD COUNT 3.87 X10e (3.90-5.30); RED CELL DISTRIBUTION WIDTH 21.9 % (11.0-15.5)
[2016-08-10 09:40] LABS: BUN/CREATININE RATIO 7.77; CALCIUM SERUM 6.4 mg/dL (8.4-10.2); CREATININE SERUM 1.8 mg/dL (0.6-1.4); GLOM FILT RATE Estimated 34.1 mL/min (>60)
[2016-08-10 09:41] LABS: POTASSIUM 2.7 mmol/L (3.5-5.1)
[2016-08-10 18:11] LABS: AMYLASE 12 U/L (0-46); LIPASE 16 U/L (22-51)
[2016-08-11 07:33] LABS: HEMATOCRIT 32.1 % (35.0-45.0); HEMOGLOBIN 9.5 gm/dL (12.0-16.0); MEAN CELL VOLUME 84.9 FL (83-96); MEAN CORPUSCULAR HEMOGLOBIN 25.2 PG (28-34); MEAN CORPUSCULAR HGB CONC 29.7 g/dL (30-36); MEAN PLATELET VOLUME 8.8 FL (6.5-11.5); RED BLOOD COUNT 3.78 X10e (3.90-5.30); RED CELL DISTRIBUTION WIDTH 22.9 % (11.0-15.5); WHITE BLOOD COUNT 6.6 X10e3 (4.0-10.5)
[2016-08-11 08:11] LABS: BUN/CREATININE RATIO 7.27; CALCIUM SERUM 6.8 mg/dL (8.4-10.2); CREATININE SERUM 2.2 mg/dL (0.6-1.4); GLOM FILT RATE Estimated 26.8 mL/min (>60); POTASSIUM 4.5 mmol/L (3.5-5.1)
[2016-08-11 10:10] LABS: ARTERIAL BLD GAS O2 SATURATION 78.3 % (90.0-100.0); ARTERIAL BLOOD GAS CARBOXY HB 1.8 %sat (0.0-9.0); ARTERIAL BLOOD GAS HCO3 29.5 mmol/L; ARTERIAL BLOOD GAS MET HB 0.5 %sat (0.0-2.0); ARTERIAL BLOOD GAS pH 7.212 (7.350-7.450)
[2016-08-11 10:15] LABS: ARTERIAL BLOOD GAS ALLEN TEST NORMAL; ARTERIAL BLOOD GAS ART SITE RIGHT RADIAL; ARTERIAL BLOOD GAS DELIVERY NASAL CANNULA; ARTERIAL BLOOD GAS PCO2 73.5 mmHg (35.0-45.0); ARTERIAL BLOOD GAS PO2 51.6 mmHg (80.0-100); ARTERIAL DRAW? YES
[2016-08-11 12:23] LABS: URINE BILIRUBIN NEG (NEG); URINE BLOOD NEG (NEG); URINE GLUCOSE NORM (NORM); URINE KETONE NEG (NEG); URINE LEUKOCYTE ESTERASE NEG (NEG); URINE NITRATE NEG (NEG); URINE PROTEIN 3+ (NEG); URINE UROBILINOGEN NORM (NORM)
[2016-08-11 13:07] LABS: URINE APPEARANCE CLOUDY; URINE COLOR BROWN
[2016-08-11 13:10] LABS: URBCS1 AUWI 0-2 /[HPF] (0-2)
[2016-08-11 13:11] LABS: CULTURE INDICATED? YES; URINE AMORPHOUS SEDIMENT AMORP URATES; URINE BACTERIA AUWI 1+ (NEGATIVE); URINE SQUAMOUS EPITHELIAL CELL MODERATE /[HPF]; URINE WAXY CAST 0-2 /[HPF]
[2016-08-11 14:12] LABS: ARTERIAL BLD GAS O2 SATURATION 92.5 % (90.0-100.0); ARTERIAL BLOOD GAS CARBOXY HB 1.5 %sat (0.0-9.0); ARTERIAL BLOOD GAS HCO3 26.6 mmol/L; ARTERIAL BLOOD GAS MET HB 0.7 %sat (0.0-2.0); ARTERIAL BLOOD GAS pH 7.317 (7.350-7.450)
[2016-08-11 14:14] LABS: ARTERIAL BLOOD GAS ALLEN TEST NORMAL; ARTERIAL BLOOD GAS ART SITE RIGHT RADIAL; ARTERIAL BLOOD GAS DELIVERY VENT; ARTERIAL BLOOD GAS PCO2 51.9 mmHg (35.0-45.0); ARTERIAL BLOOD GAS PO2 76.5 mmHg (80.0-100); ARTERIAL DRAW? YES
[2016-08-11 14:15] LABS: ARTERIAL BLOOD GAS VENT MODE A/C
[2016-08-12 03:50] LABS: ARTERIAL BLD GAS O2 SATURATION 98.9 % (90.0-100.0); ARTERIAL BLOOD GAS CARBOXY HB 0.7 %sat (0.0-9.0); ARTERIAL BLOOD GAS HCO3 23.7 mmol/L; ARTERIAL BLOOD GAS MET HB 0.8 %sat (0.0-2.0); ARTERIAL BLOOD GAS PCO2 32.5 mmHg (35.0-45.0); ARTERIAL BLOOD GAS pH 7.471 (7.350-7.450)
[2016-08-12 04:08] LABS: ARTERIAL BLOOD GAS ALLEN TEST NORMAL; ARTERIAL BLOOD GAS ART SITE RIGHT RADIAL; ARTERIAL DRAW? YES
[2016-08-12 04:09] LABS: ARTERIAL BLOOD GAS DELIVERY VENT; ARTERIAL BLOOD GAS VENT MODE AC
[2016-08-12 05:15] LABS: HEMATOCRIT 34.1 % (35.0-45.0); HEMOGLOBIN 10.4 gm/dL (12.0-16.0); MEAN CELL VOLUME 82.8 FL (83-96); MEAN CORPUSCULAR HEMOGLOBIN 25.3 PG (28-34); MEAN CORPUSCULAR HGB CONC 30.5 g/dL (30-36); MEAN PLATELET VOLUME 9.2 FL (6.5-11.5); RED BLOOD COUNT 4.11 X10e (3.90-5.30); RED CELL DISTRIBUTION WIDTH 22.4 % (11.0-15.5)
[2016-08-12 05:17] LABS: WHITE BLOOD COUNT 10.3 X10e3 (4.0-10.5)
[2016-08-12 05:51] LABS: ALBUMIN SERUM 1.4 g/dL (3.5-5.0); BILIRUBIN,TOTAL 0.2 mg/dL (0.2-2.0); CREATININE SERUM 2.5 mg/dL (0.6-1.4); GLOM FILT RATE Estimated 22.9 mL/min (>60); MAGNESIUM 2.3 mg/dL (1.6-3.0); POTASSIUM 4.5 mmol/L (3.5-5.1)
[2016-08-12 13:30] LABS: URINE APPEARANCE CLEAR; URINE BILIRUBIN NEG (NEG); URINE BLOOD 2+ (NEG); URINE COLOR YELLOW; URINE GLUCOSE NEG (NEG); URINE KETONE TRACE (NEG); URINE LEUKOCYTE ESTERASE TRACE (NEG); URINE NITRATE NEG (NEG); URINE PH 5.5 (5-8); URINE PROTEIN 3+ (NEG); URINE SPECIFIC GRAVITY 1.018 (1.003-1.035); URINE UROBILINOGEN 0.2 MG/DL (NEG)
[2016-08-12 13:31] LABS: URINE BACTERIA AUWI 4+ (NEGATIVE); URINE SQUAMOUS EPITHELIAL CELL NONE SEEN /[HPF]; UWBCS1 AUWI 25-50 (0-5)
[2016-08-12 14:16] LABS: CREATININE,RANDOM URINE 116 mg/dL; SODIUM URINE RANDOM 61 mmol/L; TOTAL PROTEIN,RANDOM URINE 446 mg/dl (<10)
[2016-08-12 18:03] LABS: BUN/CREATININE RATIO 10.83; CREATININE SERUM 2.4 mg/dL (0.6-1.4); GLOM FILT RATE Estimated 24.1 mL/min (>60); POTASSIUM 5.2 mmol/L (3.5-5.1)
[2016-08-13 03:58] LABS: ARTERIAL BLD GAS O2 SATURATION 95.1 % (90.0-100.0); ARTERIAL BLOOD GAS CARBOXY HB 0.9 %sat (0.0-9.0); ARTERIAL BLOOD GAS HCO3 23.7 mmol/L; ARTERIAL BLOOD GAS MET HB 0.5 %sat (0.0-2.0); ARTERIAL BLOOD GAS PCO2 35.6 mmHg (35.0-45.0); ARTERIAL BLOOD GAS PO2 87.6 mmHg (80.0-100); ARTERIAL BLOOD GAS pH 7.432 (7.350-7.450)
[2016-08-13 03:59] LABS: ARTERIAL BLOOD GAS ALLEN TEST NORMAL; ARTERIAL BLOOD GAS ART SITE LEFT RADIAL; ARTERIAL BLOOD GAS DELIVERY VENT; ARTERIAL BLOOD GAS VENT MODE AC; ARTERIAL DRAW? YES
[2016-08-13 04:23] LABS: BASOPHIL% 0.3 % (0-2.5); EOSINOPHIL% 0.2 % (0.0-7.0); HEMATOCRIT 34.2 % (35.0-45.0); HEMOGLOBIN 10.9 gm/dL (12.0-16.0); LYMPHOCYTE# 0.5 X10e3 (1.0-3.5); LYMPHOCYTE% 9.3 % (17.0-45.0); MEAN CELL VOLUME 83.1 FL (83-96); MEAN CORPUSCULAR HEMOGLOBIN 26.5 PG (28-34); MEAN CORPUSCULAR HGB CONC 31.9 g/dL (30-36); MEAN PLATELET VOLUME 8.9 FL (6.5-11.5); MONOCYTE# 0.1 X10e3 (0-1.0); NEUTROPHIL# 5.1 X10e3 (1.5-7.1); NEUTROPHIL% 88.2 % (40-75); PLATELET COUNT 382 X10e3 (140-420); RED BLOOD COUNT 4.11 X10e (3.90-5.30); RED CELL DISTRIBUTION WIDTH 22.9 % (11.0-15.5); WHITE BLOOD COUNT 5.8 X10e3 (4.0-10.5)
[2016-08-13 04:27] LABS: DIFF IND YES
[2016-08-13 04:38] LABS: ALBUMIN SERUM 2.1 g/dL (3.5-5.0); BILIRUBIN,TOTAL 0.9 mg/dL (0.2-2.0); BUN/CREATININE RATIO 11.48; CALCIUM SERUM 7.4 mg/dL (8.4-10.2); CREATININE SERUM 2.7 mg/dL (0.6-1.4); GLOM FILT RATE Estimated 20.9 mL/min (>60); MAGNESIUM 2.5 mg/dL (1.6-3.0); PHOSPHOROUS 4.9 mg/dL (2.5-4.6); POTASSIUM 4.8 mmol/L (3.5-5.1); PROTEIN TOTAL SERUM 6.5 g/dL (6.0-8.3)
[2016-08-13 04:58] LABS: HYPOCHROMIA MOD; PLATELET ESTIMATE NORMAL (NORMAL); TARGET CELLS MOD
[2016-08-13 04:59] LABS: ACANTHOCYTES PRESENT; ANISOCYTOSIS MOD; POIKILOCYTOSIS SL; STOMATOCYTE PRESENT
[2016-08-13 13:51] LABS: ARTERIAL BLOOD GAS PCO2 41.3 mmHg (35.0-45.0); ARTERIAL BLOOD GAS pH 7.441 (7.350-7.450)
[2016-08-13 13:53] LABS: ARTERIAL BLOOD GAS PO2 45.2 mmHg (80.0-100); ARTERIAL DRAW? NO
[2016-08-13 13:54] LABS: ARTERIAL BLOOD GAS DELIVERY VENOUS
[2016-08-13 15:24] LABS: BODY FLUID APPEARANCE TURBID; BODY FLUID SOURCE BRONCHIAL LAVAGE
[2016-08-14 04:49] LABS: ALBUMIN SERUM 1.8 g/dL (3.5-5.0); BILIRUBIN,TOTAL 0.2 mg/dL (0.2-2.0); BUN/CREATININE RATIO 15.18; CALCIUM SERUM 7.7 mg/dL (8.4-10.2); CREATININE SERUM 2.7 mg/dL (0.6-1.4); GLOM FILT RATE Estimated 20.9 mL/min (>60); MAGNESIUM 2.3 mg/dL (1.6-3.0); PHOSPHOROUS 3.9 mg/dL (2.5-4.6); POTASSIUM 4.3 mmol/L (3.5-5.1); PROTEIN TOTAL SERUM 5.9 g/dL (6.0-8.3)
[2016-08-14 04:50] LABS: BASOPHIL% 0.1 % (0-2.5); HEMATOCRIT 32.8 % (35.0-45.0); HEMOGLOBIN 10.3 gm/dL (12.0-16.0); LYMPHOCYTE# 0.4 X10e3 (1.0-3.5); LYMPHOCYTE% 4.8 % (17.0-45.0); MEAN CELL VOLUME 82.3 FL (83-96); MEAN CORPUSCULAR HEMOGLOBIN 25.8 PG (28-34); MEAN CORPUSCULAR HGB CONC 31.4 g/dL (30-36); MEAN PLATELET VOLUME 8.8 FL (6.5-11.5); MONOCYTE# 0.4 X10e3 (0-1.0); MONOCYTE% 4.3 % (3.0-12.0); NEUTROPHIL% 90.8 % (40-75); PLATELET COUNT 355 X10e3 (140-420); RED BLOOD COUNT 3.98 X10e (3.90-5.30)
[2016-08-14 04:50] LABS: ARTERIAL BLD GAS O2 SATURATION 91.8 % (90.0-100.0); ARTERIAL BLOOD GAS CARBOXY HB 1.3 %sat (0.0-9.0); ARTERIAL BLOOD GAS HCO3 27.8 mmol/L; ARTERIAL BLOOD GAS MET HB 0.8 %sat (0.0-2.0); ARTERIAL BLOOD GAS PCO2 35.8 mmHg (35.0-45.0); ARTERIAL BLOOD GAS pH 7.498 (7.350-7.450)
[2016-08-14 04:51] LABS: DIFF IND NO; WHITE BLOOD COUNT 8.8 X10e3 (4.0-10.5)
[2016-08-14 04:53] LABS: ARTERIAL BLOOD GAS ALLEN TEST NORMAL; ARTERIAL BLOOD GAS ART SITE LEFT RADIAL; ARTERIAL BLOOD GAS PO2 72.2 mmHg (80.0-100); ARTERIAL DRAW? YES
[2016-08-14 04:54] LABS: ARTERIAL BLOOD GAS DELIVERY VENT; ARTERIAL BLOOD GAS VENT MODE AC
[2016-08-14 12:32] LABS: ARTERIAL BLD GAS O2 SATURATION 92.3 % (90.0-100.0); ARTERIAL BLOOD GAS CARBOXY HB 0.9 %sat (0.0-9.0); ARTERIAL BLOOD GAS HCO3 27.8 mmol/L; ARTERIAL BLOOD GAS PCO2 37.5 mmHg (35.0-45.0); ARTERIAL BLOOD GAS pH 7.479 (7.350-7.450)
[2016-08-14 12:33] LABS: ARTERIAL BLOOD GAS ALLEN TEST N; ARTERIAL BLOOD GAS ART SITE LEFT RADIAL; ARTERIAL BLOOD GAS DELIVERY VENT; ARTERIAL BLOOD GAS PO2 63.1 mmHg (80.0-100); ARTERIAL DRAW? YES
[2016-08-14 12:34] LABS: ARTERIAL BLOOD GAS VENT MODE CPAP 14/5
[2016-08-15 04:26] LABS: ARTERIAL BLD GAS O2 SATURATION 90.8 % (90.0-100.0); ARTERIAL BLOOD GAS CARBOXY HB 1.1 %sat (0.0-9.0); ARTERIAL BLOOD GAS HCO3 28.8 mmol/L; ARTERIAL BLOOD GAS MET HB 0.6 %sat (0.0-2.0); ARTERIAL BLOOD GAS PCO2 36.4 mmHg (35.0-45.0); ARTERIAL BLOOD GAS pH 7.506 (7.350-7.450)
[2016-08-15 04:27] LABS: ARTERIAL BLOOD GAS ART SITE RIGHT BRACHIAL; ARTERIAL BLOOD GAS DELIVERY VENT; ARTERIAL BLOOD GAS PO2 63.6 mmHg (80.0-100); ARTERIAL BLOOD GAS VENT MODE AC; ARTERIAL DRAW? YES
[2016-08-15 05:25] LABS: BASOPHIL% 0.3 % (0-2.5); HEMATOCRIT 33.6 % (35.0-45.0); HEMOGLOBIN 10.3 gm/dL (12.0-16.0); LYMPHOCYTE# 0.5 X10e3 (1.0-3.5); LYMPHOCYTE% 5.1 % (17.0-45.0); MEAN CELL VOLUME 82.3 FL (83-96); MEAN CORPUSCULAR HEMOGLOBIN 25.3 PG (28-34); MEAN CORPUSCULAR HGB CONC 30.7 g/dL (30-36); MONOCYTE# 0.4 X10e3 (0-1.0); NEUTROPHIL% 90.6 % (40-75); PLATELET COUNT 345 X10e3 (140-420); RED BLOOD COUNT 4.08 X10e (3.90-5.30); RED CELL DISTRIBUTION WIDTH 21.8 % (11.0-15.5); WHITE BLOOD COUNT 9.9 X10e3 (4.0-10.5)
[2016-08-15 05:38] LABS: DIFF IND NO
[2016-08-15 06:17] LABS: ALBUMIN SERUM 1.9 g/dL (3.5-5.0); BILIRUBIN,TOTAL 0.3 mg/dL (0.2-2.0); BUN/CREATININE RATIO 18.57; CREATININE SERUM 2.8 mg/dL (0.6-1.4); MAGNESIUM 2.1 mg/dL (1.6-3.0); POTASSIUM 4.4 mmol/L (3.5-5.1); PROTEIN TOTAL SERUM 5.9 g/dL (6.0-8.3)
[2016-08-16 04:14] LABS: ARTERIAL BLD GAS O2 SATURATION 93.2 % (90.0-100.0); ARTERIAL BLOOD GAS CARBOXY HB 1.2 %sat (0.0-9.0); ARTERIAL BLOOD GAS HCO3 29.9 mmol/L; ARTERIAL BLOOD GAS PCO2 46.6 mmHg (35.0-45.0); ARTERIAL BLOOD GAS pH 7.416 (7.350-7.450)
[2016-08-16 04:42] LABS: ARTERIAL BLOOD GAS ALLEN TEST NORMAL; ARTERIAL BLOOD GAS ART SITE RIGHT RADIAL; ARTERIAL BLOOD GAS PO2 76.2 mmHg (80.0-100); ARTERIAL BLOOD GAS VENT MODE AC; ARTERIAL DRAW? YES
[2016-08-16 05:47] LABS: BASOPHIL% 0.1 % (0-2.5); HEMATOCRIT 31.4 % (35.0-45.0); HEMOGLOBIN 9.6 gm/dL (12.0-16.0); LYMPHOCYTE# 0.6 X10e3 (1.0-3.5); LYMPHOCYTE% 6.2 % (17.0-45.0); MEAN CELL VOLUME 82.8 FL (83-96); MEAN CORPUSCULAR HEMOGLOBIN 25.4 PG (28-34); MEAN CORPUSCULAR HGB CONC 30.7 g/dL (30-36); MONOCYTE# 0.3 X10e3 (0-1.0); MONOCYTE% 3.3 % (3.0-12.0); NEUTROPHIL% 90.4 % (40-75); PLATELET COUNT 299 X10e3 (140-420); RED BLOOD COUNT 3.79 X10e (3.90-5.30); RED CELL DISTRIBUTION WIDTH 21.5 % (11.0-15.5); WHITE BLOOD COUNT 9.9 X10e3 (4.0-10.5)
[2016-08-16 05:54] LABS: DIFF IND NO
[2016-08-16 06:24] LABS: BUN/CREATININE RATIO 23.46; CALCIUM SERUM 7.5 mg/dL (8.4-10.2); CREATININE SERUM 2.6 mg/dL (0.6-1.4); GLOM FILT RATE Estimated 21.9 mL/min (>60); MAGNESIUM 2.3 mg/dL (1.6-3.0); POTASSIUM 4.8 mmol/L (3.5-5.1)
[2016-08-16 18:13] LABS: CALCIUM (PTHINTACT) 7.7 mg/dL (8.6-10.4)
[2016-08-17 04:23] LABS: ARTERIAL BLD GAS O2 SATURATION 94.8 % (90.0-100.0); ARTERIAL BLOOD GAS CARBOXY HB 1.1 %sat (0.0-9.0); ARTERIAL BLOOD GAS HCO3 27.8 mmol/L; ARTERIAL BLOOD GAS MET HB 0.4 %sat (0.0-2.0); ARTERIAL BLOOD GAS PCO2 40.4 mmHg (35.0-45.0); ARTERIAL BLOOD GAS pH 7.445 (7.350-7.450)
[2016-08-17 04:27] LABS: ARTERIAL BLOOD GAS PO2 78.5 mmHg (80.0-100)
[2016-08-17 04:28] LABS: ARTERIAL BLOOD GAS ALLEN TEST NORMAL; ARTERIAL BLOOD GAS ART SITE RIGHT RADIAL; ARTERIAL BLOOD GAS VENT MODE AC; ARTERIAL DRAW? YES
[2016-08-17 06:25] LABS: BASOPHIL% 0.1 % (0-2.5); HEMATOCRIT 31.2 % (35.0-45.0); HEMOGLOBIN 9.5 gm/dL (12.0-16.0); LYMPHOCYTE# 0.4 X10e3 (1.0-3.5); LYMPHOCYTE% 4.2 % (17.0-45.0); MEAN CELL VOLUME 82.8 FL (83-96); MEAN CORPUSCULAR HEMOGLOBIN 25.2 PG (28-34); MEAN CORPUSCULAR HGB CONC 30.4 g/dL (30-36); MEAN PLATELET VOLUME 9.3 FL (6.5-11.5); MONOCYTE# 0.2 X10e3 (0-1.0); MONOCYTE% 2.2 % (3.0-12.0); NEUTROPHIL# 9.9 X10e3 (1.5-7.1); NEUTROPHIL% 93.5 % (40-75); PLATELET COUNT 276 X10e3 (140-420); RED BLOOD COUNT 3.77 X10e (3.90-5.30); RED CELL DISTRIBUTION WIDTH 21.8 % (11.0-15.5); WHITE BLOOD COUNT 10.6 X10e3 (4.0-10.5)
[2016-08-17 06:26] LABS: DIFF IND NO
[2016-08-17 07:22] LABS: ALBUMIN SERUM 1.8 g/dL (3.5-5.0); BILIRUBIN,TOTAL 0.4 mg/dL (0.2-2.0); BUN/CREATININE RATIO 25.17; CALCIUM SERUM 7.5 mg/dL (8.4-10.2); CREATININE SERUM 2.9 mg/dL (0.6-1.4); GLOM FILT RATE Estimated 19.2 mL/min (>60); MAGNESIUM 2.3 mg/dL (1.6-3.0); PHOSPHOROUS 5.6 mg/dL (2.5-4.6); PROTEIN TOTAL SERUM 5.6 g/dL (6.0-8.3)
[2016-08-17 07:23] LABS: POTASSIUM 5.5 mmol/L (3.5-5.1)
[2016-08-18 04:18] LABS: ARTERIAL BLD GAS O2 SATURATION 99.4 % (90.0-100.0); ARTERIAL BLOOD GAS CARBOXY HB 0.6 %sat (0.0-9.0); ARTERIAL BLOOD GAS HCO3 28.9 mmol/L; ARTERIAL BLOOD GAS PCO2 43.2 mmHg (35.0-45.0); ARTERIAL BLOOD GAS pH 7.434 (7.350-7.450)
[2016-08-18 04:32] LABS: ARTERIAL BLOOD GAS ALLEN TEST NORMAL; ARTERIAL DRAW? YES
[2016-08-18 04:33] LABS: ARTERIAL BLOOD GAS ART SITE LEFT RADIAL; ARTERIAL BLOOD GAS DELIVERY VENT; ARTERIAL BLOOD GAS VENT MODE AC
[2016-08-18 05:17] LABS: BASOPHIL% 0.1 % (0-2.5); EOSINOPHIL% 0.1 % (0.0-7.0); HEMATOCRIT 31.9 % (35.0-45.0); HEMOGLOBIN 9.7 gm/dL (12.0-16.0); LYMPHOCYTE% 17.1 % (17.0-45.0); MEAN CELL VOLUME 82.4 FL (83-96); MEAN CORPUSCULAR HEMOGLOBIN 24.9 PG (28-34); MEAN CORPUSCULAR HGB CONC 30.3 g/dL (30-36); MEAN PLATELET VOLUME 9.6 FL (6.5-11.5); MONOCYTE# 0.8 X10e3 (0-1.0); MONOCYTE% 6.8 % (3.0-12.0); NEUTROPHIL# 8.9 X10e3 (1.5-7.1); NEUTROPHIL% 75.9 % (40-75); PLATELET COUNT 265 X10e3 (140-420); RED BLOOD COUNT 3.87 X10e (3.90-5.30); RED CELL DISTRIBUTION WIDTH 21.8 % (11.0-15.5); WHITE BLOOD COUNT 11.7 X10e3 (4.0-10.5)
[2016-08-18 05:24] LABS: DIFF IND NO
[2016-08-18 06:14] LABS: ALBUMIN SERUM 1.8 g/dL (3.5-5.0); BILIRUBIN,TOTAL 0.3 mg/dL (0.2-2.0); BUN/CREATININE RATIO 28.92; CALCIUM SERUM 7.5 mg/dL (8.4-10.2); CREATININE SERUM 2.8 mg/dL (0.6-1.4); MAGNESIUM 2.5 mg/dL (1.6-3.0); PHOSPHOROUS 5.9 mg/dL (2.5-4.6); POTASSIUM 4.7 mmol/L (3.5-5.1); PROTEIN TOTAL SERUM 5.4 g/dL (6.0-8.3)
[2016-08-18 12:48] LABS: URINE APPEARANCE CLOUDY; URINE COLOR YELLOW
[2016-08-18 12:49] LABS: URINE BILIRUBIN NEG (NEG); URINE GLUCOSE NORM (NEG); URINE ICTOTEST NEG (NEG); URINE KETONE NEG (NEG); URINE LEUKOCYTE ESTERASE 3+ (NEG); URINE NITRATE NEG (NEG); URINE PROTEIN 2+ (NEG); URINE SPECIFIC GRAVITY 1.015 (1.003-1.035); URINE UROBILINOGEN NORM (NEG)
[2016-08-18 12:50] LABS: URINE BLOOD 4+ (NEG)
[2016-08-18 12:51] LABS: CULTURE INDICATED? YES; URBCS1 AUWI 25-50 /[HPF] (0-2); URINE BACTERIA AUWI 2+ (NEGATIVE); URINE SQUAMOUS EPITHELIAL CELL OCCAS /[HPF]; UWBCS1 AUWI 25-50 (0-5)
[2016-08-18 12:52] LABS: URINE MUCUS PRESENT; URINE YEAST PRESENT
[2016-08-18 13:03] LABS: CREATININE,RANDOM URINE 102 mg/dL; SODIUM URINE RANDOM 37 mmol/L
[2016-08-19 05:38] LABS: BASOPHIL% 0.1 % (0-2.5); EOSINOPHIL# 0.1 X10e3 (0-0.7); EOSINOPHIL% 0.9 % (0.0-7.0); HEMATOCRIT 31.1 % (35.0-45.0); HEMOGLOBIN 9.5 gm/dL (12.0-16.0); LYMPHOCYTE# 1.8 X10e3 (1.0-3.5); LYMPHOCYTE% 15.3 % (17.0-45.0); MEAN CELL VOLUME 82.3 FL (83-96); MEAN CORPUSCULAR HEMOGLOBIN 25.2 PG (28-34); MEAN CORPUSCULAR HGB CONC 30.6 g/dL (30-36); MEAN PLATELET VOLUME 9.8 FL (6.5-11.5); MONOCYTE# 0.9 X10e3 (0-1.0); MONOCYTE% 7.3 % (3.0-12.0); NEUTROPHIL% 76.4 % (40-75); PLATELET COUNT 247 X10e3 (140-420); RED BLOOD COUNT 3.78 X10e (3.90-5.30); RED CELL DISTRIBUTION WIDTH 21.7 % (11.0-15.5); WHITE BLOOD COUNT 11.8 X10e3 (4.0-10.5)
[2016-08-19 05:41] LABS: DIFF IND NO
[2016-08-19 06:36] LABS: ALBUMIN SERUM 1.7 g/dL (3.5-5.0); BILIRUBIN,TOTAL 0.3 mg/dL (0.2-2.0); BUN/CREATININE RATIO 27.5; CALCIUM SERUM 7.5 mg/dL (8.4-10.2); CREATININE SERUM 2.4 mg/dL (0.6-1.4); GLOM FILT RATE Estimated 24.1 mL/min (>60); MAGNESIUM 2.3 mg/dL (1.6-3.0); PHOSPHOROUS 5.5 mg/dL (2.5-4.6); POTASSIUM 5.2 mmol/L (3.5-5.1); PROTEIN TOTAL SERUM 5.1 g/dL (6.0-8.3)
[2016-08-20 04:02] LABS: ARTERIAL BLD GAS O2 SATURATION 93.2 % (90.0-100.0); ARTERIAL BLOOD GAS CARBOXY HB 1.2 %sat (0.0-9.0); ARTERIAL BLOOD GAS HCO3 28.4 mmol/L; ARTERIAL BLOOD GAS MET HB 0.9 %sat (0.0-2.0); ARTERIAL BLOOD GAS PCO2 37.8 mmHg (35.0-45.0); ARTERIAL BLOOD GAS pH 7.483 (7.350-7.450)
[2016-08-20 04:15] LABS: ARTERIAL BLOOD GAS ALLEN TEST NORMAL; ARTERIAL BLOOD GAS ART SITE LEFT RADIAL; ARTERIAL BLOOD GAS DELIVERY VENT; ARTERIAL BLOOD GAS PO2 72.2 mmHg (80.0-100); ARTERIAL BLOOD GAS VENT MODE AC; ARTERIAL DRAW? YES
[2016-08-20 05:21] LABS: BASOPHIL% 0.2 % (0-2.5); EOSINOPHIL# 0.3 X10e3 (0-0.7); EOSINOPHIL% 2.2 % (0.0-7.0); HEMATOCRIT 30.4 % (35.0-45.0); HEMOGLOBIN 9.3 gm/dL (12.0-16.0); LYMPHOCYTE# 2.9 X10e3 (1.0-3.5); LYMPHOCYTE% 24.3 % (17.0-45.0); MEAN CELL VOLUME 81.3 FL (83-96); MEAN CORPUSCULAR HEMOGLOBIN 24.8 PG (28-34); MEAN CORPUSCULAR HGB CONC 30.4 g/dL (30-36); MEAN PLATELET VOLUME 10.5 FL (6.5-11.5); MONOCYTE# 0.9 X10e3 (0-1.0); MONOCYTE% 7.9 % (3.0-12.0); NEUTROPHIL# 7.8 X10e3 (1.5-7.1); NEUTROPHIL% 65.4 % (40-75); PLATELET COUNT 216 X10e3 (140-420); RED BLOOD COUNT 3.74 X10e (3.90-5.30); RED CELL DISTRIBUTION WIDTH 21.1 % (11.0-15.5); WHITE BLOOD COUNT 11.9 X10e3 (4.0-10.5)
[2016-08-20 05:39] LABS: DIFF IND NO
[2016-08-20 06:27] LABS: BUN/CREATININE RATIO 26.53; CALCIUM SERUM 7.1 mg/dL (8.4-10.2); CREATININE SERUM 2.6 mg/dL (0.6-1.4); GLOM FILT RATE Estimated 21.9 mL/min (>60); MAGNESIUM 2.4 mg/dL (1.6-3.0); PHOSPHOROUS 5.8 mg/dL (2.5-4.6)
[2016-08-21 03:59] LABS: ARTERIAL BLD GAS O2 SATURATION 92.6 % (90.0-100.0); ARTERIAL BLOOD GAS CARBOXY HB 1.2 %sat (0.0-9.0); ARTERIAL BLOOD GAS HCO3 29.1 mmol/L; ARTERIAL BLOOD GAS MET HB 0.7 %sat (0.0-2.0); ARTERIAL BLOOD GAS PCO2 37.9 mmHg (35.0-45.0); ARTERIAL BLOOD GAS pH 7.494 (7.350-7.450)
[2016-08-21 04:00] LABS: ARTERIAL BLOOD GAS ALLEN TEST NORMAL; ARTERIAL BLOOD GAS ART SITE LEFT RADIAL; ARTERIAL BLOOD GAS DELIVERY VENT; ARTERIAL BLOOD GAS PO2 68.4 mmHg (80.0-100); ARTERIAL BLOOD GAS VENT MODE AC; ARTERIAL DRAW? YES
[2016-08-21 04:29] LABS: BASOPHIL% 0.2 % (0-2.5); EOSINOPHIL# 0.2 X10e3 (0-0.7); EOSINOPHIL% 1.9 % (0.0-7.0); HEMATOCRIT 29.9 % (35.0-45.0); HEMOGLOBIN 9.2 gm/dL (12.0-16.0); LYMPHOCYTE# 1.5 X10e3 (1.0-3.5); LYMPHOCYTE% 14.5 % (17.0-45.0); MEAN CELL VOLUME 81.6 FL (83-96); MEAN CORPUSCULAR HEMOGLOBIN 25.2 PG (28-34); MEAN CORPUSCULAR HGB CONC 30.9 g/dL (30-36); MEAN PLATELET VOLUME 10.1 FL (6.5-11.5); MONOCYTE# 0.6 X10e3 (0-1.0); MONOCYTE% 5.8 % (3.0-12.0); NEUTROPHIL# 8.1 X10e3 (1.5-7.1); NEUTROPHIL% 77.6 % (40-75); PLATELET COUNT 177 X10e3 (140-420); RED BLOOD COUNT 3.66 X10e (3.90-5.30); RED CELL DISTRIBUTION WIDTH 20.8 % (11.0-15.5); WHITE BLOOD COUNT 10.5 X10e3 (4.0-10.5)
[2016-08-21 04:30] LABS: DIFF IND NO
[2016-08-21 04:52] LABS: ALBUMIN SERUM 2.4 g/dL (3.5-5.0); BILIRUBIN,TOTAL 0.6 mg/dL (0.2-2.0); BUN/CREATININE RATIO 24.28; CALCIUM SERUM 7.8 mg/dL (8.4-10.2); CREATININE SERUM 2.1 mg/dL (0.6-1.4); GLOM FILT RATE Estimated 28.3 mL/min (>60); MAGNESIUM 2.2 mg/dL (1.6-3.0); PHOSPHOROUS 4.7 mg/dL (2.5-4.6); PROTEIN TOTAL SERUM 5.7 g/dL (6.0-8.3)
[2016-08-21 08:07] LABS: ARTERIAL BLD GAS O2 SATURATION 87.5 % (90.0-100.0); ARTERIAL BLOOD GAS CARBOXY HB 1.1 %sat (0.0-9.0); ARTERIAL BLOOD GAS HCO3 28.7 mmol/L; ARTERIAL BLOOD GAS PCO2 37.7 mmHg (35.0-45.0)
[2016-08-21 08:22] LABS: ARTERIAL BLOOD GAS ART SITE LEFT BRACHIAL; ARTERIAL BLOOD GAS DELIVERY VENT; ARTERIAL BLOOD GAS PO2 51.7 mmHg (80.0-100); ARTERIAL BLOOD GAS VENT MODE CPAP; ARTERIAL DRAW? YES
[2016-08-22 03:54] LABS: BASOPHIL% 0.2 % (0-2.5); EOSINOPHIL# 0.2 X10e3 (0-0.7); EOSINOPHIL% 2.2 % (0.0-7.0); HEMATOCRIT 28.9 % (35.0-45.0); LYMPHOCYTE# 2.8 X10e3 (1.0-3.5); LYMPHOCYTE% 27.3 % (17.0-45.0); MEAN CORPUSCULAR HEMOGLOBIN 25.5 PG (28-34); MEAN CORPUSCULAR HGB CONC 31.1 g/dL (30-36); MEAN PLATELET VOLUME 10.5 FL (6.5-11.5); MONOCYTE# 0.8 X10e3 (0-1.0); MONOCYTE% 7.5 % (3.0-12.0); NEUTROPHIL# 6.5 X10e3 (1.5-7.1); NEUTROPHIL% 62.8 % (40-75); PLATELET COUNT 174 X10e3 (140-420); RED BLOOD COUNT 3.53 X10e (3.90-5.30); RED CELL DISTRIBUTION WIDTH 20.7 % (11.0-15.5); WHITE BLOOD COUNT 10.3 X10e3 (4.0-10.5)
[2016-08-22 03:55] LABS: DIFF IND NO
[2016-08-22 04:01] LABS: ARTERIAL BLD GAS O2 SATURATION 94.9 % (90.0-100.0); ARTERIAL BLOOD GAS CARBOXY HB 1.1 %sat (0.0-9.0); ARTERIAL BLOOD GAS MET HB 0.7 %sat (0.0-2.0); ARTERIAL BLOOD GAS PCO2 34.5 mmHg (35.0-45.0); ARTERIAL BLOOD GAS pH 7.486 (7.350-7.450)
[2016-08-22 04:03] LABS: ARTERIAL BLOOD GAS ART SITE LEFT BRACHIAL; ARTERIAL BLOOD GAS DELIVERY VENT; ARTERIAL BLOOD GAS PO2 79.2 mmHg (80.0-100); ARTERIAL BLOOD GAS VENT MODE AC; ARTERIAL DRAW? YES
[2016-08-22 04:27] LABS: ALBUMIN SERUM 2.9 g/dL (3.5-5.0); BILIRUBIN,TOTAL 0.3 mg/dL (0.2-2.0); BUN/CREATININE RATIO 17.89; CALCIUM SERUM 8.3 mg/dL (8.4-10.2); CREATININE SERUM 1.9 mg/dL (0.6-1.4); MAGNESIUM 2.2 mg/dL (1.6-3.0); PHOSPHOROUS 4.3 mg/dL (2.5-4.6); POTASSIUM 3.7 mmol/L (3.5-5.1)
[2016-08-22 08:15] LABS: ARTERIAL BLD GAS O2 SATURATION 92.2 % (90.0-100.0); ARTERIAL BLOOD GAS HCO3 26.2 mmol/L; ARTERIAL BLOOD GAS MET HB 0.7 %sat (0.0-2.0); ARTERIAL BLOOD GAS PCO2 38.4 mmHg (35.0-45.0); ARTERIAL BLOOD GAS pH 7.442 (7.350-7.450)
[2016-08-22 08:16] LABS: ARTERIAL BLOOD GAS ALLEN TEST NORMAL; ARTERIAL BLOOD GAS ART SITE LEFT RADIAL; ARTERIAL BLOOD GAS PO2 71.6 mmHg (80.0-100); ARTERIAL BLOOD GAS VENT MODE CPAP; ARTERIAL DRAW? YES
[2016-08-23 05:27] LABS: BASOPHIL% 0.3 % (0-2.5); EOSINOPHIL# 0.1 X10e3 (0-0.7); HEMOGLOBIN 8.5 gm/dL (12.0-16.0); LYMPHOCYTE# 3.6 X10e3 (1.0-3.5); LYMPHOCYTE% 28.6 % (17.0-45.0); MEAN CELL VOLUME 82.8 FL (83-96); MEAN CORPUSCULAR HEMOGLOBIN 25.2 PG (28-34); MEAN CORPUSCULAR HGB CONC 30.5 g/dL (30-36); MEAN PLATELET VOLUME 10.7 FL (6.5-11.5); MONOCYTE# 0.8 X10e3 (0-1.0); MONOCYTE% 6.6 % (3.0-12.0); NEUTROPHIL% 63.5 % (40-75); PLATELET COUNT 163 X10e3 (140-420); RED BLOOD COUNT 3.39 X10e (3.90-5.30); RED CELL DISTRIBUTION WIDTH 20.6 % (11.0-15.5); WHITE BLOOD COUNT 12.6 X10e3 (4.0-10.5)
[2016-08-23 05:41] LABS: DIFF IND NO
[2016-08-23 06:06] LABS: ALBUMIN SERUM 2.5 g/dL (3.5-5.0); BILIRUBIN,TOTAL 0.5 mg/dL (0.2-2.0); BUN/CREATININE RATIO 17.22; CALCIUM SERUM 8.4 mg/dL (8.4-10.2); CREATININE SERUM 1.8 mg/dL (0.6-1.4); GLOM FILT RATE Estimated 34.1 mL/min (>60); MAGNESIUM 2.1 mg/dL (1.6-3.0); POTASSIUM 3.4 mmol/L (3.5-5.1); PROTEIN TOTAL SERUM 5.4 g/dL (6.0-8.3)
[2016-08-24 05:15] LABS: BASOPHIL# 0.1 X10e3 (0-0.3); BASOPHIL% 0.4 % (0-2.5); EOSINOPHIL# 0.2 X10e3 (0-0.7); EOSINOPHIL% 1.6 % (0.0-7.0); HEMATOCRIT 28.4 % (35.0-45.0); HEMOGLOBIN 8.7 gm/dL (12.0-16.0); LYMPHOCYTE# 1.2 X10e3 (1.0-3.5); LYMPHOCYTE% 8.5 % (17.0-45.0); MEAN CELL VOLUME 82.2 FL (83-96); MEAN CORPUSCULAR HEMOGLOBIN 25.1 PG (28-34); MEAN CORPUSCULAR HGB CONC 30.5 g/dL (30-36); MEAN PLATELET VOLUME 10.4 FL (6.5-11.5); MONOCYTE# 0.4 X10e3 (0-1.0); MONOCYTE% 2.6 % (3.0-12.0); NEUTROPHIL# 12.6 X10e3 (1.5-7.1); NEUTROPHIL% 86.9 % (40-75); PLATELET COUNT 177 X10e3 (140-420); RED BLOOD COUNT 3.45 X10e (3.90-5.30); RED CELL DISTRIBUTION WIDTH 20.1 % (11.0-15.5); WHITE BLOOD COUNT 14.5 X10e3 (4.0-10.5)
[2016-08-24 05:26] LABS: DIFF IND NO
[2016-08-24 07:01] LABS: BUN/CREATININE RATIO 18.23; CALCIUM SERUM 8.6 mg/dL (8.4-10.2); CREATININE SERUM 1.7 mg/dL (0.6-1.4); GLOM FILT RATE Estimated 36.6 mL/min (>60); POTASSIUM 4.4 mmol/L (3.5-5.1)
[2016-08-24 11:02] LABS: URINE APPEARANCE CLEAR; URINE BILIRUBIN NEG (NEG); URINE BLOOD 3+ (NEG); URINE COLOR YELLOW; URINE GLUCOSE NEG (NEG); URINE KETONE NEG (NEG); URINE LEUKOCYTE ESTERASE 1+ (NEG); URINE NITRATE NEG (NEG); URINE PROTEIN 3+ (NEG); URINE SPECIFIC GRAVITY 1.014 (1.003-1.035); URINE UROBILINOGEN 0.2 MG/DL (NEG)
[2016-08-24 11:04] LABS: CULTURE INDICATED? YES; URBCS1 AUWI 200-300 /[HPF] (0-2); URINE BACTERIA AUWI NEG (NEGATIVE); URINE SQUAMOUS EPITHELIAL CELL OCC /[HPF]
[2016-08-24 11:47] LABS: U HYALINE CASTS AUWI 0-2 /[LPF]; URINE YEAST PRESENT
[2016-08-25 06:05] LABS: BASOPHIL# 0.1 X10e3 (0-0.3); BASOPHIL% 0.6 % (0-2.5); EOSINOPHIL# 0.3 X10e3 (0-0.7); EOSINOPHIL% 1.9 % (0.0-7.0); HEMATOCRIT 27.8 % (35.0-45.0); HEMOGLOBIN 8.6 gm/dL (12.0-16.0); LYMPHOCYTE# 3.7 X10e3 (1.0-3.5); LYMPHOCYTE% 24.5 % (17.0-45.0); MEAN CELL VOLUME 82.7 FL (83-96); MEAN CORPUSCULAR HEMOGLOBIN 25.5 PG (28-34); MEAN CORPUSCULAR HGB CONC 30.9 g/dL (30-36); MEAN PLATELET VOLUME 10.4 FL (6.5-11.5); MONOCYTE# 0.8 X10e3 (0-1.0); MONOCYTE% 5.3 % (3.0-12.0); NEUTROPHIL# 10.3 X10e3 (1.5-7.1); NEUTROPHIL% 67.7 % (40-75); PLATELET COUNT 166 X10e3 (140-420); RED BLOOD COUNT 3.36 X10e (3.90-5.30); RED CELL DISTRIBUTION WIDTH 19.9 % (11.0-15.5); WHITE BLOOD COUNT 15.2 X10e3 (4.0-10.5)
[2016-08-25 06:14] LABS: DIFF IND YES
[2016-08-25 06:45] LABS: ALBUMIN SERUM 2.9 g/dL (3.5-5.0); BILIRUBIN,TOTAL 0.4 mg/dL (0.2-2.0); BUN/CREATININE RATIO 26.66; CALCIUM SERUM 8.7 mg/dL (8.4-10.2); CREATININE SERUM 2.1 mg/dL (0.6-1.4); GLOM FILT RATE Estimated 28.3 mL/min (>60); MAGNESIUM 1.9 mg/dL (1.6-3.0); PHOSPHOROUS 4.1 mg/dL (2.5-4.6); POTASSIUM 3.6 mmol/L (3.5-5.1)
[2016-08-25 07:25] LABS: ANISOCYTOSIS MOD; PLATELET ESTIMATE NORMAL (NORMAL)
[2016-08-25 07:26] LABS: TARGET CELLS SL
[2016-08-25 07:31] LABS: MICROCYTOSIS SL
[2016-08-25 07:38] LABS: POIKILOCYTOSIS SL
[2016-08-26 04:30] LABS: ARTERIAL BLD GAS O2 SATURATION 98.3 % (90.0-100.0); ARTERIAL BLOOD GAS CARBOXY HB 0.8 %sat (0.0-9.0); ARTERIAL BLOOD GAS HCO3 25.2 mmol/L; ARTERIAL BLOOD GAS MET HB 0.5 %sat (0.0-2.0); ARTERIAL BLOOD GAS PCO2 35.9 mmHg (35.0-45.0); ARTERIAL BLOOD GAS pH 7.455 (7.350-7.450)
[2016-08-26 04:32] LABS: ARTERIAL BLOOD GAS ALLEN TEST NORMAL; ARTERIAL BLOOD GAS ART SITE RIGHT RADIAL; ARTERIAL DRAW? YES
[2016-08-26 05:20] LABS: HEMOGLOBIN 8.4 gm/dL (12.0-16.0); MEAN CELL VOLUME 81.4 FL (83-96); MEAN CORPUSCULAR HEMOGLOBIN 25.3 PG (28-34); MEAN CORPUSCULAR HGB CONC 31.1 g/dL (30-36); RED BLOOD COUNT 3.32 X10e (3.90-5.30); RED CELL DISTRIBUTION WIDTH 19.6 % (11.0-15.5); WHITE BLOOD COUNT 14.2 X10e3 (4.0-10.5)
[2016-08-26 05:55] LABS: ALBUMIN SERUM 2.9 g/dL (3.5-5.0); BILIRUBIN,TOTAL 0.5 mg/dL (0.2-2.0); CALCIUM SERUM 8.6 mg/dL (8.4-10.2); MAGNESIUM 1.8 mg/dL (1.6-3.0); POTASSIUM 3.4 mmol/L (3.5-5.1); PROTEIN TOTAL SERUM 6.5 g/dL (6.0-8.3)
[2016-08-27 05:51] LABS: HEMATOCRIT 28.4 % (35.0-45.0); HEMOGLOBIN 8.7 gm/dL (12.0-16.0); MEAN CELL VOLUME 81.8 FL (83-96); MEAN CORPUSCULAR HEMOGLOBIN 25.1 PG (28-34); MEAN CORPUSCULAR HGB CONC 30.7 g/dL (30-36); MEAN PLATELET VOLUME 9.7 FL (6.5-11.5); RED BLOOD COUNT 3.47 X10e (3.90-5.30); RED CELL DISTRIBUTION WIDTH 19.1 % (11.0-15.5); WHITE BLOOD COUNT 12.7 X10e3 (4.0-10.5)
[2016-08-27 06:38] LABS: ALBUMIN SERUM 3.1 g/dL (3.5-5.0); BILIRUBIN,TOTAL 0.4 mg/dL (0.2-2.0); BUN/CREATININE RATIO 38.94; CALCIUM SERUM 8.9 mg/dL (8.4-10.2); CREATININE SERUM 1.9 mg/dL (0.6-1.4); MAGNESIUM 1.8 mg/dL (1.6-3.0); PHOSPHOROUS 4.7 mg/dL (2.5-4.6); POTASSIUM 3.7 mmol/L (3.5-5.1); PROTEIN TOTAL SERUM 6.7 g/dL (6.0-8.3)
[2016-08-28 05:43] LABS: HEMATOCRIT 26.8 % (35.0-45.0); HEMOGLOBIN 8.4 gm/dL (12.0-16.0); MEAN CELL VOLUME 81.7 FL (83-96); MEAN CORPUSCULAR HEMOGLOBIN 25.6 PG (28-34); MEAN CORPUSCULAR HGB CONC 31.3 g/dL (30-36); MEAN PLATELET VOLUME 9.7 FL (6.5-11.5); RED BLOOD COUNT 3.29 X10e (3.90-5.30); RED CELL DISTRIBUTION WIDTH 19.4 % (11.0-15.5)
[2016-08-28 06:45] LABS: CALCIUM SERUM 8.4 mg/dL (8.4-10.2); CREATININE SERUM 1.8 mg/dL (0.6-1.4); GLOM FILT RATE Estimated 34.1 mL/min (>60); MAGNESIUM 1.7 mg/dL (1.6-3.0); PHOSPHOROUS 4.4 mg/dL (2.5-4.6); POTASSIUM 3.6 mmol/L (3.5-5.1)
[2016-08-29 11:43] LABS: BUN/CREATININE RATIO 35.78; CALCIUM SERUM 8.3 mg/dL (8.4-10.2); CREATININE SERUM 1.9 mg/dL (0.6-1.4); POTASSIUM 4.1 mmol/L (3.5-5.1)
[2016-08-30 07:55] LABS: ARTERIAL BLD GAS O2 SATURATION 96.5 % (90.0-100.0); ARTERIAL BLOOD GAS CARBOXY HB 0.7 %sat (0.0-9.0); ARTERIAL BLOOD GAS HCO3 28.7 mmol/L; ARTERIAL BLOOD GAS PCO2 38.9 mmHg (35.0-45.0); ARTERIAL BLOOD GAS PO2 83.8 mmHg (80.0-100); ARTERIAL BLOOD GAS pH 7.476 (7.350-7.450)
[2016-08-30 07:58] LABS: ARTERIAL BLOOD GAS ALLEN TEST NORMAL; ARTERIAL BLOOD GAS ART SITE LEFT RADIAL; ARTERIAL BLOOD GAS DELIVERY NASAL CANNULA; ARTERIAL BLOOD GAS LITER FLOW 1.5; ARTERIAL DRAW? YES
[2016-08-30 09:05] LABS: HEMATOCRIT 27.9 % (35.0-45.0); HEMOGLOBIN 8.6 gm/dL (12.0-16.0); MEAN CELL VOLUME 82.7 FL (83-96); MEAN CORPUSCULAR HEMOGLOBIN 25.4 PG (28-34); MEAN CORPUSCULAR HGB CONC 30.7 g/dL (30-36); RED BLOOD COUNT 3.37 X10e (3.90-5.30); RED CELL DISTRIBUTION WIDTH 18.8 % (11.0-15.5); WHITE BLOOD COUNT 8.2 X10e3 (4.0-10.5)
[2016-08-30 09:35] LABS: ALBUMIN SERUM 2.9 g/dL (3.5-5.0); BILIRUBIN,TOTAL 0.7 mg/dL (0.2-2.0); BUN/CREATININE RATIO 34.44; CALCIUM SERUM 8.6 mg/dL (8.4-10.2); CREATININE SERUM 1.8 mg/dL (0.6-1.4); GLOM FILT RATE Estimated 34.1 mL/min (>60); MAGNESIUM 1.7 mg/dL (1.6-3.0); PHOSPHOROUS 5.1 mg/dL (2.5-4.6); POTASSIUM 4.1 mmol/L (3.5-5.1); PROTEIN TOTAL SERUM 6.5 g/dL (6.0-8.3)
== END 2016-08-31 16:00 | DRG 166 ==
LOC: CED 07:19 → CICCU2 10:34 → CEDOF 10:34 → CED 10:40 → CEDOF 10:40 → C3A PCU 16:00 → CICCU2 08-11 10:54 → C3A PCU 08-24 18:28
PROVIDERS: Internal Medicine; Internal Medicine Cardiovascular Disease; Internal Medicine Nephrology; Internal Medicine Pulmonary Disease; Nurse Practitioner; Nurse Practitioner Family
PROC: B24BYZZ Ultrasonography of Heart with Aorta using Other Contrast (ICD-10-PCS; 2016-08-09)
PROC: 0BH17EZ Insertion of Endotracheal Airway into Trachea, Via Natural or Artificial Opening (ICD-10-PCS; principal; 2016-08-12)
PROC: 5A1955Z Respiratory Ventilation, Greater than 96 Consecutive Hours (ICD-10-PCS; 2016-08-12)
PROC: 0B9M8ZX Drainage of Bilateral Lungs, Via Natural or Artificial Opening Endoscopic, Diagnostic (ICD-10-PCS; 2016-08-13)
PROC: 0B9J8ZX Drainage of Left Lower Lung Lobe, Via Natural or Artificial Opening Endoscopic, Diagnostic (ICD-10-PCS; 2016-08-13 11:30)
PROC: 0BH17EZ Insertion of Endotracheal Airway into Trachea, Via Natural or Artificial Opening (ICD-10-PCS; 2016-08-16)
PROC: 5A1955Z Respiratory Ventilation, Greater than 96 Consecutive Hours (ICD-10-PCS; 2016-08-16)
PROC: 05HN33Z Insertion of Infusion Device into Left Internal Jugular Vein, Percutaneous Approach (ICD-10-PCS; 2016-08-18)
PROC: B544ZZA Ultrasonography of Left Jugular Veins, Guidance (ICD-10-PCS; 2016-08-18)
PROC: 5A1D60Z (ICD-10-PCS; 2016-08-18)
DX: J96.21 Acute and chronic respiratory failure with hypoxia (principal); N17.0 Acute kidney failure with tubular necrosis; A41.9 Sepsis, unspecified organism; I50.23 Acute on chronic systolic (congestive) heart failure; J15.212 Pneumonia due to Methicillin resistant Staphylococcus aureus; I47.2 Ventricular tachycardia; E87.5 Hyperkalemia; N18.3 Chronic kidney disease, stage 3 (moderate); B37.49 Other urogenital candidiasis; I13.0 Hypertensive heart and chronic kidney disease with heart failure and stage 1 through stage 4 chronic kidney disease, or unspecified chronic kidney disease; J44.0 Chronic obstructive pulmonary disease with (acute) lower respiratory infection; J44.1 Chronic obstructive pulmonary disease with (acute) exacerbation; L03.90 Cellulitis, unspecified; N39.0 Urinary tract infection, site not specified; E11.22 Type 2 diabetes mellitus with diabetic chronic kidney disease; D50.9 Iron deficiency anemia, unspecified; F32.9 Major depressive disorder, single episode, unspecified; F17.210 Nicotine dependence, cigarettes, uncomplicated; M48.06 Spinal stenosis, lumbar region; F25.9 Schizoaffective disorder, unspecified; E78.5 Hyperlipidemia, unspecified; E87.6 Hypokalemia; G47.33 Obstructive sleep apnea (adult) (pediatric); Z90.710 Acquired absence of both cervix and uterus; Z85.118 Personal history of other malignant neoplasm of bronchus and lung; Z90.49 Acquired absence of other specified parts of digestive tract; Z79.4 Long term (current) use of insulin; F41.9 Anxiety disorder, unspecified; Z79.82 Long term (current) use of aspirin; M94.0 Chondrocostal junction syndrome [Tietze]; Z98.42 Cataract extraction status, left eye; Z98.41 Cataract extraction status, right eye; I25.2 Old myocardial infarction; R59.1 Generalized enlarged lymph nodes; E66.01 Morbid (severe) obesity due to excess calories; D63.1 Anemia in chronic kidney disease; E83.51 Hypocalcemia; B96.20 Unspecified Escherichia coli [E. coli] as the cause of diseases classified elsewhere; Z68.35 Body mass index [BMI] 35.0-35.9, adult
CPT/HCPCS: 36600; 71010; 71035; 71250; 74000; 74230; 80048; 80053; 80076; 80202; 81003; 82150; 82306; 82310; 82330; 82550; 82553; 82570; 82607; 82652; 82728; 82746; 82803; 82947; 83540; 83550; 83605; 83690; 83735; 83880; 83970; 84100; 84132; 84156; 84300; 84443; 84484; 85025; 85027; 85610; 85730; 87040; 87070; 87077; 87086; 87088; 87102; 87106; 87116; 87186; 87205; 87206; 87252; 87254; 87278; 87340; 87493; 88108; 88305; 88312; 89051; 92526; 92610; 92611; 93005; 93306; 94002; 94003; 94640; 94660; 94760; 94761; 96374; 97110; 97116; 97163; 97167; 97530; 97535; 99291; C1750; C9113; G8978-GP; G8979-GP; G8987-GO; G8988-GO; G8996-GN; G8997-GN; G8998-GN; J0171; J0330; J0610; J0696; J1250; J1450; J1642; J1644; J1650; J1815; J1956; J2020; J2250; J2270; J2310; J2405; J2920; J2930; J2997; J3010; J3370; J3475; J3480; P9047; Q4081

== ENCOUNTER 2016-09-26 10:59 | Inpatient (IN) | payer OTHER ==
[~2016-09-26] VITALS: Ht 160 cm; Wt 75.0 kg
--- NOTE | ~2016-09-26 | HP ---
Unit #: [id number] #: [id number] Patient: JULIO JIMENEZ [id number] [facility]. [place], [place] [address] [id number] E MR#: [id number] NAME: JULIO JIMENEZ ROOM: Age: 61 Sex: F Admission Date: 09/26/2016 : 1955 Attending Physician: Vadim Atwood Primary Care Physician: Liv Richardson M.D. HISTORY AND PHYSICAL CHIEF COMPLAINT Altered mental status. HISTORY OF PRESENT ILLNESS The patient is a 61-year-old female with past medical history of multiple medical problems including chronic kidney disease, COPD, lung cancer, hypertension, hyperlipidemia, CHF, TIA, diabetes, schizoaffective disorder, obstructive sleep apnea, pancreatitis, dementia who presented to the emergency department for evaluation of the above. History is obtained from chart review and discussion with ER staff due to the patient's altered mental status. The patient denies pain currently. There was some concern that she may have taken too much pain medication. The patient denies cough or fever. No abdominal pain. In the emergency department, initial oxygen saturation was 87% on room air. Temperature 98.9. Laboratory notable for findings concerning for a urinary tract infection. BUN and creatinine 41 and 2.9 respectively. Ammonia level is 46. She was given 2 mg of Narcan as well as a liter of normal saline in the emergency department. She is being admitted to [facility] for evaluation and further treatment. PAST MEDICAL HISTORY 1. Admission to [facility], August 09 through August 31, 2016 for acute on chronic respiratory failure, acute on chronic kidney disease requiring temporary dialysis, CHF. She apparently had an echocardiogram during that admission. There are no results in [facility] nor on the discharge summary. She also was noted to have VRE urinary tract infection. She also had acute respiratory failure requiring intubation. She was discharged to rehab. It is unclear when she returned home. 2. Chronic kidney disease, stage 3 with a baseline creatinine of 1.3. The patient has seen Dr. Yang in the past. 3. COPD, not on home oxygen. The patient has seen Dr. Mcneill in the past. 4. History of lung cancer, status post lobectomy. 5. Hypertension. 6. Hyperlipidemia. 7. Congestive heart failure with ejection fraction of 45% to 50% noted on echocardiogram November 30, 2012; however, the patient did have an echocardiogram last month (report not in [facility]). 8. TIA. 9. Diabetes. 10. Schizoaffective disorder. Unit #: [id number] #: [id number] Patient: JULIO JIMENEZ 11. Obstructive sleep apnea, not on CPAP. 12. Pancreatitis. 13. Dementia. PAST SURGICAL HISTORY 1. Cholecystectomy. 2. Lobectomy. 3. Partial thyroidectomy. 4. Hysterectomy. 5. Colonoscopy. 6. Bronchoscopy. SOCIAL HISTORY Per chart review, the patient lives with family. I am unable to confirm this with the patient at the present time. Again per chart review, the patient smokes a pack of cigarettes daily. She walks with a cane. FAMILY HISTORY Notable for her mother having chronic kidney disease. ALLERGIES No known allergies. HOME MEDICATIONS 1. Donepezil 10 mg daily. 2. [place] 7.5/325 q.8 hours p.r.n. 3. Humalog 75/25 at 45 units twice daily. 4. Mirtazapine 7.5 mg daily. 5. Zoloft 200 mg daily. 6. Calcitriol 0.5 mcg daily. 7. Seroquel 400 mg at bedtime. 8. Humalog sliding scale. 9. Hydralazine 100 mg t.i.d. 10. Isosorbide 20 mg twice daily. 11. Linzess 290 mcg daily. 12. Prilosec 40 mg daily. 13. Potassium 10 mEq daily. 14. Tylenol #3 t.i.d. p.r.n. REVIEW OF SYSTEMS A complete review of systems is negative except as indicated in the HPI but somewhat limited due to altered mental status. DIAGNOSTIC STUDIES LABORATORY: Complete blood count notable for hemoglobin and hematocrit of 10.8 and 34.9 respectively. Comprehensive metabolic panel notable for CO2 of 21. Anion gap is 14. BUN and creatinine 41 and 2.9 respectively. Alkaline phosphatase 129, albumin 2.7. Alcohol level is less than 5. Arterial blood gas shows pH of 7.289, pCO2 of 42, pO2 of 114 on 2 L. Ammonia level is 46. Urinalysis notable for 3+ leukocyte esterase, 3+ protein, 2+ blood, 5-10 red blood cells, innumerable white blood cells, 4+ bacteria, moderate squamous cells. IMAGING: Chest x-ray shows nothing acute. CT of the head shows nothing acute. CARDIOVASCULAR: EKG shows normal sinus rhythm with a rate of 89 beats per Unit #: [id number] #: [id number] Patient: JULIO JIMENEZ. PHYSICAL EXAMINATION VITAL SIGNS: Temperature 98.9, pulse 91, respirations 19, blood pressure 123/74, oxygen saturation initially 87% on room air (now 94% on 2 L). GENERAL: The patient is an -Azerbaijani female who is lethargic but opens eyes to physical stimuli. HEENT: The head is atraumatic. Mucous membranes are dry. NECK: Supple. Trachea is midline. CARDIOVASCULAR: Regular rate and rhythm. LUNGS: Clear to auscultation bilaterally with no increased work of breathing. ABDOMEN: Soft, nontender with bowel sounds present in all four quadrants. EXTREMITIES: Nontender with no pedal edema. NEUROLOGIC: The patient is oriented to person only. She is moving all extremities. She follows commands. PSYCHIATRIC: The patient is cooperative. She is somewhat lethargic. SKIN: Skin of examined areas is warm and dry. ASSESSMENT The patient is a 61-year-old female with: 1. Altered mental status secondary to #2. 2. Urinary tract infection: The patient has a history of vancomycin-resistant enterococcus as documented on urine culture August 11, 2016. The most recent culture from August 18, 2016 grew greater than 100,000 Escherichia coli that was sensitive to Rocephin. 3. Acute on chronic kidney disease: The patient received 1 L of normal saline in the emergency department. The patient's baseline creatinine is 1.[address] Yang's consultation note dated August 25, 2016. Creatinine is 2.9 today. It was 1.8 on August 30, 2016. 4. Acute respiratory failure, hypoxic. 5. Chronic obstructive pulmonary disease with continued tobacco abuse. 6. History of lung cancer, status post lobectomy. 7. Hypertension. 8. Hyperlipidemia. 9. Congestive heart failure with ejection fraction of 45% to 50% noted on echocardiogram October 31, 2012. 10. Transient ischemic attack. 11. Diabetes. 12. Schizoaffective disorder. 13. Obstructive sleep apnea, not on CPAP. 14. Pancreatitis. 15. Dementia. PLAN 1. Admit to intermediate level. 2. NPO until more awake and passes bedside swallow. 3. Normal saline at 75 mL/hr. 4. Get echocardiogram report. 5. Bedrest. 6. Fall precautions. 7. Neuro checks. 8. Will hold medications that could be contributing to altered mental status. 9. TSH, B12, and folate. 10. Blood cultures x2. 11. Urine culture and sensitivity on urine in the lab. 12. Linezolid and Rocephin pending results of urine culture. Unit #: [id number] #: [id number] Patient: JULIO JIMENEZ 13. Strict ins and outs. 14. Consult Dr. Yang regarding acute on chronic kidney disease. 15. Supplemental oxygen. 16. P.r.n. DuoNeb. 17. Serial cardiac enzymes. 18. Hemoglobin A1c. 19. Low-dose sliding scale insulin with Accu-Cheks. 20. Physical therapy/occupational therapy to evaluate and treat. 21. Sequential compression devices for deep venous thrombosis prophylaxis. 22. Repeat labs in the morning including ammonia. Dictated by Maye Valentine M.D. JAMILA/esvin TD: 09/26/2016 15:21 JOB #: [id number] HISTORY AND PHYSICAL Page 1 of 1 X Maye Valentine MD X HISTORY AND PHYSICAL
--- NOTE | ~2016-09-26 | CO ---
Unit #: [id number] #: [id number] Patient: JULIO JIMENEZ [id number] [address] [place], [place] [address] [id number] I MR#: [id number] NAME: JULIO JIMENEZ ROOM: 325 Age: 61 Sex: F Admission Date: 09/26/2016 : 1955 Attending Physician: Tiago Hooks M.D. Primary Care Physician: Liv Richardson M.D. CONSULTATION REPORT REASON FOR CONSULTATION ESBL E. coli UTI. HISTORY OF PRESENT ILLNESS Ms. Jimenez is a 61-year-old female with a past medical history of multiple medical problems including chronic kidney disease, COPD, lung cancer, hypertension, hyperlipidemia, CHF, TIA, diabetes, schizoaffective disorder, obstructive sleep apnea, pancreatitis, with dementia who presented to the ER, who was admitted on September 26, 2016, due to altered mental status. Much of information was obtained from the chart because patient is a poor historian and unable to provide much history. She stated that she was just sleeping all the time and she lives with her daughter who then decide to bring her in because she was sleeping a lot. Her complaints are very vague, complaining of chest pain, diarrhea, shortness of breath, nausea, dysuria, fevers and chills although no specific details. At this point, she is alert and oriented and is asking when she is able to go home. She says that she feels a lot better and that she is more awake and that she feels ready that she is able to be discharged. We are now being consulted for a urinalysis that was checked that was positive for numerous white blood cells and the urine culture grew ESBL E. coli. She has been started on meropenem and was also on vancomycin, as well as Rocephin, which has since been DC'd. She stated that when she came into the ER, she had given them a urine sample by urinating into a bedpan. She is in no apparent distress, has remained afebrile since admission with no leukocytosis. PAST MEDICAL HISTORY Significant for: 1. Recent admission to [facility] on August 09 through August 31 for chronic respiratory failure, acute on chronic kidney disease requiring temporary dialysis and CHF. 2. Also, history of chronic kidney disease. 3. COPD. 4. History of lung cancer, status post lumpectomy. 5. Hypertension. 6. Hyperlipidemia. 7. CHF. 8. TIA. 9. Diabetes. 10. Schizophrenic disorder. 11. Obstructive sleep apnea. 12. Pancreatitis. 13. Dementia. Unit #: [id number] #: [id number] Patient: JULIO JIMENEZ PAST SURGICAL HISTORY 1. Cholecystectomy. 2. Lobectomy. 3. Partial thyroidectomy. 4. Hysterectomy. 5. Colonoscopy. 6. Bronchoscopy. SOCIAL HISTORY The patient lives with her daughter. Per the chart, she is a smoker. She apparently walks with a cane. FAMILY HISTORY Noncontributory. ALLERGIES No known allergies. MEDICATIONS Current medications reviewed. Patient currently on meropenem. REVIEW OF SYSTEMS Very limited due to patient's current mental status but all negative except for those stated in the HPI. DIAGNOSTIC IMAGES Chest x-ray with no acute chest findings. Visualization of right basilar infiltrate and right pleural effusion since August 24 exam. Stable cardiomegaly and surgical changes overlying the left hilum and left aspect of the thoracic inlet. CT of her head was no changes, no acute findings. LABORATORY DATA Chemistry - creatinine is 1.4, BUN is 19, glucose is 141, sodium is 137, potassium is 4.9. Hematology - white count is 5.3, hemoglobin 9.1, platelets 386. Urinalysis from September 26 with 3+ leukocyte esterase, 3+ proteins, 2+ blood, 5-10 red blood cells, large amount of white blood cells, 3+ bacteria. Urine culture with E. coli ESBL. Blood cultures, one of two, with coagulase negative Staph. PHYSICAL EXAM GENERAL: No apparent distress. Awake. CURRENT VITAL SIGNS: Temperature is 98.4, heart rate 67, respirations 20, blood pressure is 140/77. HEAD, EARS, EYES, NOSE AND THROAT: Eyes - equal and reactive to light and accommodation. Head - normocephalic. NECK: Supple. CARDIOVASCULAR: Regular rate. PULMONARY: Clear to auscultation, nonlabored. GI: Soft, nontender. Positive bowel sounds. MUSCULOSKELETAL: Generalized weakness throughout. Mild left arm Unit #: [id number] #: [id number] Patient: JULIO JIMENEZ contracture. SKIN: Dry and intact. ASSESSMENT 61-year-old -Cuban female admitted with apparent altered mental status and urine culture with positive E. coli ESBL concerning for a UTI. It sounds as though urine culture may have been improperly collected. At this point, will repeat straight cath UA and culture. Will rule out any type of urinary tract infection versus contamination. Patient has been afebrile and no leukocytosis since admission. One of two blood cultures with coagulase negative Staph also appears to be a contamination. Patient with no obvious risk factors. Vancomycin has been stopped. Will continue meropenem at this time and follow up on straight cath UA and culture. Patient will be seen by Dr. Schultz who will have further recommendations. At this point, patient clinically stable with no leukocytosis or fever. Will follow up on cultures. Thank you for consultation. Dictated by... Marlen Maynard APRN for Rukhsana Pickens/crystal TD: 10/02/2016 11:34 JOB #: [id number] CONSULTATION REPORT Page 1 of 1 X X CONSULTATION REPORT
--- NOTE | ~2016-09-26 | CO ---
Unit #: [id number] #: [id number] Patient: JULIO JIMENEZ [id number] [address] [address] [id number] I MR#: [id number] NAME: JULIO JIMENEZ ROOM: 325 Age: 61 Sex: F Admission Date: 09/26/2016 : 1955 Attending Physician: Lenin Becerra M.D. Primary Care Physician: Liv Richardson M.D. Consultation Date: 09/27/2016 CONSULTATION REPORT REASON FOR CONSULTATION Elevated creatinine level. HISTORY OF PRESENT ILLNESS The patient is a 61-year-old female who follows with Dr. Yang in the office for chronic kidney disease stage 3, history of lung cancer, hypertension, hyperlipidemia, congestive heart failure, diabetes, history of pancreatitis, brought in for altered mental status. The creatinine was noted to be 2.9 with baseline creatinine around 2. Previously echocardiogram in 2012 with ejection fraction of 45%-50%, moderate inferior wall hypokinesia and normal right ventricular systolic function. Hemoglobin A1c noted to be 9. Urine culture with more than 100,000 gram negative rods. The patient has been started on Rocephin. PAST MEDICAL HISTORY 1. Chronic kidney disease stage 3. 2. Chronic obstructive pulmonary disease. Follows with Dr. Mcneill. 3. History of lung cancer status post lobectomy. 4. History of hypertension. 5. History of hyperlipidemia. 6. Cardiomyopathy with ejection fraction 45%-50%. 7. History of diabetes. 8. History of TIA. 9. History of pancreatitis. PAST SURGICAL HISTORY 1. Cholecystectomy. 2. Lobectomy. 3. Hysterectomy. 4. Partial thyroidectomy. SOCIAL HISTORY The patient lives with family. FAMILY HISTORY Significant for chronic kidney disease in mother. ALLERGIES No known drug allergies. HOME MEDICATIONS 1. Humalog 45 b.i.d. 2. Zoloft 100 daily. 3. Calcitriol 0.5 daily. Unit #: [id number] #: [id number] Patient: JULIO JIMENEZ 4. Seroquel daily. 5. Hydralazine 100 mg t.i.d. 6. Isosorbide 20 mg b.i.d. 7. Linzess 290 daily. 8. Prilosec 40 daily. REVIEW OF SYSTEMS CVS as mentioned. Respiratory as above. GI no diarrhea, no vomiting. no hematuria, no dysuria. PHYSICAL EXAMINATION GENERAL: The patient is awake and alert. VITALS: Temperature 98.9, heart rate 91 per minute, saturation 98%, blood pressure 150/74. HEENT: Head is atraumatic. Extraocular movements are intact. NECK: Supple. No elevation of JVD. CHEST: Decreased air entry in the bases. HEART: S1 and S2 audible. No S3 or S4. ABDOMEN: Soft. There is no organomegaly. No guarding. No rigidity. No rebound tenderness. There is trace edema. DIAGNOSTIC STUDIES LABORATORY: Yesterday's lab data includes sodium 141, potassium 5.1, chloride 106, CO2 21, BUN 41, creatinine 2.9, calcium 8.7, glucose 133, albumin 2.7. pH 7.28, pCO2 42, pO2 114, saturation 96%. Urinalysis with 3+ leukocyte esterase, gram negative rods on urine cultures. Started on Rocephin. ASSESSMENT/PLAN 1. ELISHA, possible ATN versus prerenal secondary to underlying urinary tract infection. The patient has been stated on IV antibiotics. Will need to follow. No current need for dialysis. Expected renal function to improve. We will follow and gently hydrate. Hold the diuresis at this time. 2. Urinary tract infection. 3. Hypertension. 4. Diabetes. 5. Check proteinuria. Expect renal function to stabilize. Dictated by... Rukhsana Garcia TD: 09/28/2016 06:59 JOB #: [id number] CONSULTATION REPORT Page 1 of 1 X Massimo De La Fuente MD CONSULTATION REPORT
--- NOTE | ~2016-09-26 | EKG ---
PATIENT: JULIO JIMENEZ UNIT #: [id number] Ventricular Rate: 89 BPM Atrial Rate: 89 BPM P-R Interval: 184 ms QRS Duration: 80 ms Q-T Interval: 354 ms QTC Calculation(Bezet): 430 ms P [place]: 54 degrees Calculated R [place]: 8 degrees Calculated T [place]: 136 degrees Diagnosis Line: Normal sinus rhythm Diagnosis Line: Nonspecific ST and T wave abnormality Diagnosis Line: Abnormal ECG Diagnosis Line: When compared with ECG of 11-AUG-2016 13:32, Diagnosis Line: T wave inversion now evident in Inferior leads Diagnosis Line: Nonspecific T wave abnormality now evident in Diagnosis Line: Anterolateral leads Diagnosis Line: Confirmed by LEANDER HENDRICKS MD ([id number]) on Diagnosis Line: 09/26/2016 10:46:15 PM INTERPRETING MD: EDYTA
--- NOTE | ~2016-09-26 | CR72 ---
[facility] A Service of [facility] & [facility] RADIOLOGY TEXT RESULTS PATIENT: JULIO JIMENEZ LOCATION: [facility] 325-01 : 53 UNIT #: [id number] AGE: [address]: Lenin Becerra MD SEX: F ORDER DR: [id number] [facility] [address] [place], [place] [address] [id number] E MR#: [id number] #: [id number] NAME: JULIO JIMENEZ : 1955 SEX: F STUDY DATE/TIME: 09/26/2016 12:10 UNIT: ISMAEL ROOM: STUDY DESCRIPTION: CR Chest Single View Portable Attending Physician: Keon Atwood M.D. Ordering Physician: Ed Zander Flores M.D. Primary Care Physician: Liv Richardson M.D. MEDICAL IMAGING REPORT This report is preliminary unless electronic signature is present EXAM AP portable chest DATE 09/26/2016 at 1210 HISTORY 61-year-old female with acute mental status changes, and shortness of breath for 1 day. History of lung cancer. COMPARISON AP portable chest 08/24/2016. FINDINGS There is [id number]-[id number] but stable cardiac enlargement. Mild surgical clips are projected over the thoracic inlet from the left of midline and over the left hilum. No acute airspace disease is identified. No pleural effusion or pneumothorax is evident. The enteric tube, left IJ and right IJ central lines have been removed since previous study. No pneumothorax is appreciated. IMPRESSION 1. No acute chest findings. Resolution of right basilar infiltrate and small right pleural effusion since the 08/24/2016 exam. 2. Stable cardiomegaly. 3. Surgical changes overlying the left hilum and the left aspect of the thoracic inlet. Dictated by... Dorota Braun M.D. THIS IS AN ELECTRONICALLY VERIFIED REPORT [facility] A Service of [facility] & [facility] RADIOLOGY TEXT RESULTS PATIENT: JULIO JIMENEZ LOCATION: [facility] 325-01 : 53 UNIT #: [id number] AGE: [address]: Lenin Becerra MD SEX: F ORDER DR: Dorota Braun M.D. at 09/27/2016 12:08 PM Wilber/arlyn TD: 09/26/2016 15:14 JOB #: [id number] MEDICAL IMAGING REPORT Page 1 of 1 COPY
--- NOTE | ~2016-09-26 | CT71 ---
[facility] A Service [facility] RADIOLOGY TEXT RESULTS PATIENT: JULIO JIMENEZ LOCATION: [place] [address] : 53 UNIT #: [id number] AGE: [address]: Maye Valentine MD SEX: F ORDER DR: [id number] [place], [place] [address] [id number] E MR#: [id number] Acc #: [id number] NAME: JULIO JIMENEZ : 1955 SEX: F STUDY DATE/TIME: 09/26/2016 12:57 UNIT: ISMAEL ROOM: STUDY DESCRIPTION: CT Head Wo Contrast Attending Physician: Vadim Atwood Ordering Physician: Jose Roberto Flores M.D. Primary Care Physician: Liv Richardson M.D. MEDICAL IMAGING REPORT This report is preliminary unless electronic signature is present EXAM CT scan of the head without contrast INDICATION Increase in fever starting last night. Lethargy. COMPARISON 08/04/2016 TECHNIQUE Unenhanced images were obtained through the brain. This CT exam was performed with one or more of the following radiation dose reduction techniques: Automatic exposure control, adjustment of mA and/or kV according to patient size, and iterative reconstruction. FINDINGS There is mild generalized atrophy with symmetric small vessel ischemic changes. There are no masses or extra-axial fluid collections. IMPRESSION No change. No acute findings. Dictated by... Fam Hatch M.D. THIS IS AN ELECTRONICALLY VERIFIED REPORT Fam Hatch M.D. at 09/26/2016 8:15 PM FEL/arlyn TD: 09/26/2016 16:03 JOB #: [id number] [facility] A Service [facility] RADIOLOGY TEXT RESULTS PATIENT: JULIO JIMENEZ LOCATION: [facility] 325 : 53 UNIT #: [id number] AGE: [address]: Maye Valentine MD SEX: F ORDER DR: MEDICAL IMAGING REPORT Page 1 of 1 COPY
--- NOTE | ~2016-09-26 | DS ---
Unit #: [id number] #: [id number] Patient: JULIO JIMENEZ [id number] [address] [address] [id number] I MR#: [id number] NAME: JULIO JIMENEZ ROOM: 325 Age: 61 Sex: F Admission Date: 09/26/2016 : 1955 Discharge Date: 10/03/2016 Attending Physician: Tiago Hooks M.D. Primary Care Physician: Liv Richardson M.D. DISCHARGE SUMMARY PERTINENT HISTORY AND HOSPITAL COURSE The patient is a 61-year-old woman with a history significant for chronic kidney disease, diabetes mellitus, schizoaffective disorder, presented to the hospital with symptoms of altered mental status. Her urinalysis suggested a urinary tract infection as the cause of her altered mental status. Urine culture grew ESBL. She received treatment with meropenem. Follow up urinalysis, urine culture did not demonstrate further infection. Also during her admission, the patient had acute renal failure, acute on chronic kidney disease with creatinine of 2.9 for which she was hydrated and her renal function improved. During her admission, the patient had an episode of hypoglycemia. Her home medication included Humalog mix 75/25 45 units subcu twice a day. This medication was discontinued. There were no further episodes of hypoglycemia. The patient required minimal insulin during her admission and she will be discharged on a sliding scale. It is likely the patient was noncompliant with her Humalog mix 75/25. Her confusion subsequently resolved. Her renal function improved to baseline. At discharge, the patient is comfortable. The patient will be discharged home with home health services and PT/OT. DISCHARGE MEDICATIONS 1. Zoloft 200 mg p.o. once daily. 2. Seroquel XR 400 mg p.o. at bedtime. 3. Aricept 10 mg p.o. once daily. 4. Linzess 290 mg p.o. once daily. 5. Hydralazine 100 mg p.o. t.i.d. 6. Humalog KwikPen - for blood sugar greater than 200 two units, for blood sugar greater than 250 four units, and for blood sugar greater than 300 six units. 7. Ferrous gluconate 324 mg p.o. once daily. 8. Omeprazole 40 mg p.o. once daily. 9. Isosorbide dinitrate 20 mg p.o. b.i.d. 10. Calcitriol 0.5 mg p.o. daily. 11. Sodium bicarbonate 650 mg tab, one p.o. q.8 hourly. DISCHARGE INSTRUCTIONS Patient to follow up with primary care physician. Patient is to follow up with her tank builder and erector, Dr. Yang, in two to three weeks. The patient is to have home health services at time of discharge. DISCHARGE DIAGNOSES 1. Altered mental status. 2. Confusion. 3. Urinary tract infection. 4. Diabetes mellitus with episode of hypoglycemia. Unit #: [id number] #: [id number] Patient: JULIO JIMENEZ 5. Acute renal failure. Dictated by... Rukhsana Richmond/crystal TD: 10/04/2016 07:04 JOB #: [id number] DISCHARGE SUMMARY Page 1 of 1 X X DISCHARGE SUMMARY
[~2016-09-26 10:59] MED LIST changes: +AMOX-CLAV 400-1 EACH PO; +ASPIRIN ENTERI325 M1 PO; +CALCITRIOL0.5 MCG PO; +CEFDINIR300 M1 PO; +DOK100 MG PO; +DONEPEZIL HCL10 MG PO; +GABAPENTIN400 M2 PO; +HUMALOG KW200 UNIT/1 SUBQ; +LINZESS290 MCG PO; +MIRTAZAPINE7.5 MG PO; +MUCUS RELIEF600 M1 PO; +NITROSTAT0.4 MG PO; +PROMETHAZINE D118 ML PO; +ZANAFLEX PO
[2016-09-26 11:46] LABS: BASOPHIL# 0.1 X10e3 (0-0.3); BASOPHIL% 1.1 % (0-2.5); EOSINOPHIL% 0.4 % (0.0-7.0); HEMATOCRIT 34.9 % (35.0-45.0); HEMOGLOBIN 10.8 gm/dL (12.0-16.0); LYMPHOCYTE# 2.7 X10e3 (1.0-3.5); MEAN CELL VOLUME 80.9 FL (83-96); MEAN CORPUSCULAR HEMOGLOBIN 25.1 PG (28-34); MEAN CORPUSCULAR HGB CONC 31.1 g/dL (30-36); MEAN PLATELET VOLUME 8.5 FL (6.5-11.5); MONOCYTE# 0.8 X10e3 (0-1.0); MONOCYTE% 7.4 % (3.0-12.0); NEUTROPHIL# 6.9 X10e3 (1.5-7.1); NEUTROPHIL% 65.1 % (40-75); PLATELET COUNT 360 X10e3 (140-420); RED BLOOD COUNT 4.32 X10e (3.90-5.30); WHITE BLOOD COUNT 10.5 X10e3 (4.0-10.5)
[2016-09-26 11:58] LABS: DIFF IND NO
[2016-09-26 12:24] LABS: ALBUMIN SERUM 2.7 g/dL (3.5-5.0); ALKALINE PHOSPHATASE 129 U/L (32-92); ALT (SGPT) 8 U/L (10-40); AST (SGOT) 13 U/L (10-42); BILIRUBIN, DIRECT 0.1 mg/dL (0.0-0.2); BILIRUBIN,INDIRECT 0.2 mg/dL (0.0-0.9); BILIRUBIN,TOTAL 0.3 mg/dL (0.2-2.0); BLOOD UREA NITROGEN 41 mg/dL (9-23); BUN/CREATININE RATIO 14.13; CALCIUM SERUM 8.7 mg/dL (8.4-10.2); CARBON DIOXIDE 21 mmol/L (22-31); CHLORIDE 106 mmol/L (100-111); CREATININE SERUM 2.9 mg/dL (0.6-1.4); GLOM FILT RATE Estimated 19.2 mL/min (>60); GLUCOSE FASTING 133 mg/dL (70-110); POTASSIUM 5.1 mmol/L (3.5-5.1); PROTEIN TOTAL SERUM 7.3 g/dL (6.0-8.3); SODIUM 141 mmol/L (135-145)
[2016-09-26 12:32] LABS: ALCOHOL BLOOD <5 mg/dL ([, 0])
[2016-09-26 12:46] LABS: ARTERIAL BLD GAS O2 SATURATION 96.3 % (90.0-100.0); ARTERIAL BLOOD GAS CARBOXY HB 1.3 %sat (0.0-9.0); ARTERIAL BLOOD GAS HCO3 20.2 mmol/L; ARTERIAL BLOOD GAS MET HB 0.8 %sat (0.0-2.0); ARTERIAL BLOOD GAS PCO2 42.1 mmHg (35.0-45.0); ARTERIAL BLOOD GAS pH 7.289 (7.350-7.450)
[2016-09-26 12:47] LABS: ARTERIAL BLOOD GAS ART SITE RIGHT RADIAL; ARTERIAL BLOOD GAS DELIVERY NASAL CANNULA; ARTERIAL DRAW? YES
[2016-09-26 13:49] LABS: URINE SOURCE CLEAN CATCH
[2016-09-26 13:55] LABS: URINE APPEARANCE TURBID; URINE BILIRUBIN NEG (NEG); URINE BLOOD 2+ (NEG); URINE COLOR YELLOW; URINE GLUCOSE NEG (NEG); URINE KETONE TRACE (NEG); URINE LEUKOCYTE ESTERASE 3+ (NEG); URINE NITRATE NEG (NEG); URINE PH 5.5 (5-8); URINE PROTEIN 3+ (NEG); URINE UROBILINOGEN 0.2 MG/DL (NEG)
[2016-09-26 13:57] LABS: CULTURE INDICATED? YES; URINE BACTERIA AUWI 4+ (NEGATIVE); URINE SQUAMOUS EPITHELIAL CELL MOD /[HPF]; UWBCS1 AUWI INNUM (0-5)
[2016-09-26] MEDS ORDERED: ISORDIL PO (14:35)
[2016-09-26] MEDS ORDERED: LINZESS290 MCG PO (14:35)
[2016-09-26] MEDS ORDERED: PRILOSEC PO (14:35)
[2016-09-26] MEDS ORDERED: HYDRALAZINE HC100 MG PO (14:35)
[2016-09-26] MEDS ORDERED: KCL PO (14:36)
[2016-09-26] MEDS ORDERED: TYLENOL #3 PO (14:36)
[2016-09-26 16:53] LABS: MB 2.7 ng/ml
[2016-09-27 12:21] LABS: HEMATOCRIT 31.1 % (35.0-45.0); HEMOGLOBIN 9.7 gm/dL (12.0-16.0); MEAN CELL VOLUME 81.4 FL (83-96); MEAN CORPUSCULAR HEMOGLOBIN 25.5 PG (28-34); MEAN CORPUSCULAR HGB CONC 31.3 g/dL (30-36); MEAN PLATELET VOLUME 8.3 FL (6.5-11.5); RED BLOOD COUNT 3.83 X10e (3.90-5.30); RED CELL DISTRIBUTION WIDTH 19.1 % (11.0-15.5); WHITE BLOOD COUNT 10.6 X10e3 (4.0-10.5)
[2016-09-27 13:00] LABS: ALBUMIN SERUM 2.3 g/dL (3.5-5.0); BILIRUBIN,TOTAL 0.3 mg/dL (0.2-2.0); BUN/CREATININE RATIO 16.25; CALCIUM SERUM 8.4 mg/dL (8.4-10.2); CREATININE SERUM 2.4 mg/dL (0.6-1.4); GLOM FILT RATE Estimated 24.1 mL/min (>60); POTASSIUM 4.7 mmol/L (3.5-5.1); PROTEIN TOTAL SERUM 6.4 g/dL (6.0-8.3)
[2016-09-27 13:27] LABS: %MB 1.9 % (0.0-4.0); MB 2.2 ng/ml
[2016-09-28 04:28] LABS: BASOPHIL# 0.2 X10e3 (0-0.3); BASOPHIL% 1.3 % (0-2.5); EOSINOPHIL# 0.1 X10e3 (0-0.7); EOSINOPHIL% 0.9 % (0.0-7.0); HEMATOCRIT 28.6 % (35.0-45.0); HEMOGLOBIN 8.9 gm/dL (12.0-16.0); LYMPHOCYTE# 5.2 X10e3 (1.0-3.5); LYMPHOCYTE% 33.7 % (17.0-45.0); MEAN CELL VOLUME 80.7 FL (83-96); MEAN CORPUSCULAR HGB CONC 30.9 g/dL (30-36); MEAN PLATELET VOLUME 8.1 FL (6.5-11.5); MONOCYTE# 0.5 X10e3 (0-1.0); MONOCYTE% 3.4 % (3.0-12.0); NEUTROPHIL# 9.4 X10e3 (1.5-7.1); NEUTROPHIL% 60.7 % (40-75); PLATELET COUNT 324 X10e3 (140-420); RED BLOOD COUNT 3.55 X10e (3.90-5.30); WHITE BLOOD COUNT 15.5 X10e3 (4.0-10.5)
[2016-09-28 04:29] LABS: DIFF IND YES
[2016-09-28 04:59] LABS: ANISOCYTOSIS SL; TARGET CELLS SL
[2016-09-28 05:00] LABS: ACANTHOCYTES PRESENT; HYPOCHROMIA SL; OVALOCYTES PRESENT; PLATELET ESTIMATE NORMAL (NORMAL); POLYCHROMASIA SL
[2016-09-28 05:20] LABS: BUN/CREATININE RATIO 16.5; CALCIUM SERUM 8.2 mg/dL (8.4-10.2); POTASSIUM 3.6 mmol/L (3.5-5.1)
[2016-09-28 08:16] LABS: BUN/CREATININE RATIO 14.76; CREATININE SERUM 2.1 mg/dL (0.6-1.4); GLOM FILT RATE Estimated 28.3 mL/min (>60); POTASSIUM 3.8 mmol/L (3.5-5.1)
[2016-09-29 07:18] LABS: BUN/CREATININE RATIO 14.11; CALCIUM SERUM 8.6 mg/dL (8.4-10.2); CREATININE SERUM 1.7 mg/dL (0.6-1.4); GLOM FILT RATE Estimated 36.6 mL/min (>60); POTASSIUM 3.6 mmol/L (3.5-5.1)
[2016-09-30 05:08] LABS: BASOPHIL# 0.1 X10e3 (0-0.3); BASOPHIL% 0.8 % (0-2.5); EOSINOPHIL# 0.1 X10e3 (0-0.7); EOSINOPHIL% 1.1 % (0.0-7.0); HEMATOCRIT 29.1 % (35.0-45.0); HEMOGLOBIN 9.1 gm/dL (12.0-16.0); LYMPHOCYTE# 2.9 X10e3 (1.0-3.5); LYMPHOCYTE% 31.4 % (17.0-45.0); MEAN CORPUSCULAR HGB CONC 31.4 g/dL (30-36); MEAN PLATELET VOLUME 7.7 FL (6.5-11.5); MONOCYTE# 0.9 X10e3 (0-1.0); MONOCYTE% 9.3 % (3.0-12.0); NEUTROPHIL# 5.3 X10e3 (1.5-7.1); NEUTROPHIL% 57.4 % (40-75); PLATELET COUNT 386 X10e3 (140-420); RED CELL DISTRIBUTION WIDTH 19.2 % (11.0-15.5); WHITE BLOOD COUNT 9.3 X10e3 (4.0-10.5)
[2016-09-30 05:09] LABS: DIFF IND NO
[2016-09-30 07:18] LABS: CALCIUM SERUM 8.7 mg/dL (8.4-10.2); CREATININE SERUM 1.8 mg/dL (0.6-1.4); GLOM FILT RATE Estimated 34.1 mL/min (>60); POTASSIUM 4.6 mmol/L (3.5-5.1)
[2016-09-30 12:12] LABS: CK TOTAL 22 IU/L (26-140)
[2016-10-01 06:44] LABS: BUN/CREATININE RATIO 11.25; CREATININE SERUM 1.6 mg/dL (0.6-1.4); GLOM FILT RATE Estimated 39.4 mL/min (>60); POTASSIUM 4.9 mmol/L (3.5-5.1)
[2016-10-02 06:45] LABS: BUN/CREATININE RATIO 13.57; CALCIUM SERUM 8.4 mg/dL (8.4-10.2); CREATININE SERUM 1.4 mg/dL (0.6-1.4); GLOM FILT RATE Estimated 46.2 mL/min (>60); POTASSIUM 4.9 mmol/L (3.5-5.1)
[2016-10-02 16:44] LABS: URINE APPEARANCE TURBID; URINE BILIRUBIN NEG (NEG); URINE BLOOD NEG (NEG); URINE COLOR YELLOW; URINE GLUCOSE NEG (NEG); URINE KETONE TRACE (NEG); URINE LEUKOCYTE ESTERASE NEG (NEG); URINE NITRATE NEG (NEG); URINE PH 5.5 (5-8); URINE PROTEIN 3+ (NEG); URINE SPECIFIC GRAVITY 1.021 (1.003-1.035); URINE UROBILINOGEN 0.2 MG/DL (NEG)
[2016-10-02 16:47] LABS: URINE BACTERIA AUWI NEG (NEGATIVE); URINE SQUAMOUS EPITHELIAL CELL MANY /[HPF]
[2016-10-02 16:51] LABS: U HYALINE CASTS AUWI 0-2 /[LPF]; URINE GRANULAR CAST 0-2 /[HPF]; URINE YEAST PRESENT
[2016-10-03] MEDS ORDERED: HUMALOG KW100 UNIT/1 SUBQ (13:06)
[2016-10-03] MEDS ORDERED: SODIUM BICARBO650 MG PO (13:14)
[2016-10-03] MEDS ORDERED: FERROUS GLUCON324 M1 PO (13:15)
== END 2016-10-03 15:06 | disposition home health service (06) | DRG 689 ==
LOC: CED 10:59 → CEDOF 15:05 → C3A PCU 15:05 → CEDOF 16:24 → CED 16:24 → C3A PCU 18:12 → CEDOF 18:12 → C3A PCU 09-27 08:28
PROVIDERS: Emergency Medicine; Family Medicine; Internal Medicine
PROC: 05HB33Z Insertion of Infusion Device into Right Basilic Vein, Percutaneous Approach (ICD-10-PCS; principal; 2016-09-30)
PROC: B54MZZA Ultrasonography of Right Upper Extremity Veins, Guidance (ICD-10-PCS; 2016-09-30)
DX: N39.0 Urinary tract infection, site not specified (principal); J96.01 Acute respiratory failure with hypoxia; G92 Toxic encephalopathy; N17.9 Acute kidney failure, unspecified; N18.3 Chronic kidney disease, stage 3 (moderate); I13.0 Hypertensive heart and chronic kidney disease with heart failure and stage 1 through stage 4 chronic kidney disease, or unspecified chronic kidney disease; I42.9 Cardiomyopathy, unspecified; E87.4 Mixed disorder of acid-base balance; I50.22 Chronic systolic (congestive) heart failure; E78.5 Hyperlipidemia, unspecified; J44.9 Chronic obstructive pulmonary disease, unspecified; Z85.118 Personal history of other malignant neoplasm of bronchus and lung; E11.22 Type 2 diabetes mellitus with diabetic chronic kidney disease; F25.9 Schizoaffective disorder, unspecified; G47.33 Obstructive sleep apnea (adult) (pediatric); F03.90 Unspecified dementia, unspecified severity, without behavioral disturbance, psychotic disturbance, mood disturbance, and anxiety; Z90.49 Acquired absence of other specified parts of digestive tract; Z90.710 Acquired absence of both cervix and uterus; Z86.73 Personal history of transient ischemic attack (TIA), and cerebral infarction without residual deficits; Z79.4 Long term (current) use of insulin; B96.20 Unspecified Escherichia coli [E. coli] as the cause of diseases classified elsewhere; E66.9 Obesity, unspecified; E87.6 Hypokalemia; E11.649 Type 2 diabetes mellitus with hypoglycemia without coma
CPT/HCPCS: 36415; 36600; 70450; 71010; 80048; 80053; 80076; 80202; 81003; 82140; 82150; 82550; 82553; 82607; 82803; 82947; 83036; 83690; 84443; 84484; 85025; 85027; 87040; 87086; 87088; 87186; 92526; 92610; 93005; 94760; 96361; 96374; 97110; 97116; 97162; 97166; 97530; 97535; 99285; G0480; G8978-GP; G8979-GP; G8987-GO; G8988-GO; G8996-GN; G8997-GN; G8998-GN; J0696; J1815; J2020; J2185; J2270; J3370